=== PATIENT | female | born 1955 | race Caucasian/White ===

== ENCOUNTER → 2021-07-05 09:38 | Outpatient (CLI) | payer MEDICARE, SELFPAY ==
--- NOTE | 2021-07-05 | DI.RAD.S_ITS ---
PROCEDURE: XR KNEE LT 1TO2V INDICATIONS: Pain in unspecified knee,Low back pain,unspecifieD TECHNIQUE: 2 views of the knee were acquired. COMPARISON: None. FINDINGS: Bones: No fractures or dislocations. Moderate narrowing of the lateral compartment joint space with prominent osteophytosis and sclerosis of the lateral tibial plateau. The medial and patellofemoral joint spaces are maintained but demonstrate periarticular osteophytosis. Soft tissues: Small joint effusion. No suspicious soft tissue calcifications. IMPRESSION: Knee degeneration as detailed above. Dictated by: Jesús Keenan M.D. on 07/05/2021 at 11:35 Approved by: Jesús Keenan M.D. on 07/05/2021 at 11:36
--- NOTE | 2021-07-05 | DI.RAD.S_ITS ---
PROCEDURE: XR LUMBAR SPINE 2-3V INDICATIONS: Pain in unspecified knee,Low back pain,unspecifieD TECHNIQUE: 2 views of the lumbar spine were acquired. COMPARISON: None. FINDINGS: Bones: 5 idy-[id number]-dudwepn vertebrae are present. There is normal bony alignment. No vertebral body compression fractures. No suspicious bony lesions. Mild degenerative disc disease at L 2-L3, L3-L4 and L5-S1. Mild facet arthropathy at L4-L5 and L5-S1. Soft tissues: Overlying bowel gas pattern is normal. No suspicious soft tissue calcifications. Cholecystectomy clips are noted. There is a large amount of stool in colon. IMPRESSION: Mild degenerative disc and facet disease in lumbar spine. Dictated by: Marin Redding M.D. on 07/05/2021 at 17:20 Approved by: Marin Redding M.D. on 07/05/2021 at 17:21
--- NOTE | 2021-07-05 | DI.RAD.S_ITS ---
PROCEDURE: XR KNEE RT 1TO2V INDICATIONS: Pain in unspecified knee,Low back pain,unspecifieD TECHNIQUE: 2 views of the knee were acquired. COMPARISON: None. FINDINGS: Bones: No fractures or dislocations. Mild narrowing of the medial and patellofemoral compartment joint spaces with osteophytosis. A superior patellar enthesophyte is seen. Moderate to advanced joint space narrowing of the lateral compartment with sclerosis of the opposing articular surfaces and osteophytosis. Soft tissues: Trace joint effusion. No suspicious soft tissue calcifications. IMPRESSION: Knee degeneration as detailed above. Dictated by: Jesús Keenan M.D. on 07/05/2021 at 11:37 Approved by: Jesús Keenan M.D. on 07/05/2021 at 11:38
[2021-07-05 10:36] LABS: Add Manual Diff / Slide Review NO; Basophils Absolute Auto 100 /uL (0-100); Eosinophils Absolute Auto 300 /uL (0-450); Eosinophils Percent Auto 3.9 % (2-4); Hematocrit 40.2 % (36-46); Hemoglobin 13.9 g/dL (12.0-16.0); Lymphocytes Absolute Auto 900 /uL (1100-4500); Lymphocytes Percent Auto 12.6 % (25-40); Mean Corpuscular HGB Conc 34.5 % (30-36); Mean Corpuscular Hemoglobin 31.2 PG (26-34); Mean Corpuscular Volume 90.3 fL (80-100); Monocytes Absolute Auto 800 /uL (0-900); Monocytes Percent Auto 11.7 % (3-14); Neutrophils Absolute Auto 4800 /uL (1500-7000); Neutrophils Percent Auto 70.8 % (50-75); Platelet Count 263 X10^3/uL (150-400); Red Blood Cell Count 4.45 X10^6/uL (4.0-5.2); Red Cell Distribution Width 12.1 % (11.6-14.8); White Blood Cell Count 6.8 X10^3/uL (4.5-11.0)
[2021-07-05 10:49] LABS: Alanine Aminotransferase 17 IU/L (<35); Albumin 4.7 g/dL (3.5-5.0); Albumin Globulin Ratio 1.4 (1.0-2.8); Alkaline Phosphatase 81 U/L (38-126); Aspartate Aminotransferase 28 IU/L (14-36); BUN Creatinine Ratio 18.6 (6-22); Bilirubin Total 0.7 mg/dL (0.2-1.3); Blood Urea Nitrogen 16 mg/dL (7-17); Calcium 9.6 mg/dL (8.4-10.2); Carbon Dioxide 29 mmol/L (22-32); Chloride 103 mmol/L (98-107); Cholesterol 176 mg/dL (140-199); Estimated Glomerular Filt Rate > 60.0 mL/min (>60); Globulin 3.4 g/dL (1.7-4.1); Glucose 111 mg/dL (80-110); HDL Cholesterol 76 mg/dL (40-60); HEMOLYSIS < 15 (0-50); LDL Cholesterol Calculated 72 mg/dL (<100); Potassium 4.4 mmol/L (3.4-5.1); Sodium 141 mmol/L (137-145); Total Protein 8.1 g/dL (6.3-8.2); Triglycerides 140 mg/dL (35-150)
== END ==
PROVIDERS: PCP Physician Assistant; Referring Provider Physician Assistant; Visit Provider Physician Assistant
DX: E78.5 Hyperlipidemia, unspecified (principal); M25.569 Pain in unspecified knee; M54.59 Other low back pain
CPT/HCPCS: 36415; 72100; 73560; 80053; 80061; 85025

== ENCOUNTER → 2021-08-14 09:40 | Outpatient (CLI) | payer MEDICARE, SELFPAY ==
[2021-08-14 11:21] LABS: COVID19 -Nasal RAPID Negative (Negative)
== END ==
PROVIDERS: Family Provider Physician Assistant; PCP Physician Assistant; Visit Provider Surgery
DX: Z20.822 Contact with and (suspected) exposure to COVID-19 (principal); Z01.812 Encounter for preprocedural laboratory examination
CPT/HCPCS: 87635; C9803

== ENCOUNTER 2021-08-15 11:34 | Day surgery (SDC) | payer MEDICARE, SELFPAY ==
--- NOTE | 2021-08-15 | PATH_ITS ---
[facility] Accession Number: [id number] No. of containers..02 Tissue . 01 Material submitted: . PART A: colon - TRANSVERSE COLON POLYP PART B: colon - ASCENDING COLON POLYP . 01 Diagnosis: A. Transverse Colon, Polyp, Biopsy: Tubular adenoma. . B. Ascending Colon, Polyp, Biopsy: Tubular adenoma. MRV 08/17/2021 1047 Local . 01 Electronically signed: . Fara Currie MD, Pathologist NPI- [id number] . 01 Gross description: . Part A: TRANSVERSE COLON POLYP: Received in formalin is 1 fragment(s) of carrion, soft tissue measuring 0.3 x 0.2 x 0.1 cm submitted entirely in 1 cassette(s) Part B: ASCENDING COLON POLYP: Received in formalin is 1 fragment(s) of carrion, soft tissue measuring 0.3 x 0.2 x 0.1 cm submitted entirely in 1 cassette(s) /CPE 08/16/2021 0850 Local . 01 Pathologist provided ICD-10: D12.3, D12.2 . 01 CPT . 869087, [id number] Specimen Comment: A courtesy copy of this report has been sent to [phone] Performed at: 01 [facility] [address] [place] [address] [address] [facility] [place][note 2], [place], [place] [id number] MD Surinder Suarez MD Phone: [phone]
[2021-08-15 11:50] VITALS: BMI 30.2
[2021-08-15 11:54] VITALS: BP 141/78; PULSE 73; RESP 15; TEMP 36.6; O2SAT 96
[2021-08-15] MEDS: SODIUM CHLORIDE 0.9% 1,000 ML 70 ML IV (12:01)
--- NOTE | 2021-08-15 13:46 | PM.HP.1 ---
History of Present Illness History of Present Illness Date Patient Seen: 08/15/21 Time Patient Seen: 13:45 Chief complaint: SDC Narrative: Patient is a pleasant 66-year-old female who presented for colonoscopy. She has a personal history colon polyps. Last colonoscopy was in 2017 performed by [place] in [place]. She denies diarrhea or constipation. Patient History Medical History Chicken pox (~1966) Depression (~1998) Hyperlipidemia Measles (~1966) Mumps (~1966) Sleep apnea (~2019) Surgical History (Updated 02/25/21 @ 19:37 by Denisha Ricci) Anesthesia History of breast implant removal (~05/2020) History of cataract removal with insertion of prosthetic lens (~2019) Tubal (~1987) Family & Social History Family History (Updated 02/25/21 @ 19:41 by Denisha Ricci) Father Alzheimer's disease Mother History of heart disease Brother Stroke Grandfather Pneumonia Family/Other Congenital heart defect Social History: household members spouse Tobacco & Substance use: Smoking Status Never smoker alcohol intake current alcohol intake frequency a few times a month Substance Use Type does not use Meds Home Medications and Allergies Home Medications Medication Instructions Recorded Confirmed Type bupropion HCl 300 mg 24 hr tablet, 300 mg PO QAM #90 tab 02/15/21 08/15/21 Rx extended release (Wellbutrin XL) rosuvastatin 5 mg tablet 5 mg PO DAILY #90 tab 02/15/21 08/15/21 Rx estradiol (Estrace) 1 g VAGINAL 3XW #42.5 g 07/05/21 07/05/21 Rx meloxicam See Rx Instructions .ROUTE .COMPLEX 08/15/21 08/15/21 History Allergies Allergy/AdvReac Type Severity Reaction Status Date / Time No Known Drug Allergies Allergy Unverified 07/05/21 08:45 Review of Systems Review of Systems ROS: Yes All systems reviewed with the patient and are negative except as otherwise documented Exam Vital Signs (past 8 hours): - 08/15/21 11:54 Temperature 98 F Pulse Rate 73 Respiratory Rate 15 Blood Pressure 141/78 H Pulse Oximetry 96 Oxygen Delivery Method Room Air Const General: cooperative, healthy appearing, comfortable, well developed and well groomed HENMN Head: normocephalic and atraumatic Resp Effort & Inspection: normal respiratory effort, able to speak in complete sentences and no audible wheezes Auscultation: clear to auscultation bilaterally Cardio Rate: regular rate Rhythm: regular rhythm GI Palpation: soft and No rigid Extrem General: no clubbing, cyanosis or edema Assessment & Plan Assessment & Plan narrative: 1. Personal history colon polyps -colonoscopy today, further recommendations to follow Time Spent With Patient Critical Care time: I spent a total of [] minutes of critical care time on this patient's care today; this time is exclusive of procedural time.
[2021-08-15 14:26] VITALS: BP 120/75; PULSE 62; RESP 20; TEMP 37; O2SAT 99
--- NOTE | 2021-08-15 14:28 | PM.OP.COLON ---
Operative Date/Time/Diagnoses Date of procedure: 08/15/21 Time of procedure: 14:02 Procedure Notes Procedure in detail: Surgeon: Rekha Khan DO Procedure: Colonoscopy with polypectomy Preoperative diagnosis: 1. Personal history colon polyps, last colonoscopy 2016 Postoperative diagnosis: 1. 6 mm polyp in the transverse colon removed with cold snare 2. 3 mm polyp in the ascending colon removed with Jumbo forceps 4. Sigmoid and descending colon diverticulosis 5. Grade 1 internal hemorrhoids 6. Otherwise unremarkable colonoscopy Medications: Monitored anesthesia care Preanesthesia Assessment An H and P was performed/updated and the Px?s ASA class is 2. The procedure was discussed in detail with the patient. The potential risks and complications including infection, bleeding, missed lesions, perforation, need for surgery in case of perforation, prolonged hospital stay, and were explained. A brief question and answer period was allotted and once all questions were answered, informed consent was obtained. The patient was brought back to the procedure room and placed on standard monitoring. The patient?s vital signs were monitored continuously throughout the entire procedure. Prior to starting, a timeout was performed to confirm the patient?s identity, allergies, medications, and procedure. Procedure in detail The patient was placed in left lateral decubitus position and once adequate sedation was obtained a SHOAIB was performed. The digital rectal examination did not reveal any palpable lesions. The tip of the colonoscope was placed in the anal canal and advanced without difficulty all the way to the cecum which was identified by the appendiceal orifice and the ileocecal valve. Careful examination of all pan of the colon was performed with irrigation of any residual stool. Patient was noted to have a 3 mm polyp in the ascending colon removed with Jumbo forceps. She was noted to have a 6 mm polyp in the transverse colon removed with cold snare. Descending and sigmoid colon revealed diverticulosis. Grade 1 internal hemorrhoids were noted on retroflexion. Exam was otherwise unremarkable. The patient tolerated the procedure well and will be brought back to the recovery area to be discharged once criteria are met. The prep was judged to be good/excellent and adequate to identify polyps less than 5 mm. The withdrawal time was 11min. Complications There were no complications and estimated blood loss was minimal. Recommendations: Resume previous diet Continue outPx medications Follow up pathology results Repeat colonoscopy will be determined after pathology results are reviewed An emergency contact number was given to the patient for any complications related to the procedure
[2021-08-15 14:30] VITALS: BP 126/79; PULSE 60; RESP 17; O2SAT 99
[2021-08-15 14:36] VITALS: BP 123/66; PULSE 57; RESP 18; O2SAT 99
[2021-08-15 14:50] VITALS: BP 127/67; PULSE 67; RESP 16; TEMP 36.6; O2SAT 98
== END 2021-08-15 15:00 | disposition home or self-care (01) ==
PROVIDERS: Family Provider Physician Assistant; PCP Physician Assistant; Referring Provider Student in an Organized Health Care Education/Training Program; Visit Provider Student in an Organized Health Care Education/Training Program
PROC: 0DJD8ZZ Inspection of Lower Intestinal Tract, Via Natural or Artificial Opening Endoscopic (ICD-10-PCS; CPT 45378; principal; 2021-08-15 13:00)
DX: Z12.11 Encounter for screening for malignant neoplasm of colon (principal); Z86.010 Personal history of colon polyps; G47.33 Obstructive sleep apnea (adult) (pediatric); K57.30 Diverticulosis of large intestine without perforation or abscess without bleeding; K64.0 First degree hemorrhoids; D12.3 Benign neoplasm of transverse colon; D12.2 Benign neoplasm of ascending colon
CPT/HCPCS: 45385; 45380; J2704

== ENCOUNTER 2021-09-28 09:00 | Outpatient (RCR) | payer MEDICARE, SELFPAY ==
--- NOTE | 2021-08-16 17:05 | PT.OIE ---
Current Diagnoses Sciatica, right side (08/16/21) Muscle weakness (generalized) (08/16/21) Cystocele, unspecified (08/16/21) Incomplete uterovaginal prolapse (08/16/21) Past Medical History (Last Reviewed 08/15/21 @ 13:47 by Rekha Khan DO) Chicken pox (~1966) Depression (~1998) History of cataract removal with insertion of prosthetic lens (~2019) Hyperlipidemia Measles (~1966) Mumps (~1966) Sleep apnea (~2019) Past Surgical History (Last Updated 02/25/21 @ 19:37 by Denisha Ricci) Anesthesia History of breast implant removal (~05/2020) History of cataract removal with insertion of prosthetic lens (~2019) Tubal (~1987) Visit Care Team Role Provider Type Meghan Monique PA-C Family Provider Non-Staff Primary Care Provider Specialty: Medical Address: [address] [place] [address], [id number] Email: Behzad Rios MD Attending Provider Physician Referring Provider Specialty: VETERINARIAN Address: [address] [place] [address], [address], [place], [address] Email: [email or web address] Physical Therapy Initial Evaluation PT-OP-A Visit Information Start: 08/10/21 18:21 Freq: Status: Active Protocol: Document 08/16/21 15:24 LRN (Rec: 08/16/21 17:04 LRN [id number]) Out-Patient Physical Therapy Visit Information Visit Information Visit Type Initial Evaluation Visit Start Time 15:24 Visit Stop Time 16:13 Total Visit Minutes 49 Visit Number 1 Evaluation Information Evaluation Date 08/16/21 Precautions Precautions bilateral knee arthritis and pain, R sciatic pain - nightly . PT-OP-B Current Condition Start: 08/10/21 18:21 Freq: Status: Active Protocol: Document 08/16/21 15:24 LRN (Rec: 08/16/21 17:04 LRN [id number]) Current Condition History of Current Condition Onset Date 05/2021 Current Complaints Feels the prolapse with palpation. Hx of UTI's. History of Current Condition In the shower felt something at the base of the vaginal canal. Was told her prolapse was a stage 4. Currently does not feel she has a UTI, but doesn't have normal symptoms of UTI. R Sciatic pain that botheres her daily but now bothers her at night. R Sciatic pain and ms cramps down the RLE from moving (Dec 2021) and too much walking. Prior Treatments and Tests None Future Testing and Treatments Planned August 2021. Developmental History Developmental History Childbirth at age 42 and 30. Both vaginal births. 2nd baby was 9.5 pounds. Treatment Goals Patient/Caregiver Goals Pt goal with therapy is being on estrodial and physical therapy to strengthen PF to be able to use a pessary. 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 Baseline Function- Other Did not feel drop in inner tissues prior to May 2021. Current Functional Impairments (Reported) Functional Limitations- ADL's None. No urinary leakage. Has had recurrent UTI's in the past 5 yrs (3-4/yr). She has no symptoms of UTI, feels tired, SOB, mild increase in voiding. Personal Factors Other Personal Factors That May Effect Bilateral knee knee. Doing Therapy/Recovery remodeling of house. PT-OP-C Subjective Start: 08/10/21 18:21 Freq: Status: Active Protocol: Document 08/16/21 15:24 LRN (Rec: 08/16/21 17:04 LRN [id number]) Patient Questionnaires Pelvic Pain and Urgency/Frequency Patient Symptom Scale Pelvic Pain Score 1 OP-PT Pain Assessment Pain Assessment Grid Paper Pain Assessment Grid Completed Yes Location R Lowback/posterior thigh Pain Location Details R low back/posterior thigh Intensity 4 Scale Used Numeric (0 - 10) Frequency Intermittent PT-OP-I Pelvic Floor Start: 08/10/21 18:21 Freq: Status: Active Protocol: Document 08/16/21 15:24 LRN (Rec: 08/16/21 17:04 LRN [id number]) Pelvic Floor Assessment Urine Pelvic Floor Surgery No Other Leakage Causes Once in a while with sneeze or cough Leaks Per Day 0 Bowel Bowel Movement Frequency Prior to prolapse diagnosis was 1-2x/day, now after taking fiber 3-4x/day [place] Stool Chart Comments Sometimes naga, mostly soft . Pelvic Clock Pelvic Clock 6-9 Hypertonic Pelvic Clock Other Quick Flicks: Weakness of R side. Able to do 7 reps in 10 secs. Long Holds: Able to hold for 10 secs, decrease felt after 5 secs. Substitutes PF contraction with use gluteal and abdominal muscles. R side of lateral wall soft tissue dysfunction of hardened tissues and ridges, possible scarring. Prolapse Cystocele Grade 3 Prolapse Comments Uterus felt at finger tip of a 3 finger reach Perineal Descent Resting Absent Bearing Absent Contraction Ability Voluntary Contraction Moderate Voluntary Relaxation Moderate Manual Muscle Testing Left 3 Manual Muscle Testing Right 2 Manual Muscle Testing Anterior 3 Manual Muscle Testing Posterior 2 Muscle Endurance (Seconds) 5 Number of Quick Contractions In 10 7 Seconds Comments Pelvic Floor Comments Long Hold: 10 secs, but weakens after 5 seconds. PT-OP-J Posture/Palpation/Skin Start: 08/10/21 18:21 Freq: Status: Active Protocol: Document 08/16/21 15:24 LRN (Rec: 08/16/21 17:04 LRN [id number]) Posture Evaluation Position Standing Head/C-Spine Posture Forward Head L-Spine Posture Flattened Knee Posture (L) Genu Valgus,(R) Genu Valgus PT-OP-K Range of Motion Start: 08/10/21 18:21 Freq: Status: Active Protocol: Document 08/16/21 15:24 LRN (Rec: 08/16/21 17:04 LRN [id number]) Lumbar Spine Range of Motion Lumbar Spine Active Degrees Testing Position Standing Flexion 110 Extension 5 Rotation Left 10 Rotation Right 20 Lateral Flexion Left 10 Lateral Flexion Right 8 Comments Flex with 70 deg's hip flexion Ext with 15 deg's hip ext Hip Goniometric Range of Motion Hip Right Passive Testing Position Supine Internal Rotation 40 External Rotation 40 Left Passive Testing Position Supine Internal Rotation 35 External Rotation 45 PT-OP-M Strength Start: 08/10/21 18:21 Freq: Status: Active Protocol: Document 08/16/21 15:24 LRN (Rec: 08/16/21 17:04 LRN [id number]) Trunk Strength Trunk Manual Muscle Testing Testing Position Supine Core Stabilization Pt demonstrates rotation weakness with manual muscle testing. Hip Strength Hip Manual Muscle Testing Right Flexion (L2) 3+ Fair+ Extension (S1) 3- Fair- Abduction 2 Poor Adduction 4- Good- External Rotation 4 Good Internal Rotation 5 Normal Left Flexion (L2) 3 Fair Extension (S1) 3- Fair- Abduction 3- Fair- Adduction 3 Fair External Rotation 5 Normal Internal Rotation 5 Normal PT-OP-Q Treatments Start: 08/10/21 18:21 Freq: Status: Active Protocol: Document 08/16/21 15:24 LRN (Rec: 08/16/21 17:04 LRN [id number]) Self-Care/Home Management Treatment Education Other Education Discussed results of evaluation, goals, and plan of care (POC). Pt agreeable to goals and POC. Activities Self-Care/Home Management Activities Issued & reviewed HEP: Monica ex's and discussed exercise of Quick Flicks, Long Holds. PT-OP-T Assessment and Plan Start: 08/10/21 18:21 Freq: Status: Active Protocol: Document 08/16/21 15:24 LRN (Rec: 08/16/21 17:04 LRN [id number]) Physical Therapy Assessment Rehab Potential Rehabilitation Potential Good Evaluation Complexity Number of Personal Factors/Comorbidities 1-2 Number of Body Systems Impaired 4 or More Clinical Presentation at Evaluation Evolving Impairments Impairments Pain,Posture,ROM,Strength Other Impairments Cystocele Uterine Prolapse. Goals Three Impairment Decreased PF strength Impairment PF strength 3/5 Short Term Goal (STG) Pt will be educated in how to have bowel movements with the least amount of intra- abdominal pressure possible. STG Duration 09/14/21 Food Truck Caterer Goal (LTG) Increase PF muscle strength grade 4-5/5 with endurance of 10 secs in order for pt to be fit for pessary. LTG Duration 10/29/21 Two Impairment Poor coordination of PF contractions Impairment Uses substitute muscles to get a PF contraction. Short Term Goal (STG) Pt will be able to manage changes in intraabdominal pressure with appropriate PF muscle activation (breathing, transfers, lifting, reaching). STG Duration 09/14/21 Food Truck Caterer Goal (LTG) Pt will be able to perform a PF contraction without use of substitute muscles. LTG Duration 10/29/21 One Impairment Lacks appropriate self care HEP Short Term Goal (STG) Pt will be educated in proper body mechanics for daily activities and transfers. STG Duration 09/07/21 Food Truck Caterer Goal (LTG) Pt will be independent in a self care HEP of PF strengthening and hip/LB stretches. LTG Duration 10/29/21 Assessment Summary Assessment Pt presents in standing/supine with grade 3 cystocele. Her bladder does not drop beyond the hymen at rest or with a cough. With vaginal palpation she denies tenderness. She has a palpable soft tissue presence at the end of a 3 finger insertion reach. The pt has a palpable superficial and deep pelvic floor (PF) contraction with weakness more in the lateral pan. Her contractions are palpable with the L side being stronger than the right. She uses substitute muscles to obtain a PF contraction and demonstrates decreased core stability. The pt is having R low back/sciatic pain that will hinder her rehabilitation ; therefore her R sciatic pain will need to be addressed during her PF rehabilitation in order to promote PF strengthening. The pt will benefit from skilled physical therapy to achieve the above stated goals. Physical Therapy Plan Frequency and Duration Frequency of Treatment 1x/Week Plan of Care Start Date 08/16/21 Plan of Care End Date 10/29/21 Therapeutic Interventions Therapeutic Interventions Home Exercise Program,Manual Therapy,Neuromuscular Re- education,Patient/Caregiver Education,Self-Care/Home Management,Soft Tissue Mobilization,Therapeutic Activities,Therapeutic Exercises Modalities Biofeedback,Cold Pack/Ice Massage,Electric Stimulation, Ultrasound Next Visit Focus/Plan Next Note Type Treatment Note Next Visit Plan Pt education/ADL training: PF anatomy & function, bladder health & defecation/ micturition training for proper contraction (without sub muscles). Therapeutic ex instruction for the PF/LE and trunk muscles with and without EMG biofeedback. Assess: PSLR HEP: Hip ROM ex (IR L>R, ER < L), Hip strengthening (flex, ext, AB, AD), core stab. Manual: Sacral balancing for R sciatic pain. Kinetic activities and neuromuscular reeducation to improve functional use of the PF in tasks that cause symptoms. Consider home EMG biofeedback or endurance training.
--- NOTE | 2021-08-16 17:05 | PT.OPPOC ---
Physical, Occupational & Speech Therapy At [facility] Current Diagnoses Sciatica, right side (08/16/21) Muscle weakness (generalized) (08/16/21) Cystocele, unspecified (08/16/21) Incomplete uterovaginal prolapse (08/16/21) Visit Care Team Role Provider Type Meghan Monique PA-C Family Provider Non-Staff Primary Care Provider Specialty: Medical Address: [address] [place] [address], [id number] Email: Behzad Rios MD Attending Provider Physician Referring Provider Specialty: COMB CAPPER Address: [facility] [place] [address], [address], [place], [address] Email: [email or web address] Plan Of Care PT-OP-T Assessment and Plan Start: 08/10/21 18:21 Freq: Status: Active Protocol: Document 08/16/21 15:24 LRN (Rec: 08/16/21 17:04 LRN [id number]) Physical Therapy Assessment Rehab Potential Rehabilitation Potential Good Evaluation Complexity Number of Personal Factors/Comorbidities 1-2 Number of Body Systems Impaired 4 or More Clinical Presentation at Evaluation Evolving Impairments Impairments Pain,Posture,ROM,Strength Other Impairments Cystocele Uterine Prolapse. Goals Three Impairment Decreased PF strength Impairment PF strength 3/5 Short Term Goal (STG) Pt will be educated in how to have bowel movements with the least amount of intra- abdominal pressure possible. STG Duration 09/14/21 Longterm Goal (LTG) Increase PF muscle strength grade 4-5/5 with endurance of 10 secs in order for pt to be fit for pessary. LTG Duration 10/29/21 Two Impairment Poor coordination of PF contractions Impairment Uses substitute muscles to get a PF contraction. Short Term Goal (STG) Pt will be able to manage changes in intraabdominal pressure with appropriate PF muscle activation (breathing, transfers, lifting, reaching). STG Duration 09/14/21 Longterm Goal (LTG) Pt will be able to perform a PF contraction without use of substitute muscles. LTG Duration 10/29/21 One Impairment Lacks appropriate self care HEP Short Term Goal (STG) Pt will be educated in proper body mechanics for daily activities and transfers. STG Duration 09/07/21 Longterm Goal (LTG) Pt will be independent in a self care HEP of PF strengthening and hip/LB stretches. LTG Duration 10/29/21 Assessment Summary Assessment Pt presents in standing/supine with grade 3 cystocele. Her bladder does not drop beyond the hymen at rest or with a cough. With vaginal palpation she denies tenderness. She has a palpable soft tissue presence at the end of a 3 finger insertion reach. The pt has a palpable superficial and deep pelvic floor (PF) contraction with weakness more in the lateral pan. Her contractions are palpable with the L side being stronger than the right. She uses substitute muscles to obtain a PF contraction and demonstrates decreased core stability. The pt is having R low back/sciatic pain that will hinder her rehabilitation ; therefore her R sciatic pain will need to be addressed during her PF rehabilitation in order to promote PF strengthening. The pt will benefit from skilled physical therapy to achieve the above stated goals. Physical Therapy Plan Frequency and Duration Frequency of Treatment 1x/Week Plan of Care Start Date 08/16/21 Plan of Care End Date 10/29/21 Therapeutic Interventions Therapeutic Interventions Home Exercise Program,Manual Therapy,Neuromuscular Re- education,Patient/Caregiver Education,Self-Care/Home Management,Soft Tissue Mobilization,Therapeutic Activities,Therapeutic Exercises Modalities Biofeedback,Cold Pack/Ice Massage,Electric Stimulation, Ultrasound Next Visit Focus/Plan Next Note Type Treatment Note Next Visit Plan Pt education/ADL training: PF anatomy & function, bladder health & defecation/ micturition training for proper contraction (without sub muscles). Therapeutic ex instruction for the PF/LE and trunk muscles with and without EMG biofeedback. Assess: PSLR HEP: Hip ROM ex (IR L>R, ER < L), Hip strengthening (flex, ext, AB, AD), core stab. Manual: Sacral balancing for R sciatic pain. Kinetic activities and neuromuscular reeducation to improve functional use of the PF in tasks that cause symptoms. Consider home EMG biofeedback or endurance training. Plan of Care Dates Plan of Care Start Date 08/16/21 Plan of Care End Date 10/29/21 Electronically Signed by: Kandy Daniel, PT 08/16/21 0551 If you are in agreement with this Plan of Care, please return a signed and dated copy. I have reviewed this Plan of Care and certify that the skilled therapy services above are required to meet the patient?s needs. Physician Signature Date Printed Name and Credentials Clinical Instructor Signature Printed Name and Credentials
--- NOTE | 2021-08-21 16:33 | PT.OTN ---
Current Diagnoses Sciatica, right side (08/21/21) Muscle weakness (generalized) (08/21/21) Cystocele, unspecified (08/21/21) Incomplete uterovaginal prolapse (08/21/21) Physical Therapy Treatment Note PT-OP-A Visit Information Start: 08/10/21 18:21 Freq: Status: Active Protocol: Document 08/21/21 15:18 LRN (Rec: 08/21/21 16:32 LRN [id number]) Out-Patient Physical Therapy Visit Information Visit Information Visit Type Treatment Note Visit Start Time 15:18 Visit Stop Time 15:58 Total Visit Minutes 40 Visit Number 2 Evaluation Information Evaluation Date 08/16/21 Precautions Precautions bilateral knee arthritis and pain, R sciatic pain - nightly . PT-OP-B Current Condition Start: 08/10/21 18:21 Freq: Status: Active Protocol: Document 08/16/21 15:24 LRN (Rec: 08/16/21 17:04 LRN [id number]) Current Condition History of Current Condition Onset Date 05/2021 Current Complaints Feels the prolapse with palpation. Hx of UTI's. History of Current Condition In the shower felt something at the base of the vaginal canal. Was told her prolapse was a stage 4. Currently does not feel she has a UTI, but doesn't have normal symptoms of UTI. R Sciatic pain that botheres her daily but now bothers her at night. R Sciatic pain and ms cramps down the RLE from moving (Dec 2021) and too much walking. Prior Treatments and Tests None Future Testing and Treatments Planned August 2021. Developmental History Developmental History Childbirth at age 42 and 30. Both vaginal births. 2nd baby was 9.5 pounds. Treatment Goals Patient/Caregiver Goals Pt goal with therapy is being on estrodial and physical therapy to strengthen PF to be able to use a pessary. 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 Baseline Function- Other Did not feel drop in inner tissues prior to May 2021. Current Functional Impairments (Reported) Functional Limitations- ADL's None. No urinary leakage. Has had recurrent UTI's in the past 5 yrs (3-4/yr). She has no symptoms of UTI, feels tired, SOB, mild increase in voiding. Personal Factors Other Personal Factors That May Effect Bilateral knee knee. Doing Therapy/Recovery remodeling of house. PT-OP-C Subjective Start: 08/10/21 18:21 Freq: Status: Active Protocol: Document 08/21/21 15:18 LRN (Rec: 08/21/21 16:32 LRN [id number]) OP-PT Subjective Patient Comments Patient Comments Doing Keg[place] fast and slow contractions. PT-OP-I Pelvic Floor Start: 08/10/21 18:21 Freq: Status: Active Protocol: Document 08/16/21 15:24 LRN (Rec: 08/16/21 17:04 LRN [id number]) Pelvic Floor Assessment Urine Pelvic Floor Surgery No Other Leakage Causes Once in a while with sneeze or cough Leaks Per Day 0 Bowel Bowel Movement Frequency Prior to prolapse diagnosis was 1-2x/day, now after taking fiber 3-4x/day [place] Stool Chart Comments Sometimes naga, mostly soft . Pelvic Clock Pelvic Clock 6-9 Hypertonic Pelvic Clock Other Quick Flicks: Weakness of R side. Able to do 7 reps in 10 secs. Long Holds: Able to hold for 10 secs, decrease felt after 5 secs. Substitutes PF contraction with use gluteal and abdominal muscles. R side of lateral wall soft tissue dysfunction of hardened tissues and ridges, possible scarring. Prolapse Cystocele Grade 3 Prolapse Comments Uterus felt at finger tip of a 3 finger reach Perineal Descent Resting Absent Bearing Absent Contraction Ability Voluntary Contraction Moderate Voluntary Relaxation Moderate Manual Muscle Testing Left 3 Manual Muscle Testing Right 2 Manual Muscle Testing Anterior 3 Manual Muscle Testing Posterior 2 Muscle Endurance (Seconds) 5 Number of Quick Contractions In 10 7 Seconds Comments Pelvic Floor Comments Long Hold: 10 secs, but weakens after 5 seconds. PT-OP-J Posture/Palpation/Skin Start: 08/10/21 18:21 Freq: Status: Active Protocol: Document 08/16/21 15:24 LRN (Rec: 08/16/21 17:04 LRN [id number]) Posture Evaluation Position Standing Head/C-Spine Posture Forward Head L-Spine Posture Flattened Knee Posture (L) Genu Valgus,(R) Genu Valgus PT-OP-K Range of Motion Start: 08/10/21 18:21 Freq: Status: Active Protocol: Document 08/16/21 15:24 LRN (Rec: 08/16/21 17:04 LRN [id number]) Lumbar Spine Range of Motion Lumbar Spine Active Degrees Testing Position Standing Flexion 110 Extension 5 Rotation Left 10 Rotation Right 20 Lateral Flexion Left 10 Lateral Flexion Right 8 Comments Flex with 70 deg's hip flexion Ext with 15 deg's hip ext Hip Goniometric Range of Motion Hip Right Passive Testing Position Supine Internal Rotation 40 External Rotation 40 Left Passive Testing Position Supine Internal Rotation 35 External Rotation 45 PT-OP-M Strength Start: 08/10/21 18:21 Freq: Status: Active Protocol: Document 08/16/21 15:24 LRN (Rec: 08/16/21 17:04 LRN [id number]) Trunk Strength Trunk Manual Muscle Testing Testing Position Supine Core Stabilization Pt demonstrates rotation weakness with manual muscle testing. Hip Strength Hip Manual Muscle Testing Right Flexion (L2) 3+ Fair+ Extension (S1) 3- Fair- Abduction 2 Poor Adduction 4- Good- External Rotation 4 Good Internal Rotation 5 Normal Left Flexion (L2) 3 Fair Extension (S1) 3- Fair- Abduction 3- Fair- Adduction 3 Fair External Rotation 5 Normal Internal Rotation 5 Normal PT-OP-Q Treatments Start: 08/10/21 18:21 Freq: Status: Active Protocol: Document 08/21/21 15:18 LRN (Rec: 08/21/21 16:32 LRN [id number]) Therapeutic Exercises Supine Exercises LE Roll in/out w/PF/Deep breathing Supine Exercise Name LE roll in/out w/PF/Deep Breathing Reps/Minutes 8' Comments Much cuing needed for coordination of ex. Deep Breathing Supine Exercise Name Deep Breathing Reps/Minutes 3' Comments Much cuing needed to slow breath Piriformis stretch Supine Exercise Name Piriformis stretch (L>R), knee to opp shoulder Side bilateral Reps/Minutes 1' each x 2 Comments Extra time for training on breath & PF contract for positioning Lateral Hip stretch Supine Exercise Name Lateral Hip stretch (L>R) Side bilateral Reps/Minutes 1' each Hip ER stretch Supine Exercise Name Fig 4 stretch (R>L) Side bilateral Reps/Minutes 1' each x 2 Comments Extra time for training on breath & PF contract for positioning Self-Care/Home Management Treatment Education Patient Education Home Exercise Program Other Education Pt education in anatomy and function of PF and tension connection to bilateral hips. Pt education in core anatomy for abdominal pressure system for moving into exercises, coordinating breathing with movement & defecation training for to manage changes in intraabdominal pressure with appropriate PF muscle activation (breathing, squatty potty). Discussed use of fiber for regular bowel movements, bowel movement norms, and use . Educated pt in PF anatomy. Pt education in how to slow breath during deep breathing exercise (use of small straw). Activities Self-Care/Home Management Activities Issued and reviewed handouts for pelvic anatomy. Issued & reviewed HEP for diaphragmatic breathing and hip ER/IR stretches. PT-OP-T Assessment and Plan Start: 08/10/21 18:21 Freq: Status: Active Protocol: Document 08/21/21 15:18 LRN (Rec: 08/21/21 16:32 LRN [id number]) Physical Therapy Assessment Goals Three Impairment Decreased PF strength Impairment PF strength 3/5 Short Term Goal (STG) Pt will be educated in how to have bowel movements with the least amount of intra- abdominal pressure possible. (08/21/21: Pt I/S in use of breath and squatty potty for reducing need of intra- abdominal pressure for having a BM). STG Duration 09/14/21 (08/21/21: MET GOAL) Milk Drier Goal (LTG) Increase PF muscle strength grade 4-5/5 with endurance of 10 secs in order for pt to be fit for pessary. LTG Duration 10/29/21 Two Impairment Poor coordination of PF contractions Impairment Uses substitute muscles to get a PF contraction. Short Term Goal (STG) Pt will be able to manage changes in intraabdominal pressure with appropriate PF muscle activation (breathing, transfers, lifting, reaching). STG Duration 09/14/21 [place]rier Goal (LTG) Pt will be able to perform a PF contraction without use of substitute muscles. LTG Duration 10/29/21 One Impairment Lacks appropriate self care HEP Short Term Goal (STG) Pt will be educated in proper body mechanics for daily activities and transfers. STG Duration 09/07/21 Retirement Goal (LTG) Pt will be independent in a self care HEP of PF strengthening and hip/LB stretches. (08/21/21: HEP issued: hip ER /IR stretches) LTG Duration 10/29/21 (08/21/21: Progressed) Progress Towards Goals Progress Comments Progressed HEP. STG #3 MET. Assessment Summary Assessment Pt is very receptive to educational training and shows good understanding of pressure system of the core and need to coordinate breathing and PF contraction for transfers and movement getting into ex positions. The pt is obviously limited in hip ER mobility. Physical Therapy Plan Frequency and Duration Frequency of Treatment 1x/Week Plan of Care Start Date 08/16/21 Plan of Care End Date 10/29/21 Next Visit Focus/Plan Next Note Type Treatment Note Next Visit Plan Review issued HEP of hip stretches, add iliopsoas or hamstring stretch if needed ( assess for tightness). Pt education/ADL training: Bladder health & training for proper PF contraction (without sub muscles) and with transfers, lifting, reaching. Therapeutic ex instruction for the PF/LE and trunk muscles with and without EMG biofeedback. Review HEP issued: Hip ROM ex (IR L>R, ER R>L) Assess: PSLR HEP:, Hip strengthening (flex, ext, AB, AD), core stab. Manual: Sacral balancing for R sciatic pain. Kinetic activities and neuromuscular reeducation to improve functional use of the PF in tasks that cause symptoms. Consider home EMG biofeedback or endurance training.
--- NOTE | 2021-08-30 12:38 | PT.OTN ---
Current Diagnoses Sciatica, right side (08/30/21) Muscle weakness (generalized) (08/30/21) Cystocele, unspecified (08/30/21) Incomplete uterovaginal prolapse (08/30/21) Physical Therapy Treatment Note PT-OP-A Visit Information Start: 08/10/21 18:21 Freq: Status: Active Protocol: Document 08/30/21 09:05 LRN (Rec: 08/30/21 09:49 LRN [id number]) Out-Patient Physical Therapy Visit Information Visit Information Visit Type Treatment Note Visit Start Time 09:07 Visit Stop Time 09:47 Total Visit Minutes 40 Visit Number 3 Evaluation Information Evaluation Date 08/16/21 Precautions Precautions bilateral knee arthritis and pain, R sciatic pain - nightly . PT-OP-B Current Condition Start: 08/10/21 18:21 Freq: Status: Active Protocol: Document 08/16/21 15:24 LRN (Rec: 08/16/21 17:04 LRN [id number]) Current Condition History of Current Condition Onset Date 05/2021 Current Complaints Feels the prolapse with palpation. Hx of UTI's. History of Current Condition In the shower felt something at the base of the vaginal canal. Was told her prolapse was a stage 4. Currently does not feel she has a UTI, but doesn't have normal symptoms of UTI. R Sciatic pain that botheres her daily but now bothers her at night. R Sciatic pain and ms cramps down the RLE from moving (Dec 2021) and too much walking. Prior Treatments and Tests None Future Testing and Treatments Planned August 2021. Developmental History Developmental History Childbirth at age 42 and 30. Both vaginal births. 2nd baby was 9.5 pounds. Treatment Goals Patient/Caregiver Goals Pt goal with therapy is being on estrodial and physical therapy to strengthen PF to be able to use a pessary. 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 Baseline Function- Other Did not feel drop in inner tissues prior to May 2021. Current Functional Impairments (Reported) Functional Limitations- ADL's None. No urinary leakage. Has had recurrent UTI's in the past 5 yrs (3-4/yr). She has no symptoms of UTI, feels tired, SOB, mild increase in voiding. Personal Factors Other Personal Factors That May Effect Bilateral knee knee. Doing Therapy/Recovery remodeling of house. PT-OP-C Subjective Start: 08/10/21 18:21 Freq: Status: Active Protocol: Document 08/30/21 09:05 LRN (Rec: 08/30/21 09:49 LRN [id number]) OP-PT Subjective Patient Comments Patient Comments No change. PT-OP-I Pelvic Floor Start: 08/10/21 18:21 Freq: Status: Active Protocol: Document 08/16/21 15:24 LRN (Rec: 08/16/21 17:04 LRN [id number]) Pelvic Floor Assessment Urine Pelvic Floor Surgery No Other Leakage Causes Once in a while with sneeze or cough Leaks Per Day 0 Bowel Bowel Movement Frequency Prior to prolapse diagnosis was 1-2x/day, now after taking fiber 3-4x/day [place] Stool Chart Comments Sometimes naga, mostly soft . Pelvic Clock Pelvic Clock 6-9 Hypertonic Pelvic Clock Other Quick Flicks: Weakness of R side. Able to do 7 reps in 10 secs. Long Holds: Able to hold for 10 secs, decrease felt after 5 secs. Substitutes PF contraction with use gluteal and abdominal muscles. R side of lateral wall soft tissue dysfunction of hardened tissues and ridges, possible scarring. Prolapse Cystocele Grade 3 Prolapse Comments Uterus felt at finger tip of a 3 finger reach Perineal Descent Resting Absent Bearing Absent Contraction Ability Voluntary Contraction Moderate Voluntary Relaxation Moderate Manual Muscle Testing Left 3 Manual Muscle Testing Right 2 Manual Muscle Testing Anterior 3 Manual Muscle Testing Posterior 2 Muscle Endurance (Seconds) 5 Number of Quick Contractions In 10 7 Seconds Comments Pelvic Floor Comments Long Hold: 10 secs, but weakens after 5 seconds. PT-OP-J Posture/Palpation/Skin Start: 08/10/21 18:21 Freq: Status: Active Protocol: Document 08/16/21 15:24 LRN (Rec: 08/16/21 17:04 LRN [id number]) Posture Evaluation Position Standing Head/C-Spine Posture Forward Head L-Spine Posture Flattened Knee Posture (L) Genu Valgus,(R) Genu Valgus PT-OP-K Range of Motion Start: 08/10/21 18:21 Freq: Status: Active Protocol: Document 08/16/21 15:24 LRN (Rec: 08/16/21 17:04 LRN [id number]) Lumbar Spine Range of Motion Lumbar Spine Active Degrees Testing Position Standing Flexion 110 Extension 5 Rotation Left 10 Rotation Right 20 Lateral Flexion Left 10 Lateral Flexion Right 8 Comments Flex with 70 deg's hip flexion Ext with 15 deg's hip ext Hip Goniometric Range of Motion Hip Right Passive Testing Position Supine Internal Rotation 40 External Rotation 40 Left Passive Testing Position Supine Internal Rotation 35 External Rotation 45 PT-OP-M Strength Start: 08/10/21 18:21 Freq: Status: Active Protocol: Document 08/16/21 15:24 LRN (Rec: 08/16/21 17:04 LRN [id number]) Trunk Strength Trunk Manual Muscle Testing Testing Position Supine Core Stabilization Pt demonstrates rotation weakness with manual muscle testing. Hip Strength Hip Manual Muscle Testing Right Flexion (L2) 3+ Fair+ Extension (S1) 3- Fair- Abduction 2 Poor Adduction 4- Good- External Rotation 4 Good Internal Rotation 5 Normal Left Flexion (L2) 3 Fair Extension (S1) 3- Fair- Abduction 3- Fair- Adduction 3 Fair External Rotation 5 Normal Internal Rotation 5 Normal PT-OP-Q Treatments Start: 08/10/21 18:21 Freq: Status: Active Protocol: Document 08/30/21 09:05 LRN (Rec: 08/30/21 09:49 LRN [id number]) Therapeutic Exercises Supine Exercises PF contraction Supine Exercise Name PF contraction without substitute ms. Reps/Minutes 8' Comments Pt needed phys & v cuing for isolation of PF. LE Roll in/out w/PF/Deep breathing Supine Exercise Name LE roll in/out w/PF/Deep Breathing Reps/Minutes 7' Comments Cuing needed for coordination of ex. Piriformis stretch Supine Exercise Name Piriformis stretch (L>R), knee to opp shoulder Side bilateral Reps/Minutes 1' each x 2 Comments Extra time for training on breath & PF contract for positioning Lateral Hip stretch Supine Exercise Name Lateral Hip stretch (L>R) Side bilateral Reps/Minutes 1' each Hip ER stretch Supine Exercise Name Fig 4 stretch (R>L) Side bilateral Reps/Minutes 1' each x 2 Comments Extra time for training on breath & PF contract for positioning Self-Care/Home Management Treatment Education Patient Education Home Exercise Program Other Education Pt educated in proper body mechanics for daily activities and transfers. Reviewed pt educated in intraabdominal pressure with appropriate PF muscle activation (breathing, transfers, lifting, reaching). Activities Self-Care/Home Management Activities Issued & reviewed HEP: ROll for Control Protocol. Issued & reviewed hanout for daily activities proper body mechanics. Issued & reviewed handout for General Vulvar Care nad Genital Hygiene for Women. PT-OP-T Assessment and Plan Start: 08/10/21 18:21 Freq: Status: Active Protocol: Document 08/30/21 09:05 LRN (Rec: 08/30/21 09:49 LRN [id number]) Physical Therapy Assessment Goals Three Impairment Decreased PF strength Impairment PF strength 3/5 Short Term Goal (STG) Pt will be educated in how to have bowel movements with the least amount of intra- abdominal pressure possible. (08/21/21: Pt I/S in use of breath and squatty potty for reducing need of intra- abdominal pressure for having a BM). STG Duration 09/14/21 (08/21/21: MET GOAL) Alf Goal (LTG) Increase PF muscle strength grade 4-5/5 with endurance of 10 secs in order for pt to be fit for pessary. LTG Duration 10/29/21 Two Impairment Poor coordination of PF contractions Impairment Uses substitute muscles to get a PF contraction. Short Term Goal (STG) Pt will be able to manage changes in intraabdominal pressure with appropriate PF muscle activation (breathing, transfers, lifting, reaching). STG Duration 09/14/21 (08/30/21: MET GOAL) Alf Goal (LTG) Pt will be able to perform a PF contraction without use of substitute muscles. LTG Duration 10/29/21 One Impairment Lacks appropriate self care HEP Short Term Goal (STG) Pt will be educated in proper body mechanics for daily activities and transfers. STG Duration 09/07/21 (08/30/21: MET GOAL) Alf Goal (LTG) Pt will be independent in a self care HEP of PF strengthening and hip/LB stretches. (08/21/21: HEP issued: hip ER /IR stretches) LTG Duration 10/29/21 (08/21/21: Progressed) Progress Towards Goals Progress Comments Progressed HEP Assessment Summary Assessment Pt hip ER is tight bilaterally , almost appears L>R today. Pt was able to isolate PF contractions after training and education. Pt was very receptive to intra-abdominal pressure system education and body mechanics training and was able to demonstrate good knowledge with transfers at end of therapy. Verbal cuing may be needed in the future. Physical Therapy Plan Frequency and Duration Frequency of Treatment 1x/Week Plan of Care Start Date 08/16/21 Plan of Care End Date 10/29/21 Next Visit Focus/Plan Next Note Type Treatment Note Next Visit Plan Review: Training for proper PF contraction (without sub muscles) and verbal reminder ( if needed) with transfers, lifting, reaching. Therapeutic ex instruction for the PF/LE and trunk muscles with and without EMG biofeedback. Assess: PSLR HEP:, Hip strengthening (flex, ext, AB, AD), core stab. Monitor: Hip ROM ex (IR L>R, ER R>L) Manual: Sacral balancing for R sciatic pain. Kinetic activities and neuromuscular reeducation to improve functional use of the PF in tasks that cause symptoms. Consider home EMG biofeedback or endurance training.
--- NOTE | 2021-09-20 17:49 | PT.OTN ---
Current Diagnoses Sciatica, right side (09/20/21) Muscle weakness (generalized) (09/20/21) Incomplete uterovaginal prolapse (09/20/21) Physical Therapy Treatment Note PT-OP-A Visit Information Start: 08/10/21 18:21 Freq: Status: Active Protocol: Document 09/20/21 10:48 LRN (Rec: 09/20/21 12:43 LRN [id number]) Out-Patient Physical Therapy Visit Information Visit Information Visit Type Treatment Note Visit Start Time 10:48 Visit Stop Time 11:28 Total Visit Minutes 40 Visit Number 4 Evaluation Information Evaluation Date 08/16/21 Precautions Precautions bilateral knee arthritis and pain, R sciatic pain - nightly . PT-OP-B Current Condition Start: 08/10/21 18:21 Freq: Status: Active Protocol: Document 08/16/21 15:24 LRN (Rec: 08/16/21 17:04 LRN [id number]) Current Condition History of Current Condition Onset Date 05/2021 Current Complaints Feels the prolapse with palpation. Hx of UTI's. History of Current Condition In the shower felt something at the base of the vaginal canal. Was told her prolapse was a stage 4. Currently does not feel she has a UTI, but doesn't have normal symptoms of UTI. R Sciatic pain that botheres her daily but now bothers her at night. R Sciatic pain and ms cramps down the RLE from moving (Dec 2021) and too much walking. Prior Treatments and Tests None Future Testing and Treatments Planned August 2021. Developmental History Developmental History Childbirth at age 42 and 30. Both vaginal births. 2nd baby was 9.5 pounds. Treatment Goals Patient/Caregiver Goals Pt goal with therapy is being on estrodial and physical therapy to strengthen PF to be able to use a pessary. 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 Baseline Function- Other Did not feel drop in inner tissues prior to May 2021. Current Functional Impairments (Reported) Functional Limitations- ADL's None. No urinary leakage. Has had recurrent UTI's in the past 5 yrs (3-4/yr). She has no symptoms of UTI, feels tired, SOB, mild increase in voiding. Personal Factors Other Personal Factors That May Effect Bilateral knee knee. Doing Therapy/Recovery remodeling of house. PT-OP-C Subjective Start: 08/10/21 18:21 Freq: Status: Active Protocol: Document 09/20/21 10:48 LRN (Rec: 09/20/21 12:43 LRN [id number]) OP-PT Subjective Patient Comments Patient Comments States she is more aware of proper mvmt and breathing and with going to bathroom. Not pushing with BM voiding. PT-OP-I Pelvic Floor Start: 08/10/21 18:21 Freq: Status: Active Protocol: Document 08/16/21 15:24 LRN (Rec: 08/16/21 17:04 LRN [id number]) Pelvic Floor Assessment Urine Pelvic Floor Surgery No Other Leakage Causes Once in a while with sneeze or cough Leaks Per Day 0 Bowel Bowel Movement Frequency Prior to prolapse diagnosis was 1-2x/day, now after taking fiber 3-4x/day [place] Stool Chart Comments Sometimes naga, mostly soft . Pelvic Clock Pelvic Clock 6-9 Hypertonic Pelvic Clock Other Quick Flicks: Weakness of R side. Able to do 7 reps in 10 secs. Long Holds: Able to hold for 10 secs, decrease felt after 5 secs. Substitutes PF contraction with use gluteal and abdominal muscles. R side of lateral wall soft tissue dysfunction of hardened tissues and ridges, possible scarring. Prolapse Cystocele Grade 3 Prolapse Comments Uterus felt at finger tip of a 3 finger reach Perineal Descent Resting Absent Bearing Absent Contraction Ability Voluntary Contraction Moderate Voluntary Relaxation Moderate Manual Muscle Testing Left 3 Manual Muscle Testing Right 2 Manual Muscle Testing Anterior 3 Manual Muscle Testing Posterior 2 Muscle Endurance (Seconds) 5 Number of Quick Contractions In 10 7 Seconds Comments Pelvic Floor Comments Long Hold: 10 secs, but weakens after 5 seconds. PT-OP-J Posture/Palpation/Skin Start: 08/10/21 18:21 Freq: Status: Active Protocol: Document 08/16/21 15:24 LRN (Rec: 08/16/21 17:04 LRN [id number]) Posture Evaluation Position Standing Head/C-Spine Posture Forward Head L-Spine Posture Flattened Knee Posture (L) Genu Valgus,(R) Genu Valgus PT-OP-K Range of Motion Start: 08/10/21 18:21 Freq: Status: Active Protocol: Document 08/16/21 15:24 LRN (Rec: 08/16/21 17:04 LRN [id number]) Lumbar Spine Range of Motion Lumbar Spine Active Degrees Testing Position Standing Flexion 110 Extension 5 Rotation Left 10 Rotation Right 20 Lateral Flexion Left 10 Lateral Flexion Right 8 Comments Flex with 70 deg's hip flexion Ext with 15 deg's hip ext Hip Goniometric Range of Motion Hip Right Passive Testing Position Supine Internal Rotation 40 External Rotation 40 Left Passive Testing Position Supine Internal Rotation 35 External Rotation 45 PT-OP-M Strength Start: 08/10/21 18:21 Freq: Status: Active Protocol: Document 08/16/21 15:24 LRN (Rec: 08/16/21 17:04 LRN [id number]) Trunk Strength Trunk Manual Muscle Testing Testing Position Supine Core Stabilization Pt demonstrates rotation weakness with manual muscle testing. Hip Strength Hip Manual Muscle Testing Right Flexion (L2) 3+ Fair+ Extension (S1) 3- Fair- Abduction 2 Poor Adduction 4- Good- External Rotation 4 Good Internal Rotation 5 Normal Left Flexion (L2) 3 Fair Extension (S1) 3- Fair- Abduction 3- Fair- Adduction 3 Fair External Rotation 5 Normal Internal Rotation 5 Normal PT-OP-Q Treatments Start: 08/10/21 18:21 Freq: Status: Active Protocol: Document 09/20/21 10:48 LRN (Rec: 09/20/21 12:43 LRN [id number]) Therapeutic Exercises Supine Exercises PF contraction Supine Exercise Name PF contraction without substitute ms. Reps/Minutes 8' Comments Pt needed phys & v cuing for isolation of PF. LE Roll in/out w/PF/Deep breathing Supine Exercise Name LE roll in/out w/PF/Deep Breathing Reps/Minutes 7' Comments Cuing needed for coordination of ex. Standing Exercises PF/Hamstring stretch Standing Exercise Name PF strengthening/HS stretching Reps/Minutes 5' Comments Extra time for awareness of bladder Self-Care/Home Management Treatment Education Patient Education Body Mechanics,Posture Other Education Educated, and had extensive discussion of use of breathing , posturing for bowel/urinary voiding. Educated, issued & reviewed list of foods and beverages suggestions for bladder diet. Issued, reviewed briefly Bowel Program for a helathy bowel function. Discussed connection between core stabilization and PF strengthening for stability of the abdominal canister and for abdominal pressure management. Activities Self-Care/Home Management Activities Issued & reviewed HEP: Clamshell w/PF quick flicks/ long holds. PT-OP-T Assessment and Plan Start: 08/10/21 18:21 Freq: Status: Active Protocol: Document 09/20/21 10:48 LRN (Rec: 09/20/21 12:43 LRN [id number]) Physical Therapy Assessment Goals Three Impairment Decreased PF strength Impairment PF strength 3/5 Short Term Goal (STG) Pt will be educated in how to have bowel movements with the least amount of intra- abdominal pressure possible. (08/21/21: Pt I/S in use of breath and squatty potty for reducing need of intra- abdominal pressure for having a BM). STG Duration 09/14/21 (08/21/21: MET GOAL) Bandoleer Straightener Stamper Goal (LTG) Increase PF muscle strength grade 4-5/5 with endurance of 10 secs in order for pt to be fit for pessary. LTG Duration 10/29/21 Two Impairment Poor coordination of PF contractions Impairment Uses substitute muscles to get a PF contraction. Short Term Goal (STG) Pt will be able to manage changes in intraabdominal pressure with appropriate PF muscle activation (breathing, transfers, lifting, reaching). STG Duration 09/14/21 (08/30/21: MET GOAL) Fdc Goal (LTG) Pt will be able to perform a PF contraction without use of substitute muscles. (09/20/21: Pt required 1x v. cuing to perform PF contraction without substitute muscles) LTG Duration 10/29/21 (09/20/21: Progressing) One Impairment Lacks appropriate self care HEP Short Term Goal (STG) Pt will be educated in proper body mechanics for daily activities and transfers. STG Duration 09/07/21 (08/30/21: MET GOAL) Fdc Goal (LTG) Pt will be independent in a self care HEP of PF strengthening and hip/LB stretches. (08/21/21: HEP issued: hip ER /IR stretches) (09/20/21: HEP: Clamshell) LTG Duration 10/29/21 (09/20/21: Progressed) Assessment Summary Assessment Pt is able to perform a PF contraction without use of substitute muscles, but required verbal cuing initially to perform. Pt demonstrates good breathing technique with transfers and general mobility. Pt is improving in her ability to manage the pressures in her abdominal canister. Further PF strengthening is needed. Physical Therapy Plan Frequency and Duration Frequency of Treatment 1x/Week Plan of Care Start Date 08/16/21 Plan of Care End Date 10/29/21 Next Visit Focus/Plan Next Note Type Treatment Note Next Visit Plan Monitor for proper PF contraction (without sub muscles). Therapeutic ex instruction for the PF/LE and trunk muscles with and without EMG biofeedback. Assess: PSLR HEP:, Hip strengthening (flex, ext, AB, AD), core stab. Monitor: Hip ROM ex (IR L>R, ER R>L) Manual: Sacral balancing for R sciatic pain. Kinetic activities and neuromuscular reeducation to improve functional use of the PF in tasks that cause symptoms. Consider home EMG biofeedback or endurance training.
--- NOTE | 2021-09-28 17:14 | PT.OTN ---
Current Diagnoses Sciatica, right side (09/28/21) Muscle weakness (generalized) (09/28/21) Incomplete uterovaginal prolapse (09/28/21) Physical Therapy Treatment Note PT-OP-A Visit Information Start: 08/10/21 18:21 Freq: Status: Active Protocol: Document 09/28/21 09:06 LRN (Rec: 09/28/21 09:47 LRN [id number]) Out-Patient Physical Therapy Visit Information Visit Information Visit Type Treatment Note Visit Start Time 09:06 Visit Stop Time 09:47 Total Visit Minutes 41 Visit Number 5 Evaluation Information Evaluation Date 08/16/21 Precautions Precautions bilateral knee arthritis and pain, R sciatic pain - nightly . PT-OP-B Current Condition Start: 08/10/21 18:21 Freq: Status: Active Protocol: Document 08/16/21 15:24 LRN (Rec: 08/16/21 17:04 LRN [id number]) Current Condition History of Current Condition Onset Date 05/2021 Current Complaints Feels the prolapse with palpation. Hx of UTI's. History of Current Condition In the shower felt something at the base of the vaginal canal. Was told her prolapse was a stage 4. Currently does not feel she has a UTI, but doesn't have normal symptoms of UTI. R Sciatic pain that botheres her daily but now bothers her at night. R Sciatic pain and ms cramps down the RLE from moving (Dec 2021) and too much walking. Prior Treatments and Tests None Future Testing and Treatments Planned August 2021. Developmental History Developmental History Childbirth at age 42 and 30. Both vaginal births. 2nd baby was 9.5 pounds. Treatment Goals Patient/Caregiver Goals Pt goal with therapy is being on estrodial and physical therapy to strengthen PF to be able to use a pessary. 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 Baseline Function- Other Did not feel drop in inner tissues prior to May 2021. Current Functional Impairments (Reported) Functional Limitations- ADL's None. No urinary leakage. Has had recurrent UTI's in the past 5 yrs (3-4/yr). She has no symptoms of UTI, feels tired, SOB, mild increase in voiding. Personal Factors Other Personal Factors That May Effect Bilateral knee knee. Doing Therapy/Recovery remodeling of house. PT-OP-C Subjective Start: 08/10/21 18:21 Freq: Status: Active Protocol: Document 09/28/21 09:06 LRN (Rec: 09/28/21 09:47 LRN [id number]) OP-PT Subjective Patient Comments Patient Comments Forgot appt with Dr. Rios, rescheduled 10/09/21. Sciatic n is better, but laying down at night has R LE anteriorly in all postions and is not able to get a good night sleep . HX of RLE night pain and leg cramping that was worse than now because she can at least shift positions get some relief all night long. PT-OP-I Pelvic Floor Start: 08/10/21 18:21 Freq: Status: Active Protocol: Document 08/16/21 15:24 LRN (Rec: 08/16/21 17:04 LRN [id number]) Pelvic Floor Assessment Urine Pelvic Floor Surgery No Other Leakage Causes Once in a while with sneeze or cough Leaks Per Day 0 Bowel Bowel Movement Frequency Prior to prolapse diagnosis was 1-2x/day, now after taking fiber 3-4x/day [place] Stool Chart Comments Sometimes naga, mostly soft . Pelvic Clock Pelvic Clock 6-9 Hypertonic Pelvic Clock Other Quick Flicks: Weakness of R side. Able to do 7 reps in 10 secs. Long Holds: Able to hold for 10 secs, decrease felt after 5 secs. Substitutes PF contraction with use gluteal and abdominal muscles. R side of lateral wall soft tissue dysfunction of hardened tissues and ridges, possible scarring. Prolapse Cystocele Grade 3 Prolapse Comments Uterus felt at finger tip of a 3 finger reach Perineal Descent Resting Absent Bearing Absent Contraction Ability Voluntary Contraction Moderate Voluntary Relaxation Moderate Manual Muscle Testing Left 3 Manual Muscle Testing Right 2 Manual Muscle Testing Anterior 3 Manual Muscle Testing Posterior 2 Muscle Endurance (Seconds) 5 Number of Quick Contractions In 10 7 Seconds Comments Pelvic Floor Comments Long Hold: 10 secs, but weakens after 5 seconds. PT-OP-J Posture/Palpation/Skin Start: 08/10/21 18:21 Freq: Status: Active Protocol: Document 08/16/21 15:24 LRN (Rec: 08/16/21 17:04 LRN [id number]) Posture Evaluation Position Standing Head/C-Spine Posture Forward Head L-Spine Posture Flattened Knee Posture (L) Genu Valgus,(R) Genu Valgus PT-OP-K Range of Motion Start: 08/10/21 18:21 Freq: Status: Active Protocol: Document 09/28/21 09:06 LRN (Rec: 09/28/21 17:13 LRN [id number]) Hip Goniometric Range of Motion Hip Right Passive Testing Position Supine Straight Leg Raise 90 Left Passive Testing Position Supine Straight Leg Raise 90 Knee Goniometric Range of Motion Knee Right Patient Position Prone Flexion Passive (degrees) 102 Comments Soft tissue tightness limits range. Left Patient Position Prone Flexion Passive (degrees) 90 Comments Soft tissue tightness limits range. PT-OP-M Strength Start: 08/10/21 18:21 Freq: Status: Active Protocol: Document 08/16/21 15:24 LRN (Rec: 08/16/21 17:04 LRN [id number]) Trunk Strength Trunk Manual Muscle Testing Testing Position Supine Core Stabilization Pt demonstrates rotation weakness with manual muscle testing. Hip Strength Hip Manual Muscle Testing Right Flexion (L2) 3+ Fair+ Extension (S1) 3- Fair- Abduction 2 Poor Adduction 4- Good- External Rotation 4 Good Internal Rotation 5 Normal Left Flexion (L2) 3 Fair Extension (S1) 3- Fair- Abduction 3- Fair- Adduction 3 Fair External Rotation 5 Normal Internal Rotation 5 Normal PT-OP-Q Treatments Start: 08/10/21 18:21 Freq: Status: Active Protocol: Document 09/28/21 09:06 LRN (Rec: 09/28/21 09:47 LRN [id number]) Therapeutic Exercises Supine Exercises Hip PROM Supine Exercise Name PSLR, Hip ER & IR Side bilateral Comments ROM taken Hamstring/LE neural Supine Exercise Name Hamstring/LE neural Side left Reps/Minutes 5' PF contraction Supine Exercise Name PF contraction without substitute ms. Reps/Minutes 8' Comments Pt needed phys & v cuing for isolation of PF. Piriformis stretch Supine Exercise Name Piriformis stretch (L>R), knee to opp shoulder Side left Reps/Minutes 2' Comments Cuing/training for positioning needed Lateral Hip stretch Supine Exercise Name Lateral Hip stretch (L>R) Side left Reps/Minutes 2' Comments Cuing/training for positioning needed Hip ER stretch Supine Exercise Name Fig 4 stretch (R>L) Side bilateral Reps/Minutes 2' Comments Extra time for training positioning Standing Exercises Hip Ext/PF/TA/Breath Standing Exercise Name Hip Ext/PF/TA/Breath Reps/Minutes 10 quick, Long holds of 2 marches each LE Comments extra time to coordinate all components of ex. Hip AB/PF/TA/Breath Standing Exercise Name Hip AB/PF/TA/Breath Reps/Minutes 10 quick, Long holds of 2 marches each LE Comments extra time to coordinate all components of ex. Marching/PF/TA/breath Standing Exercise Name Marching/PF/TA/breath Side bilateral Reps/Minutes 10 quick, Long holds of 2 marches each LE Comments extra time to coordinate all components of ex. Manual Therapy Treatment Soft Tissue Mobilization R Quad Body Location R Quad Mobilization Type Strumming Intensity/Depth Moderate Body Position Supine w/leg on bolster PT-OP-T Assessment and Plan Start: 08/10/21 18:21 Freq: Status: Active Protocol: Document 09/28/21 09:06 LRN (Rec: 09/28/21 09:47 LRN [id number]) Physical Therapy Assessment Goals Three Impairment Decreased PF strength Impairment PF strength 3/5 Short Term Goal (STG) Pt will be educated in how to have bowel movements with the least amount of intra- abdominal pressure possible. (08/21/21: Pt I/S in use of breath and squatty potty for reducing need of intra- abdominal pressure for having a BM). STG Duration 09/14/21 (08/21/21: MET GOAL) Gas Regulator Repairer Goal (LTG) Increase PF muscle strength grade 4-5/5 with endurance of 10 secs in order for pt to be fit for pessary. LTG Duration 10/29/21 Two Impairment Poor coordination of PF contractions Impairment Uses substitute muscles to get a PF contraction. Short Term Goal (STG) Pt will be able to manage changes in intraabdominal pressure with appropriate PF muscle activation (breathing, transfers, lifting, reaching). STG Duration 09/14/21 (08/30/21: MET GOAL) Long-Term Goal (LTG) Pt will be able to perform a PF contraction without use of substitute muscles. (09/20/21: Pt required 1x v. cuing to perform PF contraction without substitute muscles) LTG Duration 10/29/21 (09/28/21: MET GOAL) One Impairment Lacks appropriate self care HEP Short Term Goal (STG) Pt will be educated in proper body mechanics for daily activities and transfers. STG Duration 09/07/21 (08/30/21: MET GOAL) Long-Term Goal (LTG) Pt will be independent in a self care HEP of PF strengthening and hip/LB stretches. (08/21/21: HEP issued: hip ER /IR stretches) (09/20/21: HEP: Clamshell) (09/28/21: HEP: I/S pt in standing hip flex-may, hip AB & ext w/PF quick flicks 10, Long holds 10 secs) LTG Duration 10/29/21 (09/28/21: Progressed ) Progress Towards Goals Progress Comments LTG #2 MET with pt able to do an isoloated PF contraction from substitute ms. Assessment Summary Assessment With standing hip ex's, pt had low tolerance to AB due to onset R sciatic pain during PF long holds. Pt appears to have normal & symmetrical PSLR mobility, Quad tightness was note more in L than R side, although pain is in R quad/ anterior lower leg at nighttime; therefore symptoms may be lumbar (L2-4) neural or SIJ related. Physical Therapy Plan Frequency and Duration Frequency of Treatment 1x/Week Plan of Care Start Date 08/16/21 Plan of Care End Date 10/29/21 Next Visit Focus/Plan Next Note Type Treatment Note Next Visit Plan Therapeutic ex instruction for the PF/LE and trunk muscles with and without EMG biofeedback. Assess response to added hip strengthening & assess R quad/ lower leg nighttime pain - SIJ vs L/S. HEP:, Hip strengthening (flex, ext, AB, AD), core stab. Manual: Sacral balancing for R sciatic pain. Monitor: Hip ROM ex (IR L>R, ER R>L) Kinetic activities and neuromuscular reeducation to improve functional use of the PF in tasks that cause symptoms. Consider home EMG biofeedback or endurance training.
--- NOTE | 2022-01-03 18:18 | PT.OPDS ---
Current Diagnoses Sciatica, right side (09/28/21) Muscle weakness (generalized) (09/28/21) Incomplete uterovaginal prolapse (09/28/21) Visit Care Team Role Provider Type Meghan Monique PA-C Family Provider Non-Staff Primary Care Provider Specialty: Medical Address: [address] [place] [address], [id number] Email: Behzad Rios MD Attending Provider Physician Referring Provider Specialty: DREDGING INSPECTOR Address: [address] [place] [address], [address], [place], [address] Email: [email or web address] Visit Number Visit Number 5 Discharge Summary PT-OP-B Current Condition Start: 08/10/21 18:21 Freq: Status: Active Protocol: Document 08/16/21 15:24 LRN (Rec: 08/16/21 17:04 LRN [id number]) Current Condition History of Current Condition Onset Date 05/2021 Current Complaints Feels the prolapse with palpation. Hx of UTI's. History of Current Condition In the shower felt something at the base of the vaginal canal. Was told her prolapse was a stage 4. Currently does not feel she has a UTI, but doesn't have normal symptoms of UTI. R Sciatic pain that botheres her daily but now bothers her at night. R Sciatic pain and ms cramps down the RLE from moving (Dec 2021) and too much walking. Prior Treatments and Tests None Future Testing and Treatments Planned August 2021. Developmental History Developmental History Childbirth at age 42 and 30. Both vaginal births. 2nd baby was 9.5 pounds. Treatment Goals Patient/Caregiver Goals Pt goal with therapy is being on estrodial and physical therapy to strengthen PF to be able to use a pessary. 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 Baseline Function- Other Did not feel drop in inner tissues prior to May 2021. Current Functional Impairments (Reported) Functional Limitations- ADL's None. No urinary leakage. Has had recurrent UTI's in the past 5 yrs (3-4/yr). She has no symptoms of UTI, feels tired, SOB, mild increase in voiding. Personal Factors Other Personal Factors That May Effect Bilateral knee knee. Doing Therapy/Recovery remodeling of house. PT-OP-C Subjective Start: 08/10/21 18:21 Freq: Status: Active Protocol: Document 09/28/21 09:06 LRN (Rec: 09/28/21 09:47 LRN [id number]) OP-PT Subjective Patient Comments Patient Comments Forgot appt with Dr. Rios, rescheduled 10/09/21. Sciatic n is better, but laying down at night has R LE anteriorly in all postions and is not able to get a good night sleep . HX of RLE night pain and leg cramping that was worse than now because she can at least shift positions get some relief all night long. PT-OP-I Pelvic Floor Start: 08/10/21 18:21 Freq: Status: Active Protocol: Document 08/16/21 15:24 LRN (Rec: 08/16/21 17:04 LRN [id number]) Pelvic Floor Assessment Urine Pelvic Floor Surgery No Other Leakage Causes Once in a while with sneeze or cough Leaks Per Day 0 Bowel Bowel Movement Frequency Prior to prolapse diagnosis was 1-2x/day, now after taking fiber 3-4x/day Cooter Stool Chart Comments Sometimes naga, mostly soft . Pelvic Clock Pelvic Clock 6-9 Hypertonic Pelvic Clock Other Quick Flicks: Weakness of R side. Able to do 7 reps in 10 secs. Long Holds: Able to hold for 10 secs, decrease felt after 5 secs. Substitutes PF contraction with use gluteal and abdominal muscles. R side of lateral wall soft tissue dysfunction of hardened tissues and ridges, possible scarring. Prolapse Cystocele Grade 3 Prolapse Comments Uterus felt at finger tip of a 3 finger reach Perineal Descent Resting Absent Bearing Absent Contraction Ability Voluntary Contraction Moderate Voluntary Relaxation Moderate Manual Muscle Testing Left 3 Manual Muscle Testing Right 2 Manual Muscle Testing Anterior 3 Manual Muscle Testing Posterior 2 Muscle Endurance (Seconds) 5 Number of Quick Contractions In 10 7 Seconds Comments Pelvic Floor Comments Long Hold: 10 secs, but weakens after 5 seconds. PT-OP-J Posture/Palpation/Skin Start: 08/10/21 18:21 Freq: Status: Active Protocol: Document 08/16/21 15:24 LRN (Rec: 08/16/21 17:04 LRN [id number]) Posture Evaluation Position Standing Head/C-Spine Posture Forward Head L-Spine Posture Flattened Knee Posture (L) Genu Valgus,(R) Genu Valgus PT-OP-K Range of Motion Start: 08/10/21 18:21 Freq: Status: Active Protocol: Document 09/28/21 09:06 LRN (Rec: 09/28/21 17:13 LRN [id number]) Hip Goniometric Range of Motion Hip Right Passive Testing Position Supine Straight Leg Raise 90 Left Passive Testing Position Supine Straight Leg Raise 90 Knee Goniometric Range of Motion Knee Right Patient Position Prone Flexion Passive (degrees) 102 Comments Soft tissue tightness limits range. Left Patient Position Prone Flexion Passive (degrees) 90 Comments Soft tissue tightness limits range. PT-OP-M Strength Start: 08/10/21 18:21 Freq: Status: Active Protocol: Document 08/16/21 15:24 LRN (Rec: 08/16/21 17:04 LRN [id number]) Trunk Strength Trunk Manual Muscle Testing Testing Position Supine Core Stabilization Pt demonstrates rotation weakness with manual muscle testing. Hip Strength Hip Manual Muscle Testing Right Flexion (L2) 3+ Fair+ Extension (S1) 3- Fair- Abduction 2 Poor Adduction 4- Good- External Rotation 4 Good Internal Rotation 5 Normal Left Flexion (L2) 3 Fair Extension (S1) 3- Fair- Abduction 3- Fair- Adduction 3 Fair External Rotation 5 Normal Internal Rotation 5 Normal PT-OP-T Assessment and Plan Start: 08/10/21 18:21 Freq: Status: Active Protocol: Document 01/03/22 18:11 LRN (Rec: 01/03/22 18:18 LRN [id number]) Physical Therapy Assessment Goals Three Impairment Decreased PF strength Impairment PF strength 3/5 Short Term Goal (STG) Pt will be educated in how to have bowel movements with the least amount of intra- abdominal pressure possible. (08/21/21: Pt I/S in use of breath and squatty potty for reducing need of intra- abdominal pressure for having a BM). STG Duration 09/14/21 (08/21/21: MET GOAL) Development Executive Goal (LTG) Increase PF muscle strength grade 4-5/5 with endurance of 10 secs in order for pt to be fit for pessary. LTG Duration 10/29/21 (01/03/22: Pt unavailable for final assessment) Two Impairment Poor coordination of PF contractions Impairment Uses substitute muscles to get a PF contraction. Short Term Goal (STG) Pt will be able to manage changes in intraabdominal pressure with appropriate PF muscle activation (breathing, transfers, lifting, reaching). STG Duration 09/14/21 (08/30/21: MET GOAL) Residential Goal (LTG) Pt will be able to perform a PF contraction without use of substitute muscles. (09/20/21: Pt required 1x v. cuing to perform PF contraction without substitute muscles) LTG Duration 10/29/21 (09/28/21: MET GOAL) One Impairment Lacks appropriate self care HEP Short Term Goal (STG) Pt will be educated in proper body mechanics for daily activities and transfers. STG Duration 09/07/21 (08/30/21: MET GOAL) Development Executive Goal (LTG) Pt will be independent in a self care HEP of PF strengthening and hip/LB stretches. (08/21/21: HEP issued: hip ER /IR stretches) (09/20/21: HEP: Clamshell) (09/28/21: HEP: I/S pt in standing hip flex-may, hip AB & ext w/PF quick flicks 10, Long holds 10 secs) LTG Duration 10/29/21 (09/28/21: Progressed ) Assessment Summary Assessment Pt was seen for an initial evaluation and 4 treatment visits with her last attended visit on 09/28/21. The pt was seeking to start PT for rehab in Nov for another condition. Pt met most of her goals and is being discharged from therapy for PT for another condition. Physical Therapy Plan Discharge Physical Therapy Discharge Reasons No Longer Attending PT Discharge Comments Thank you for your referral.
== END 2022-01-04 16:29 | disposition home or self-care (01) ==
LOC: PHYS 09:00
PROVIDERS: Family Provider Physician Assistant; PCP Physician Assistant; Referring Provider Obstetrics & Gynecology; Visit Provider Obstetrics & Gynecology
DX: N81.2 Incomplete uterovaginal prolapse (principal); M62.81 Muscle weakness (generalized); M54.31 Sciatica, right side
CPT/HCPCS: 97110; 97140; 97162; 97535

== ENCOUNTER → 2021-10-29 09:22 | Outpatient (CLI) | payer MEDICARE, SELFPAY ==
--- NOTE | 2021-10-29 | DI.ECHO.S_ITS ---
[facility]---------+ [facility] +---------+ : : [address] : [place] : : : : [phone] : : : : Phone: [phone]---------+ Echocardiogram Report + + :Name: TRISTIAN JACKMAN Study Date: 10/29/2021 Height: 69 in : :[facility] ReadingLocation: Weight: 210 lb : : Gender: Female BSA: 2.1 m2 : :: 1955 Age: 66 yrs BP: 130/92 mmHg: :Reason For Study: CARDIAC MURMUR : :Ordering Physician: GEOVANI CRAWLEY : :JEANNA Performed By: Shira Olivares : :Referring: GEOVANI CRAWLEY : + + Interpretation Summary Left ventricular ejection fraction is estimated to be 55%. Mild inferior/inferolateral hypokinesis The right ventricle is borderline dilated. There is mild mitral regurgitation. There is mild tricuspid regurgitation. Procedure: A two-dimensional transthoracic echocardiogram with color flow and Doppler was performed. The study quality was technically adequate. There is no prior echocardiogram noted for this patient. The patient was in sinus rhythm with heart rates between 55-60 bpm during the exam. Left Ventricle: The left ventricle is normal in size. There is mild concentric left ventricular hypertrophy. Left ventricular ejection fraction is estimated to be 55%. Mild inferior/inferolateral hypokinesis. Right Ventricle: The right ventricle is borderline dilated. The right ventricular systolic function is normal. Atria: The left atrial size is normal. Right atrial size is normal. There is no Doppler evidence for an interatrial shunt. Mitral Valve: The mitral valve is normal in structure and function. There is mild mitral regurgitation. Aortic Valve: The aortic valve is trileaflet. The aortic valve opens well. There is no aortic valve stenosis. No aortic regurgitation is present. Tricuspid Valve: The tricuspid valve is normal in structure and function. There is mild tricuspid regurgitation. Pulmonic Valve: The pulmonic valve leaflets are thin and pliable; valve motion is normal. There is mild pulmonic regurgitation. Great Vessels: The aortic root is normal size. The dimensions of the ascending aorta are normal. The IVC is of normal diameter and collapses greater than 50% with a sniff. This suggests a low right atrial pressure of 3 mm Hg. Pericardium/ Pleura There is no pericardial effusion. There is no pleural effusion. MMode/2D Measurements & Calculations LVIDd: 4.5 cm LVOT diam: 2.1 cm LVIDs: 3.1 cm Ao root diam: 3.1 cm FS: 30.8 % asc Aorta Diam: 3.8 cm EPSS: 0.54 cm Ao Arch Diam (Prox Trans): 3.5 cm IVSd: 1.1 cm LVPWd: 1.0 cm LV rodarte. diameter/BSA (cm/m^2): 2.1 LV sys. diameter/BSA (cm/m^2): 1.5 LA A2 area: 24.4 cm2 RA long axis: 5.0 cm LA A4 area: 16.3 cm2 RA area: 14.9 cm2 LA length (vol): 5.2 cm RA vol: 38.0 ml LA vol: 65.4 ml RA : 18.0 ml/m2 LA vol index: 31.0 ml/m2 IVC diam: 0.83 cm RVD1 (basal): 4.1 cm RVD2 (mid): 3.5 cm TAPSE: 2.0 cm Doppler Measurements & Calculations Ao V2 max: 169.8 cm/sec LVOT Max Doug: 93.7 cm/sec Ao V2 mean: 113.3 cm/sec LV V1 max P.5 mmHg Ao max P.5 mmHg LV V1 VTI: 23.1 cm Ao mean P.7 mmHg ISAIAH(I,D): 2.2 cm2 Ao V2 VTI: 34.9 cm ISAIAH(V,D): 1.9 cm2 sev ratio: 0.66 ISAIAH indexed to BSA (cm^2/m^2): 1.1 MV E max doug: 72.1 cm/sec PA V2 max: 89.0 cm/sec MV A max doug: 104.7 cm/sec PA V2 mean: 60.1 cm/sec MV E/A: 0.69 PA mean P.7 mmHg Med Peak E' Doug: 5.6 cm/sec PA pr(Accel): 25.9 mmHg E/E' med: 12.9 Lat Peak E' Doug: 7.8 cm/sec E/E' lat: 9.2 E/e' average: 11.0 MV dec time: 0.27 sec SV(LVOT): 77.9 ml Reading Physician:02:02 PM
== END ==
PROVIDERS: Family Provider Physician Assistant; PCP Family Medicine; Referring Provider Family Medicine; Visit Provider Family Medicine
DX: I08.1 Rheumatic disorders of both mitral and tricuspid valves (principal); R01.1 Cardiac murmur, unspecified
CPT/HCPCS: 93306

== ENCOUNTER → 2022-01-03 08:57 | Outpatient (CLI) | payer MEDICARE, SELFPAY ==
[2022-01-03 10:33] LABS: Add Manual Diff / Slide Review NO; Basophils Absolute Auto 100 /uL (0-100); Basophils Percent Auto 1.3 % (0-2); Eosinophils Absolute Auto 200 /uL (0-450); Eosinophils Percent Auto 4.5 % (2-4); Hematocrit 38.7 % (36-46); Hemoglobin 13.1 g/dL (12.0-16.0); Lymphocytes Absolute Auto 900 /uL (1100-4500); Lymphocytes Percent Auto 17.1 % (25-40); Mean Corpuscular HGB Conc 33.8 % (30-36); Mean Corpuscular Hemoglobin 30.7 PG (26-34); Mean Corpuscular Volume 90.8 fL (80-100); Monocytes Absolute Auto 600 /uL (0-900); Monocytes Percent Auto 10.9 % (3-14); Neutrophils Absolute Auto 3300 /uL (1500-7000); Neutrophils Percent Auto 66.2 % (50-75); Platelet Count 287 X10^3/uL (150-400); Red Blood Cell Count 4.26 X10^6/uL (4.0-5.2); Red Cell Distribution Width 12.5 % (11.6-14.8); White Blood Cell Count 5.1 X10^3/uL (4.5-11.0)
[2022-01-03 10:49] LABS: Hemoglobin A1C% w Est Avg Glu 5.5 % (4.0-6.0)
[2022-01-03 10:58] LABS: Alanine Aminotransferase 15 IU/L (<35); Albumin 4.3 g/dL (3.5-5.0); Albumin Globulin Ratio 1.2 (1.0-2.8); Alkaline Phosphatase 85 U/L (38-126); Aspartate Aminotransferase 28 IU/L (14-36); Bilirubin Total 0.6 mg/dL (0.2-1.3); Blood Urea Nitrogen 12 mg/dL (7-17); Calcium 9.1 mg/dL (8.4-10.2); Carbon Dioxide 25 mmol/L (22-32); Chloride 103 mmol/L (98-107); Cholesterol 164 mg/dL (140-199); Estimated Glomerular Filt Rate > 60 mL/min (>60); Globulin 3.5 g/dL (1.7-4.1); Glucose 103 mg/dL (80-110); HDL Cholesterol 55 mg/dL (40-60); HEMOLYSIS < 15 (0-50); LDL Cholesterol Calculated 73 mg/dL (<100); Potassium 4.1 mmol/L (3.4-5.1); Sodium 139 mmol/L (137-145); Total Protein 7.8 g/dL (6.3-8.2); Triglycerides 178 mg/dL (35-150)
[2022-01-03 11:12] LABS: Vitamin D 25 Hydroxy (D3) 34.6 ng/mL (30.0-100.0)
[2022-01-03 11:30] LABS: TSH w/ Reflex to FT4 2.05 uIU/mL (0.47-4.68)
[2022-01-03 11:43] LABS: Vitamin B12 612 pg/mL (239-931)
== END ==
PROVIDERS: Family Provider Family Medicine; PCP Family Medicine; Referring Provider Family Medicine; Visit Provider Family Medicine
DX: E78.5 Hyperlipidemia, unspecified (principal); Z13.228 Encounter for screening for other metabolic disorders; R73.01 Impaired fasting glucose; R53.83 Other fatigue; Z13.29 Encounter for screening for other suspected endocrine disorder; Z13.0 Encounter for screening for diseases of the blood and blood-forming organs and certain disorders involving the immune mechanism; Z13.21 Encounter for screening for nutritional disorder
CPT/HCPCS: 36415; 80053; 80061; 82306; 82607; 83036; 84443; 85025

== ENCOUNTER 2022-04-17 13:45 | Outpatient (RCR) | payer MEDICARE, SELFPAY ==
--- NOTE | 2021-12-10 17:52 | PT.OIE ---
Current Diagnoses Pain in right knee (12/10/21) Pain in left knee (12/10/21) Lumbago with sciatica, right side (12/10/21) Abnormal posture (12/10/21) Weakness (12/10/21) Past Medical History (Last Reviewed 10/31/21 @ 13:33 by Cesar Day MD) Chicken pox (~1966) Depression (~1998) Hyperlipidemia Measles (~1966) Mumps (~1966) Sleep apnea (~2019) Past Surgical History (Last Reviewed 10/31/21 @ 13:33 by Cesar Day MD) Anesthesia History of breast implant removal (~05/2020) History of cataract removal with insertion of prosthetic lens (~2019) Tubal (~1987) Visit Care Team Role Provider Type JEANNA Villatoro Attending Provider Physician Family Provider Primary Care Provider Referring Provider Specialty: Nursing Address: [address] [place] [address], [facility] Email: Physical Therapy Initial Evaluation PT-OP-A Visit Information Start: 12/06/21 17:49 Freq: Status: Active Protocol: Document 12/10/21 12:12 [facility] (Rec: 12/10/21 13:49 [facility] [id number]) Out-Patient Physical Therapy Visit Information Visit Information Visit Type Initial Evaluation Visit Start Time 13:03 Visit Stop Time 13:49 Total Visit Minutes 46 Visit Number 1 Number of CYBER SECURITY CONSULTANT Visits 0 PT-OP-B Current Condition Start: 12/06/21 17:49 Freq: Status: Active Protocol: Document 12/10/21 12:12 [facility] (Rec: 12/10/21 13:49 [facility] [id number]) Current Condition History of Current Condition Current Complaints B knee pain & sciatic pain R buttocks and down leg History of Current Condition Pt reports B knee pain for years without injuries but arthritis and pt notices she is knock-kneed. Notices her feet are off from that. Pt reports sciatic pain has been going on about 10 months. It was around when [facility] moved here . Ant lat thigh pain started w /move and she had a cramp in lat quad region after. Pt reprots buttocks and leg pain that is worst at night. She has to roll back and forth at night. She is getting a sleep study in Dec. Pt erports she has to take ibuprfoen often d/ t pain more so the last 6 months or so. Can only be active for so long and then has to put her feet up. 1 year ago, she had a home gym and was working with a personal fitness trainer 2x/ week. This last year, she feels like she is falling apart. She has a lot going on, so she hasn't done as much exercise and self care. Reports she has recently irritated her L shoulder and things she lifted something sideways that was too heavy and now can;t abd or IR and it pops occ. Prior Treatments and Tests L knee xray: Bones: No fractures or dislocations. Moderate narrowing of the lateral compartment joint space with prominent osteophytosis and sclerosis of the lateral tibial plateau. The medial and patellofemoral joint spaces are maintained but demonstrate periarticular osteophytosis. Soft tissues: Small joint effusion. No suspicious soft tissue calcifications. 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 no other treatment tried besides one injection in her knee over 5 years ago that didn't help much. Treatment Goals Patient/Caregiver Goals Get to where she doesn't have LB/hip pain, get her legs stronger so she can be more stable w/knees, be able to increase stamina PT-OP-C Subjective Start: 12/06/21 17:49 Freq: Status: Active Protocol: Document 12/10/21 12:12 [facility] (Rec: 12/10/21 13:49 [facility] [id number]) Patient Questionnaires Oswestry Low Back Index Oswestry Score 19/50 OP-PT Pain Assessment Location B knees Pain Location Details ant knee Scale Used 8/10 Description Aching Description- Other pop occ (get stuk and pop- sharp) Frequency Intermittent Pain Aggravating Factors Activity,Walking,Stair Climbing Other Pain Aggravating Factors get up from sit after longer sit, up/down hill Pain Alleviating Factors Medication,Inactivity, Elevation R buttocks Pain Location Details R lower lumbar and SI & buttocks& post lat leg into calf Scale Used 8/10 Description Throbbing,With Movement Description- Other low grade constant and gets worse Frequency Constant Radiating Location pain radiates down R side no numbness and tinggling; numbness on L toes Pain Aggravating Factors Activity,Sitting Pain Alleviating Factors Cold,Medication,Inactivity PT-OP-G Mobility & Gait Start: 12/06/21 17:49 Freq: Status: Active Protocol: Document 12/10/21 12:12 [facility] (Rec: 12/10/21 13:49 [facility] [id number]) OP Gait Assessment Comments Gait Comments no UE motion, dec trunk motion , dec push off B, lat lean b PT-OP-J Posture/Palpation/Skin Start: 12/06/21 17:49 Freq: Status: Active Protocol: Document 12/10/21 12:12 [facility] (Rec: 12/10/21 13:49 [facility] [id number]) Posture Evaluation [facility] Postural Classification System [facility] Postural Classifications Posterior/Anterior Vertebral Compression Test 1 Lumbar Protective Mechanism Left AP 0 Lumbar Protective Mechanism Right AP 0 Lumbar Protective Mechanism Left PA 1 Lumbar Protective Mechanism Right PA 3 Comments Posture Comments SLS 10 sec L, 9 sec R w/ excessive UE motion;B kne evalgus, forefoot varus, rearfoot valgus; min R greater troch higher, R iliac crest higher PT-OP-K Range of Motion Start: 12/06/21 17:49 Freq: Status: Active Protocol: Document 12/10/21 12:12 [facility] (Rec: 12/10/21 13:49 [facility] [id number]) Lumbar Spine Range of Motion Lumbar Spine Active Degrees Rotation Left 48 Rotation Right 45 Comments 1 in above patella w/lumbar only, 2 in above ankle flex, ext about 80%; SB equal B good ROM Knee Goniometric Range of Motion Knee Right Flexion Active (degrees) 90 Extension Active (degrees) 10 Left Flexion Active (degrees) 113 Extension Active (degrees) 10 PT-OP-L Special Tests Start: 12/06/21 17:49 Freq: Status: Active Protocol: Document 12/10/21 12:12 [facility] (Rec: 12/10/21 13:49 [facility] [id number]) Special Tests Lumbar Spine Special Tests Chay's Test Results neg B Milind Test Results quads tight B Straight Leg Raise Test Results 91 L; 68 R Slump Test Results tightness R PT-OP-M Strength Start: 12/06/21 17:49 Freq: Status: Active Protocol: Document 12/10/21 12:12 [facility] (Rec: 12/10/21 13:49 [facility] [id number]) Hip Strength Hip Manual Muscle Testing Right Flexion (L2) 4- Good- Extension (S1) 3- Fair- Abduction 3 Fair Adduction 4+ Good+ External Rotation 3+ Fair+ Internal Rotation 4- Good- Comments crepitis B w/ER Left Flexion (L2) 4- Good- Extension (S1) 3+ Fair+ Abduction 3 Fair Adduction 4 Good External Rotation 3+ Fair+ Internal Rotation 4- Good- Knee Strength Knee Manual Muscle Testing Right Flexion (S2) 4+ Good+ Extension (L3) 4 Good Left Flexion (S2) 4+ Good+ Extension (L3) 4 Good Comments significant crepetitis w/ext B Ankle/Foot Strength Ankle and Foot Manual Muscle Testing Right Dorsiflexion (L4) 4 Good Plantarflexion (S1) 4- Good- Comments 13 heel raises Left Dorsiflexion (L4) 4 Good Plantarflexion (S1) 4- Good- Comments crepitis B knees w/DF: 13 heel raises PT-OP-T Assessment and Plan Start: 12/06/21 17:49 Freq: Status: Active Protocol: Document 12/10/21 12:12 [facility] (Rec: 12/10/21 13:49 [facility] [id number]) Physical Therapy Assessment Rehab Potential Rehabilitation Potential Good Evaluation Complexity Number of Personal Factors/Comorbidities 3 or More Number of Body Systems Impaired 4 or More Clinical Presentation at Evaluation Evolving Impairments Impairments Activity Tolerance,Balance, Functional Activities, Functional Mobility,Gait,Pain, Posture,ROM,Soft Tissue Mobility,Strength,Transfers Goals activity tolerance Short Term Goal (STG) Pt will be able to comfortably do sit to stand after sitting extended w/o inc pain STG Duration 02/09 Group Home Goal (LTG) Pt will be able to stand as needed and move around house without requiring mult rest breaks in day. LTG Duration 03/11 strength Short Term Goal (STG) Pt will be indep w/HEP for strength, ROM, balance and pain relief STG Duration 02/08 Automobile Club Travel Counselor Goal (LTG) Pt will score at least 4+/5 on MMT LEs and at least 3/5 on LPM in all planes to show improved stability. LTG Duration 03/11 Three Impairment HECTOR 19/50 Short Term Goal (STG) Pt will improve score of HECTOR to no greater than 13/50 to show improved functional ability. STG Duration 01/29 [employer]obile Club Travel Counselor Goal (LTG) Pt will improve score of HECTOR to no greater than 4/50 to show improved functional ability. LTG Duration 03/11 Two Impairment stairs step to Short Term Goal (STG) Pt will be able to go up stairs reciprocally w/o rail w /o inc pain. STG Duration 01/29 Group Home Goal (LTG) Pt will be able to go down stairs reciprocally w/o rail w /o inc pain. LTG Duration 03/11 Assessment Summary Assessment Pt presents w/R hip and SI pain w/radiating symptoms into RLE for the past 10 months startinga fter her move along w/B knee pain that is chronic in nature w/Xrays showing OA. She has been recently limited in her abilityt o be on her feet and active d/t her B knee pain and R hip pain. She shows overall dec core stabiltiy and hip stabilty wchih likely contributes to her back/hip pain along w/knee pain. Her gradual worsening of B knee pain and increasing valgus to B knees likely have created strain to hips and pelvis and may have contributed to the start of her R hip and radiating pain. Pt would benefit from skilled PT to work on dec pain and returning pt back to more activity. Physical Therapy Plan Frequency and Duration Frequency of Treatment 2x/Week Duration of Treatment 3 months Plan of Care Start Date 12/10/21 Plan of Care End Date 03/11/22 Therapeutic Interventions Therapeutic Interventions Aquatic Therapy,Balance Training,Gait Training,Home Exercise Program,Joint Mobilizations,Manual Therapy, Neuromuscular Re-education, Orthotic/Prosthetic Management ,Patient/Caregiver Education, Self-Care/Home Management,Soft Tissue Mobilization,Taping, Therapeutic Activities, Therapeutic Exercises Modalities Cold Pack/Ice Massage,Electric Stimulation,Hot Packs, Traction- Mechanical, Ultrasound Next Visit Focus/Plan Next Note Type Treatment Note Next Visit Plan HEP:piriformis stretch, post pelvic tilts, HS stretch active, bridge, standing sidestep; manual to glutes and hip joint mobility R
--- NOTE | 2021-12-10 17:52 | PT.OPPOC ---
Physical, Occupational & Speech Therapy At [facility] Current Diagnoses Pain in right knee (12/10/21) Pain in left knee (12/10/21) Lumbago with sciatica, right side (12/10/21) Abnormal posture (12/10/21) Weakness (12/10/21) Visit Care Team Role Provider Type JEANNA Villatoro Attending Provider Physician Family Provider Primary Care Provider Referring Provider Specialty: Nursing Address: [address] [place] [address], [id number] Email: Plan Of Care PT-OP-T Assessment and Plan Start: 12/06/21 17:49 Freq: Status: Active Protocol: Document 12/10/21 12:12 [facility] (Rec: 12/10/21 13:49 [facility] [id number]) Physical Therapy Assessment Rehab Potential Rehabilitation Potential Good Evaluation Complexity Number of Personal Factors/Comorbidities 3 or More Number of Body Systems Impaired 4 or More Clinical Presentation at Evaluation Evolving Impairments Impairments Activity Tolerance,Balance, Functional Activities, Functional Mobility,Gait,Pain, Posture,ROM,Soft Tissue Mobility,Strength,Transfers Goals activity tolerance Short Term Goal (STG) Pt will be able to comfortably do sit to stand after sitting extended w/o inc pain STG Duration 02/09 Cinder Crane Operator Goal (LTG) Pt will be able to stand as needed and move around house without requiring mult rest breaks in day. LTG Duration 03/11 strength Short Term Goal (STG) Pt will be indep w/HEP for strength, ROM, balance and pain relief STG Duration 02/08 Cinder Crane Operator Goal (LTG) Pt will score at least 4+/5 on MMT LEs and at least 3/5 on LPM in all planes to show improved stability. LTG Duration 03/11 Three Impairment HECTOR 19/50 Short Term Goal (STG) Pt will improve score of HECTOR to no greater than 13/50 to show improved functional ability. STG Duration 01/29 Cinder Crane Operator Goal (LTG) Pt will improve score of HECTOR to no greater than 4/50 to show improved functional ability. LTG Duration 03/11 Two Impairment stairs step to Short Term Goal (STG) Pt will be able to go up stairs reciprocally w/o rail w /o inc pain. STG Duration 01/29 Retirement Goal (LTG) Pt will be able to go down stairs reciprocally w/o rail w /o inc pain. LTG Duration 03/11 Assessment Summary Assessment Pt presents w/R hip and SI pain w/radiating symptoms into RLE for the past 10 months startinga fter her move along w/B knee pain that is chronic in nature w/Xrays showing OA. She has been recently limited in her abilityt o be on her feet and active d/t her B knee pain and R hip pain. She shows overall dec core stabiltiy and hip stabilty wchih likely contributes to her back/hip pain along w/knee pain. Her gradual worsening of B knee pain and increasing valgus to B knees likely have created strain to hips and pelvis and may have contributed to the start of her R hip and radiating pain. Pt would benefit from skilled PT to work on dec pain and returning pt back to more activity. Physical Therapy Plan Frequency and Duration Frequency of Treatment 2x/Week Duration of Treatment 3 months Plan of Care Start Date 12/10/21 Plan of Care End Date 03/11/22 Therapeutic Interventions Therapeutic Interventions Aquatic Therapy,Balance Training,Gait Training,Home Exercise Program,Joint Mobilizations,Manual Therapy, Neuromuscular Re-education, Orthotic/Prosthetic Management ,Patient/Caregiver Education, Self-Care/Home Management,Soft Tissue Mobilization,Taping, Therapeutic Activities, Therapeutic Exercises Modalities Cold Pack/Ice Massage,Electric Stimulation,Hot Packs, Traction- Mechanical, Ultrasound Next Visit Focus/Plan Next Note Type Treatment Note Next Visit Plan HEP:piriformis stretch, post pelvic tilts, HS stretch active, bridge, standing sidestep; manual to glutes and hip joint mobility R Plan of Care Dates Plan of Care Start Date 12/10/21 Plan of Care End Date 03/11/22 Electronically Signed by: Zamzam Schrader, PT 12/10/21 [id number] If you are in agreement with this Plan of Care, please return a signed and dated copy. I have reviewed this Plan of Care and certify that the skilled therapy services above are required to meet the patient?s needs. Physician Signature Date Printed Name and Credentials Clinical Instructor Signature Printed Name and Credentials
--- NOTE | 2021-12-25 12:00 | PT.OTN ---
Current Diagnoses Pain in right knee (12/28/21) Pain in left knee (12/28/21) Lumbago with sciatica, right side (12/28/21) Abnormal posture (12/28/21) Weakness (12/28/21) Physical Therapy Treatment Note PT-OP-A Visit Information Start: 12/06/21 17:49 Freq: Status: Active Protocol: Document 12/25/21 10:43 NB (Rec: 12/25/21 11:22 NB [id number]) Out-Patient Physical Therapy Visit Information Visit Information Visit Type Treatment Note Visit Start Time 10:37 Visit Stop Time 11:20 Total Visit Minutes 43 Visit Number 2 Number of DAY TRADER Visits 1 PT-OP-B Current Condition Start: 12/06/21 17:49 Freq: Status: Active Protocol: Document 12/10/21 12:12 [facility] (Rec: 12/10/21 13:49 [facility] [id number]) Current Condition History of Current Condition Current Complaints B knee pain & sciatic pain R buttocks and down leg History of Current Condition Pt reports B knee pain for years without injuries but arthritis and pt notices she is knock-kneed. Notices her feet are off from that. Pt reports sciatic pain has been going on about 10 months. It was around when [facility] moved here . Ant lat thigh pain started w /move and she had a cramp in lat quad region after. Pt reprots buttocks and leg pain that is worst at night. She has to roll back and forth at night. She is getting a sleep study in Dec. Pt erports she has to take ibuprfoen often d/ t pain more so the last 6 months or so. Can only be active for so long and then has to put her feet up. 1 year ago, she had a home gym and was working with a physical fitness trainer 2x/ week. This last year, she feels like she is falling apart. She has a lot going on, so she hasn't done as much exercise and self care. Reports she has recently irritated her L shoulder and things she lifted something sideways that was too heavy and now can;t abd or IR and it pops occ. Prior Treatments and Tests L knee xray: Bones: No fractures or dislocations. Moderate narrowing of the lateral compartment joint space with prominent osteophytosis and sclerosis of the lateral tibial plateau. The medial and patellofemoral joint spaces are maintained but demonstrate periarticular osteophytosis. Soft tissues: Small joint effusion. No suspicious soft tissue calcifications. 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 no other treatment tried besides one injection in her knee over 5 years ago that didn't help much. Treatment Goals Patient/Caregiver Goals Get to where she doesn't have LB/hip pain, get her legs stronger so she can be more stable w/knees, be able to increase stamina PT-OP-C Subjective Start: 12/06/21 17:49 Freq: Status: Active Protocol: Document 12/25/21 10:43 [facility] (Rec: 12/25/21 11:22 [facility] [id number]) OP-PT Subjective Patient Comments Patient Comments Pt reports her pain level is different every day. Today is a good day and she hasn't used ibuprofen and had to park far away and had no problem, but Friday she walked around town and her knees were bothering her. She takes ibuprofen most days. PT-OP-G Mobility & Gait Start: 12/06/21 17:49 Freq: Status: Active Protocol: Document 12/10/21 12:12 [facility] (Rec: 12/10/21 13:49 [facility] [id number]) OP Gait Assessment Comments Gait Comments no UE motion, dec trunk motion , dec push off B, lat lean b PT-OP-J Posture/Palpation/Skin Start: 12/06/21 17:49 Freq: Status: Active Protocol: Document 12/10/21 12:12 [facility] (Rec: 12/10/21 13:49 [facility] [id number]) Posture Evaluation [facility] Postural Classification System [facility] Postural Classifications Posterior/Anterior Vertebral Compression Test 1 Lumbar Protective Mechanism Left AP 0 Lumbar Protective Mechanism Right AP 0 Lumbar Protective Mechanism Left PA 1 Lumbar Protective Mechanism Right PA 3 Comments Posture Comments SLS 10 sec L, 9 sec R w/ excessive UE motion;B kne evalgus, forefoot varus, rearfoot valgus; min R greater troch higher, R iliac crest higher PT-OP-K Range of Motion Start: 12/06/21 17:49 Freq: Status: Active Protocol: Document 12/10/21 12:12 [facility] (Rec: 12/10/21 13:49 [facility] [id number]) Lumbar Spine Range of Motion Lumbar Spine Active Degrees Rotation Left 48 Rotation Right 45 Comments 1 in above patella w/lumbar only, 2 in above ankle flex, ext about 80%; SB equal B good ROM Knee Goniometric Range of Motion Knee Right Flexion Active (degrees) 90 Extension Active (degrees) 10 Left Flexion Active (degrees) 113 Extension Active (degrees) 10 PT-OP-L Special Tests Start: 12/06/21 17:49 Freq: Status: Active Protocol: Document 12/10/21 12:12 [facility] (Rec: 12/10/21 13:49 [facility] [id number]) Special Tests Lumbar Spine Special Tests Chay's Test Results neg B Milind Test Results quads tight B Straight Leg Raise Test Results 91 L; 68 R Slump Test Results tightness R PT-OP-M Strength Start: 12/06/21 17:49 Freq: Status: Active Protocol: Document 12/10/21 12:12 [facility] (Rec: 12/10/21 13:49 [facility] [id number]) Hip Strength Hip Manual Muscle Testing Right Flexion (L2) 4- Good- Extension (S1) 3- Fair- Abduction 3 Fair Adduction 4+ Good+ External Rotation 3+ Fair+ Internal Rotation 4- Good- Comments crepitis B w/ER Left Flexion (L2) 4- Good- Extension (S1) 3+ Fair+ Abduction 3 Fair Adduction 4 Good External Rotation 3+ Fair+ Internal Rotation 4- Good- Knee Strength Knee Manual Muscle Testing Right Flexion (S2) 4+ Good+ Extension (L3) 4 Good Left Flexion (S2) 4+ Good+ Extension (L3) 4 Good Comments significant crepetitis w/ext B Ankle/Foot Strength Ankle and Foot Manual Muscle Testing Right Dorsiflexion (L4) 4 Good Plantarflexion (S1) 4- Good- Comments 13 heel raises Left Dorsiflexion (L4) 4 Good Plantarflexion (S1) 4- Good- Comments crepitis B knees w/DF: 13 heel raises PT-OP-Q Treatments Start: 12/06/21 17:49 Freq: Status: Active Protocol: Document 12/25/21 10:43 NB (Rec: 12/25/21 11:22 [facility] [id number]) Therapeutic Exercises Supine Exercises Bridging Supine Exercise Name w/ ball squeeze - HEP Equipment Used blue ball Reps/Minutes 10 x 3-5 SH Comments cues for breathholding IT Band stretch Supine Exercise Name HEP Side bilateral Equipment Used w/ strap Reps/Minutes 2 x 45s HS Stretch Supine Exercise Name HEP Side bilateral Equipment Used w/ strap Reps/Minutes 2 x 45s Pififormis stretch Supine Exercise Name HEP Side bilateral Equipment Used w/strap Reps/Minutes 2 x 45s PPT Supine Exercise Name HEP Reps/Minutes 10 x 5SH hold Comments w/TrA focus, no breathholding Self-Care/Home Management Treatment Education Patient Education Home Exercise Program,Posture Other Education Discussed TrA/Diaphragm/PF relationship for core stability and importance of not holding breath. Added to HEP: PPT, Bridge w/ adductor squeeze, Piriformis/ HS/ITB stretches w/ strap - HO given. PT-OP-T Assessment and Plan Start: 12/06/21 17:49 Freq: Status: Active Protocol: Document 12/25/21 10:43 NB (Rec: 12/25/21 11:22 [facility] [id number]) Physical Therapy Assessment Goals activity tolerance Short Term Goal (STG) Pt will be able to comfortably do sit to stand after sitting extended w/o inc pain STG Duration 02/09 Usp Goal (LTG) Pt will be able to stand as needed and move around house without requiring mult rest breaks in day. LTG Duration 03/11 strength Short Term Goal (STG) Pt will be indep w/HEP for strength, ROM, balance and pain relief STG Duration 02/08 Information Security Consultant Goal (LTG) Pt will score at least 4+/5 on MMT LEs and at least 3/5 on LPM in all planes to show improved stability. LTG Duration 03/11 Three Impairment HECTOR 19/50 Impairment PF strength 3/5 Short Term Goal (STG) Pt will improve score of HECTOR to no greater than 13/50 to show improved functional ability. STG Duration 01/29 Usp Goal (LTG) Pt will improve score of HECTOR to no greater than 4/50 to show improved functional ability. LTG Duration 03/11 Two Impairment stairs step to Impairment Uses substitute muscles to get a PF contraction. Short Term Goal (STG) Pt will be able to go up stairs reciprocally w/o rail w /o inc pain. STG Duration 01/29 Information Security Consultant Goal (LTG) Pt will be able to go down stairs reciprocally w/o rail w /o inc pain. LTG Duration 03/11 Assessment Summary Assessment Treatment focus today on developing HEP for improving core and hip stability. Pt demonstrates excessive lumbar hyperextension and requires cues for breathholding - self- awareness improves with cues and repetition by end of treatment session. Added to HEP: PPT, Bridge w/ adductor squeeze, Piriformis/HS/ITB stretches w/ strap - HO given. Pt otherwise demonstrates good executions of exercises. Pt will benefit from continued skilled therapeutic intervention. Physical Therapy Plan Frequency and Duration Frequency of Treatment 2x/Week Plan of Care Start Date 12/10/21 Plan of Care End Date 03/11/22 Therapeutic Interventions Therapeutic Interventions Aquatic Therapy,Balance Training,Gait Training,Home Exercise Program,Joint Mobilizations,Manual Therapy, Neuromuscular Re-education, Orthotic/Prosthetic Management ,Patient/Caregiver Education, Self-Care/Home Management,Soft Tissue Mobilization,Taping, Therapeutic Activities, Therapeutic Exercises Modalities Cold Pack/Ice Massage,Electric Stimulation,Hot Packs, Traction- Mechanical, Ultrasound Next Visit Focus/Plan Next Note Type Treatment Note Next Visit Plan HEP:piriformis stretch, post pelvic tilts, HS stretch active, bridge, standing sidestep; manual to glutes and hip joint mobility R
--- NOTE | 2021-12-28 10:47 | PT.OTN ---
Current Diagnoses Pain in right knee (12/28/21) Pain in left knee (12/28/21) Lumbago with sciatica, right side (12/28/21) Abnormal posture (12/28/21) Weakness (12/28/21) Physical Therapy Treatment Note PT-OP-A Visit Information Start: 12/06/21 17:49 Freq: Status: Active Protocol: Document 12/28/21 10:09 NB (Rec: 12/28/21 10:47 NB [id number]) Out-Patient Physical Therapy Visit Information Visit Information Visit Type Treatment Note Visit Start Time 10:04 Visit Stop Time 10:42 Total Visit Minutes 38 Visit Number 3 Number of DIRECTOR OF STAFF DEVELOPMENT Visits 2 PT-OP-B Current Condition Start: 12/06/21 17:49 Freq: Status: Active Protocol: Document 12/10/21 12:12 [facility] (Rec: 12/10/21 13:49 [facility] [id number]) Current Condition History of Current Condition Current Complaints B knee pain & sciatic pain R buttocks and down leg History of Current Condition Pt reports B knee pain for years without injuries but arthritis and pt notices she is knock-kneed. Notices her feet are off from that. Pt reports sciatic pain has been going on about 10 months. It was around when [facility] moved here . Ant lat thigh pain started w /move and she had a cramp in lat quad region after. Pt reprots buttocks and leg pain that is worst at night. She has to roll back and forth at night. She is getting a sleep study in Dec. Pt erports she has to take ibuprfoen often d/ t pain more so the last 6 months or so. Can only be active for so long and then has to put her feet up. 1 year ago, she had a home gym and was working with a medical management trainer 2x/ week. This last year, she feels like she is falling apart. She has a lot going on, so she hasn't done as much exercise and self care. Reports she has recently irritated her L shoulder and things she lifted something sideways that was too heavy and now can;t abd or IR and it pops occ. Prior Treatments and Tests L knee xray: Bones: No fractures or dislocations. Moderate narrowing of the lateral compartment joint space with prominent osteophytosis and sclerosis of the lateral tibial plateau. The medial and patellofemoral joint spaces are maintained but demonstrate periarticular osteophytosis. Soft tissues: Small joint effusion. No suspicious soft tissue calcifications. 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 no other treatment tried besides one injection in her knee over 5 years ago that didn't help much. Treatment Goals Patient/Caregiver Goals Get to where she doesn't have LB/hip pain, get her legs stronger so she can be more stable w/knees, be able to increase stamina PT-OP-C Subjective Start: 12/06/21 17:49 Freq: Status: Active Protocol: Document 12/28/21 10:09 [facility] (Rec: 12/28/21 10:47 [facility] [id number]) OP-PT Subjective Patient Comments Patient Comments Pt reports her pain is unchanged. She has been doing her home exercises with no problem. PT-OP-G Mobility & Gait Start: 12/06/21 17:49 Freq: Status: Active Protocol: Document 12/10/21 12:12 [facility] (Rec: 12/10/21 13:49 [facility] [id number]) OP Gait Assessment Comments Gait Comments no UE motion, dec trunk motion , dec push off B, lat lean b PT-OP-J Posture/Palpation/Skin Start: 12/06/21 17:49 Freq: Status: Active Protocol: Document 12/10/21 12:12 [facility] (Rec: 12/10/21 13:49 [facility] [id number]) Posture Evaluation [facility] Postural Classification System [facility] Postural Classifications Posterior/Anterior Vertebral Compression Test 1 Lumbar Protective Mechanism Left AP 0 Lumbar Protective Mechanism Right AP 0 Lumbar Protective Mechanism Left PA 1 Lumbar Protective Mechanism Right PA 3 Comments Posture Comments SLS 10 sec L, 9 sec R w/ excessive UE motion;B kne evalgus, forefoot varus, rearfoot valgus; min R greater troch higher, R iliac crest higher PT-OP-K Range of Motion Start: 12/06/21 17:49 Freq: Status: Active Protocol: Document 12/10/21 12:12 [facility] (Rec: 12/10/21 13:49 [facility] [id number]) Lumbar Spine Range of Motion Lumbar Spine Active Degrees Rotation Left 48 Rotation Right 45 Comments 1 in above patella w/lumbar only, 2 in above ankle flex, ext about 80%; SB equal B good ROM Knee Goniometric Range of Motion Knee Right Flexion Active (degrees) 90 Extension Active (degrees) 10 Left Flexion Active (degrees) 113 Extension Active (degrees) 10 PT-OP-L Special Tests Start: 12/06/21 17:49 Freq: Status: Active Protocol: Document 12/10/21 12:12 [facility] (Rec: 12/10/21 13:49 [facility] [id number]) Special Tests Lumbar Spine Special Tests Chay's Test Results neg B Milind Test Results quads tight B Straight Leg Raise Test Results 91 L; 68 R Slump Test Results tightness R PT-OP-M Strength Start: 12/06/21 17:49 Freq: Status: Active Protocol: Document 12/10/21 12:12 [facility] (Rec: 12/10/21 13:49 [facility] [id number]) Hip Strength Hip Manual Muscle Testing Right Flexion (L2) 4- Good- Extension (S1) 3- Fair- Abduction 3 Fair Adduction 4+ Good+ External Rotation 3+ Fair+ Internal Rotation 4- Good- Comments crepitis B w/ER Left Flexion (L2) 4- Good- Extension (S1) 3+ Fair+ Abduction 3 Fair Adduction 4 Good External Rotation 3+ Fair+ Internal Rotation 4- Good- Knee Strength Knee Manual Muscle Testing Right Flexion (S2) 4+ Good+ Extension (L3) 4 Good Left Flexion (S2) 4+ Good+ Extension (L3) 4 Good Comments significant crepetitis w/ext B Ankle/Foot Strength Ankle and Foot Manual Muscle Testing Right Dorsiflexion (L4) 4 Good Plantarflexion (S1) 4- Good- Comments 13 heel raises Left Dorsiflexion (L4) 4 Good Plantarflexion (S1) 4- Good- Comments crepitis B knees w/DF: 13 heel raises PT-OP-Q Treatments Start: 12/06/21 17:49 Freq: Status: Active Protocol: Document 12/28/21 10:09 [id number] (Rec: 12/28/21 10:47 NB [id number]) Cardio Equipment Recumbent Elliptical (Biodex) Duration (Minutes) 5 Resistance 4 Therapeutic Exercises Supine Exercises Bridging Supine Exercise Name w/ ball squeeze Equipment Used blue ball Reps/Minutes 10 x 3-5 SH Comments cues for breathholding IT Band stretch Side bilateral Equipment Used w/ strap Reps/Minutes 2 x 45s HS Stretch Side bilateral Equipment Used w/ strap Reps/Minutes 2 x 45s Pififormis stretch Side bilateral Equipment Used w/strap Reps/Minutes 2 x 45s PPT Reps/Minutes 10 x 5SH hold Comments w/TrA focus, no breathholding Standing Exercises Hip extension Side bilateral Resistance yellow band Equipment Used handrail Reps/Minutes 2 x 10 Comments added to HEP Resisted Sidestep Standing Exercise Name Bandwalking, lat Side bilateral Resistance yellow band Equipment Used handrail Reps/Minutes 3 x 10ft ea ankles, 1 x 10 ft knees Comments added to HEP (ankles) Self-Care/Home Management Treatment Education Patient Education Home Exercise Program Other Education Added resisted side step and standing hip extension to HEP - HO and Lvl 2 Tb given. PT-OP-T Assessment and Plan Start: 12/06/21 17:49 Freq: Status: Active Protocol: Document 12/28/21 10:09 NB (Rec: 12/28/21 10:47 [facility] [id number]) Physical Therapy Assessment Goals activity tolerance Short Term Goal (STG) Pt will be able to comfortably do sit to stand after sitting extended w/o inc pain STG Duration 02/09 Bale Breaker Operator Goal (LTG) Pt will be able to stand as needed and move around house without requiring mult rest breaks in day. LTG Duration 03/11 strength Short Term Goal (STG) Pt will be indep w/HEP for strength, ROM, balance and pain relief STG Duration 02/08 Jail Goal (LTG) Pt will score at least 4+/5 on MMT LEs and at least 3/5 on LPM in all planes to show improved stability. LTG Duration 03/11 Three Impairment HECTOR 19/50 Impairment PF strength 3/5 Short Term Goal (STG) Pt will improve score of HECTOR to no greater than 13/50 to show improved functional ability. STG Duration 01/29 Bale Breaker Operator Goal (LTG) Pt will improve score of HECTOR to no greater than 4/50 to show improved functional ability. LTG Duration 03/11 Two Impairment stairs step to Impairment Uses substitute muscles to get a PF contraction. Short Term Goal (STG) Pt will be able to go up stairs reciprocally w/o rail w /o inc pain. STG Duration 01/29 Jail Goal (LTG) Pt will be able to go down stairs reciprocally w/o rail w /o inc pain. LTG Duration 03/11 Assessment Summary Assessment Treatment focus on HEP review and hip strengthening today. Pt demonstrates good form with HEP with minimal cues for breathholding. Pt reminded to added folded pillow or ball squeeze to bridges. Pt requires cues for excessive hip rotation and controlled eccentric movement with resisted hip abduction and extension. Added resisted side step and standing hip extension to HEP - HO and Lvl 2 Tb given. Physical Therapy Plan Next Visit Focus/Plan Next Note Type Treatment Note Next Visit Plan HEP:piriformis stretch, post pelvic tilts, HS stretch active, bridge, standing sidestep; manual to glutes and hip joint mobility R
--- NOTE | 2021-12-31 11:16 | PT.OTN ---
Current Diagnoses Pain in right knee (12/31/21) Pain in left knee (12/31/21) Lumbago with sciatica, right side (12/31/21) Abnormal posture (12/31/21) Weakness (12/31/21) Physical Therapy Treatment Note PT-OP-A Visit Information Start: 12/06/21 17:49 Freq: Status: Active Protocol: Document 12/31/21 10:38 NBM (Rec: 12/31/21 11:16 NBM [id number]) Out-Patient Physical Therapy Visit Information Visit Information Visit Start Time 10:32 Visit Stop Time 11:05 Total Visit Minutes 33 Visit Number 4 Number of PRODUCT/DEVICE TECHNOLOGIST Visits 3 PT-OP-B Current Condition Start: 12/06/21 17:49 Freq: Status: Active Protocol: Document 12/10/21 12:12 [facility] (Rec: 12/10/21 13:49 [facility] [id number]) Current Condition History of Current Condition Current Complaints B knee pain & sciatic pain R buttocks and down leg History of Current Condition Pt reports B knee pain for years without injuries but arthritis and pt notices she is knock-kneed. Notices her feet are off from that. Pt reports sciatic pain has been going on about 10 months. It was around when [facility] moved here . Ant lat thigh pain started w /move and she had a cramp in lat quad region after. Pt reprots buttocks and leg pain that is worst at night. She has to roll back and forth at night. She is getting a sleep study in Dec. Pt erports she has to take ibuprfoen often d/ t pain more so the last 6 months or so. Can only be active for so long and then has to put her feet up. 1 year ago, she had a home gym and was working with a weight trainer 2x/ week. This last year, she feels like she is falling apart. She has a lot going on, so she hasn't done as much exercise and self care. Reports she has recently irritated her L shoulder and things she lifted something sideways that was too heavy and now can;t abd or IR and it pops occ. Prior Treatments and Tests L knee xray: Bones: No fractures or dislocations. Moderate narrowing of the lateral compartment joint space with prominent osteophytosis and sclerosis of the lateral tibial plateau. The medial and patellofemoral joint spaces are maintained but demonstrate periarticular osteophytosis. Soft tissues: Small joint effusion. No suspicious soft tissue calcifications. 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 no other treatment tried besides one injection in her knee over 5 years ago that didn't help much. Treatment Goals Patient/Caregiver Goals Get to where she doesn't have LB/hip pain, get her legs stronger so she can be more stable w/knees, be able to increase stamina PT-OP-C Subjective Start: 12/06/21 17:49 Freq: Status: Active Protocol: Document 12/31/21 10:38 NBM (Rec: 12/31/21 11:16 NB [id number]) OP-PT Subjective Patient Comments Patient Comments Pt feels good today. PT-OP-G Mobility & Gait Start: 12/06/21 17:49 Freq: Status: Active Protocol: Document 12/10/21 12:12 [facility] (Rec: 12/10/21 13:49 [facility] [id number]) OP Gait Assessment Comments Gait Comments no UE motion, dec trunk motion , dec push off B, lat lean b PT-OP-J Posture/Palpation/Skin Start: 12/06/21 17:49 Freq: Status: Active Protocol: Document 12/10/21 12:12 [facility] (Rec: 12/10/21 13:49 [facility] [id number]) Posture Evaluation [facility] Postural Classification System [facility] Postural Classifications Posterior/Anterior Vertebral Compression Test 1 Lumbar Protective Mechanism Left AP 0 Lumbar Protective Mechanism Right AP 0 Lumbar Protective Mechanism Left PA 1 Lumbar Protective Mechanism Right PA 3 Comments Posture Comments SLS 10 sec L, 9 sec R w/ excessive UE motion;B kne evalgus, forefoot varus, rearfoot valgus; min R greater troch higher, R iliac crest higher PT-OP-K Range of Motion Start: 12/06/21 17:49 Freq: Status: Active Protocol: Document 12/10/21 12:12 [facility] (Rec: 12/10/21 13:49 [facility] [id number]) Lumbar Spine Range of Motion Lumbar Spine Active Degrees Rotation Left 48 Rotation Right 45 Comments 1 in above patella w/lumbar only, 2 in above ankle flex, ext about 80%; SB equal B good ROM Knee Goniometric Range of Motion Knee Right Flexion Active (degrees) 90 Extension Active (degrees) 10 Left Flexion Active (degrees) 113 Extension Active (degrees) 10 PT-OP-L Special Tests Start: 12/06/21 17:49 Freq: Status: Active Protocol: Document 12/10/21 12:12 [facility] (Rec: 12/10/21 13:49 [facility] [id number]) Special Tests Lumbar Spine Special Tests Chay's Test Results neg B Milind Test Results quads tight B Straight Leg Raise Test Results 91 L; 68 R Slump Test Results tightness R PT-OP-M Strength Start: 12/06/21 17:49 Freq: Status: Active Protocol: Document 12/10/21 12:12 [facility] (Rec: 12/10/21 13:49 [facility] [id number]) Hip Strength Hip Manual Muscle Testing Right Flexion (L2) 4- Good- Extension (S1) 3- Fair- Abduction 3 Fair Adduction 4+ Good+ External Rotation 3+ Fair+ Internal Rotation 4- Good- Comments crepitis B w/ER Left Flexion (L2) 4- Good- Extension (S1) 3+ Fair+ Abduction 3 Fair Adduction 4 Good External Rotation 3+ Fair+ Internal Rotation 4- Good- Knee Strength Knee Manual Muscle Testing Right Flexion (S2) 4+ Good+ Extension (L3) 4 Good Left Flexion (S2) 4+ Good+ Extension (L3) 4 Good Comments significant crepetitis w/ext B Ankle/Foot Strength Ankle and Foot Manual Muscle Testing Right Dorsiflexion (L4) 4 Good Plantarflexion (S1) 4- Good- Comments 13 heel raises Left Dorsiflexion (L4) 4 Good Plantarflexion (S1) 4- Good- Comments crepitis B knees w/DF: 13 heel raises PT-OP-Q Treatments Start: 12/06/21 17:49 Freq: Status: Active Protocol: Document 12/31/21 10:38 NBM (Rec: 12/31/21 11:16 NBM [id number]) Cardio Equipment Recumbent Stepper (Sci-Fit) Duration (Minutes) 6 Resistance 1.0 Seat Position 12 Other vc to push through heel, knee alignment Therapeutic Exercises Supine Exercises Bridging Supine Exercise Name 1. w/ ball squeeze 2. Lvl 2 Tb at knees (HEP) Equipment Used blue ball, Lvl 2 Tb Reps/Minutes 10 x 3-5 SH Comments cues for glute squeeze, slow eccentric Standing Exercises Hip extension Side bilateral Resistance LVl 2 TB ankles Equipment Used handrail Reps/Minutes 2 x 10 Resisted Sidestep Standing Exercise Name Bandwalking, lat Side bilateral Resistance Lvl 2 Tb ankles Equipment Used handrail Reps/Minutes 2 x 10ft ea Self-Care/Home Management Treatment Education Patient Education Home Exercise Program Other Education Added resisted Bridge to HEP - HO given. PT-OP-T Assessment and Plan Start: 12/06/21 17:49 Freq: Status: Active Protocol: Document 12/31/21 10:38 NBM (Rec: 12/31/21 11:16 NBM [id number]) Physical Therapy Assessment Goals activity tolerance Short Term Goal (STG) Pt will be able to comfortably do sit to stand after sitting extended w/o inc pain STG Duration 02/09 [facility] Goal (LTG) Pt will be able to stand as needed and move around house without requiring mult rest breaks in day. LTG Duration 03/11 strength Short Term Goal (STG) Pt will be indep w/HEP for strength, ROM, balance and pain relief STG Duration 02/08 [facility] Goal (LTG) Pt will score at least 4+/5 on MMT LEs and at least 3/5 on LPM in all planes to show improved stability. LTG Duration 03/11 Three Impairment HECTOR 19/50 Impairment PF strength 3/5 Short Term Goal (STG) Pt will improve score of HECTOR to no greater than 13/50 to show improved functional ability. STG Duration 01/29 [facility] Goal (LTG) Pt will improve score of HECTOR to no greater than 4/50 to show improved functional ability. LTG Duration 03/11 Two Impairment stairs step to Impairment Uses substitute muscles to get a PF contraction. Short Term Goal (STG) Pt will be able to go up stairs reciprocally w/o rail w /o inc pain. STG Duration 01/29 Pediatric Hospitalist Goal (LTG) Pt will be able to go down stairs reciprocally w/o rail w /o inc pain. LTG Duration 03/11 Assessment Summary Assessment Pt requests to leave early due to schedule conflict. Treatment focus on hip strengthening w/ HEP review and bridging progression. Pt performs resisted sidesteps w/ improved self-awareness and self-correction this treatment . When left lateral sidestepping pt performs R hip rotation w/ LLE in slight hip ext - improves w/ cues to hike left hip. With standing hip extension pt requires initial cues for upright posture, straight leg, and neutral foot position. Pt does not require cues for breathholding with bridging this treatment, but needs cues for glute squeeze and slow eccentric motion. Added resisted Bridge to HEP - HO given. No knee pain reported this treatment. Physical Therapy Plan Frequency and Duration Frequency of Treatment 2x/Week Plan of Care Start Date 12/10/21 Plan of Care End Date 03/11/22 Therapeutic Interventions Therapeutic Interventions Aquatic Therapy,Balance Training,Gait Training,Home Exercise Program,Joint Mobilizations,Manual Therapy, Neuromuscular Re-education, Orthotic/Prosthetic Management ,Patient/Caregiver Education, Self-Care/Home Management,Soft Tissue Mobilization,Taping, Therapeutic Activities, Therapeutic Exercises Modalities Cold Pack/Ice Massage,Electric Stimulation,Hot Packs, Traction- Mechanical, Ultrasound Next Visit Focus/Plan Next Note Type Treatment Note Next Visit Plan HEP:piriformis stretch, post pelvic tilts, HS stretch active, bridge w/ ball squeeze and w/ resistance, standing sidestep; manual to glutes and hip joint mobility R
--- NOTE | 2022-01-03 14:36 | PT.OTN ---
Current Diagnoses Pain in right knee (01/03/22) Pain in left knee (01/03/22) Lumbago with sciatica, right side (01/03/22) Abnormal posture (01/03/22) Weakness (01/03/22) Physical Therapy Treatment Note PT-OP-A Visit Information Start: 12/06/21 17:49 Freq: Status: Active Protocol: Document 01/03/22 13:44 [facility] (Rec: 01/03/22 14:36 [facility] [id number]) Out-Patient Physical Therapy Visit Information Visit Information Visit Type Treatment Note Visit Start Time 13:50 Visit Stop Time 14:30 Total Visit Minutes 40 Visit Number 5 Number of CLINICAL SPECIALTY REP Visits 0 PT-OP-B Current Condition Start: 12/06/21 17:49 Freq: Status: Active Protocol: Document 12/10/21 12:12 [facility] (Rec: 12/10/21 13:49 [facility] [id number]) Current Condition History of Current Condition Current Complaints B knee pain & sciatic pain R buttocks and down leg History of Current Condition Pt reports B knee pain for years without injuries but arthritis and pt notices she is knock-kneed. Notices her feet are off from that. Pt reports sciatic pain has been going on about 10 months. It was around when [facility] moved here . Ant lat thigh pain started w /move and she had a cramp in lat quad region after. Pt reprots buttocks and leg pain that is worst at night. She has to roll back and forth at night. She is getting a sleep study in Dec. Pt erports she has to take ibuprfoen often d/ t pain more so the last 6 months or so. Can only be active for so long and then has to put her feet up. 1 year ago, she had a home gym and was working with a animal trainer 2x/ week. This last year, she feels like she is falling apart. She has a lot going on, so she hasn't done as much exercise and self care. Reports she has recently irritated her L shoulder and things she lifted something sideways that was too heavy and now can;t abd or IR and it pops occ. Prior Treatments and Tests L knee xray: Bones: No fractures or dislocations. Moderate narrowing of the lateral compartment joint space with prominent osteophytosis and sclerosis of the lateral tibial plateau. The medial and patellofemoral joint spaces are maintained but demonstrate periarticular osteophytosis. Soft tissues: Small joint effusion. No suspicious soft tissue calcifications. 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 no other treatment tried besides one injection in her knee over 5 years ago that didn't help much. Treatment Goals Patient/Caregiver Goals Get to where she doesn't have LB/hip pain, get her legs stronger so she can be more stable w/knees, be able to increase stamina PT-OP-C Subjective Start: 12/06/21 17:49 Freq: Status: Active Protocol: Document 01/03/22 13:44 [facility] (Rec: 01/03/22 14:36 [facility] [id number]) OP-PT Subjective Patient Comments Patient Comments Pt has been doing the exercises are helpful and feels like she is moving better and moving more. Patient Reported Progress Improving PT-OP-G Mobility & Gait Start: 12/06/21 17:49 Freq: Status: Active Protocol: Document 12/10/21 12:12 [facility] (Rec: 12/10/21 13:49 [facility] [id number]) OP Gait Assessment Comments Gait Comments no UE motion, dec trunk motion , dec push off B, lat lean b PT-OP-J Posture/Palpation/Skin Start: 12/06/21 17:49 Freq: Status: Active Protocol: Document 12/10/21 12:12 [facility] (Rec: 12/10/21 13:49 [facility] [id number]) Posture Evaluation [facility] Postural Classification System [facility] Postural Classifications Posterior/Anterior Vertebral Compression Test 1 Lumbar Protective Mechanism Left AP 0 Lumbar Protective Mechanism Right AP 0 Lumbar Protective Mechanism Left PA 1 Lumbar Protective Mechanism Right PA 3 Comments Posture Comments SLS 10 sec L, 9 sec R w/ excessive UE motion;B kne evalgus, forefoot varus, rearfoot valgus; min R greater troch higher, R iliac crest higher PT-OP-K Range of Motion Start: 12/06/21 17:49 Freq: Status: Active Protocol: Document 12/10/21 12:12 [facility] (Rec: 12/10/21 13:49 [facility] [id number]) Lumbar Spine Range of Motion Lumbar Spine Active Degrees Rotation Left 48 Rotation Right 45 Comments 1 in above patella w/lumbar only, 2 in above ankle flex, ext about 80%; SB equal B good ROM Knee Goniometric Range of Motion Knee Right Flexion Active (degrees) 90 Extension Active (degrees) 10 Left Flexion Active (degrees) 113 Extension Active (degrees) 10 PT-OP-L Special Tests Start: 12/06/21 17:49 Freq: Status: Active Protocol: Document 12/10/21 12:12 [facility] (Rec: 12/10/21 13:49 [facility] [id number]) Special Tests Lumbar Spine Special Tests Chay's Test Results neg B Milind Test Results quads tight B Straight Leg Raise Test Results 91 L; 68 R Slump Test Results tightness R PT-OP-M Strength Start: 12/06/21 17:49 Freq: Status: Active Protocol: Document 12/10/21 12:12 [facility] (Rec: 12/10/21 13:49 [facility] [id number]) Hip Strength Hip Manual Muscle Testing Right Flexion (L2) 4- Good- Extension (S1) 3- Fair- Abduction 3 Fair Adduction 4+ Good+ External Rotation 3+ Fair+ Internal Rotation 4- Good- Comments crepitis B w/ER Left Flexion (L2) 4- Good- Extension (S1) 3+ Fair+ Abduction 3 Fair Adduction 4 Good External Rotation 3+ Fair+ Internal Rotation 4- Good- Knee Strength Knee Manual Muscle Testing Right Flexion (S2) 4+ Good+ Extension (L3) 4 Good Left Flexion (S2) 4+ Good+ Extension (L3) 4 Good Comments significant crepetitis w/ext B Ankle/Foot Strength Ankle and Foot Manual Muscle Testing Right Dorsiflexion (L4) 4 Good Plantarflexion (S1) 4- Good- Comments 13 heel raises Left Dorsiflexion (L4) 4 Good Plantarflexion (S1) 4- Good- Comments crepitis B knees w/DF: 13 heel raises PT-OP-Q Treatments Start: 12/06/21 17:49 Freq: Status: Active Protocol: Document 01/03/22 13:44 [facility] (Rec: 01/03/22 14:36 [facility] [id number]) Cardio Equipment Bicycle (Upright) Duration (Minutes) 6 Resistance 6 Seat Position 8 Therapeutic Exercises Standing Exercises step up Side bilateral Equipment Used 6 in step Reps/Minutes 15 Comments cues tactile and VC for knee tracking & big toe down sit to stand Side bilateral Reps/Minutes 10 wall squat Standing Exercise Name mini-stopped d/t pain Side bilateral Equipment Used ball Reps/Minutes 5 Manual Therapy Treatment Soft Tissue Mobilization quad Body Location R Mobilization Type Rolling Intensity/Depth Moderate Body Position Prone Comments w/knee flex glutes Body Location R Mobilization Type Sustained Pressure Intensity/Depth Moderate Body Position Prone Comments hip IR/ER Joint Mobilizations Hip Joint R Direction on axis ER FM Neuro Re-Education Treatment Balance Activities SLS Details w/counter touch for balance PT-OP-T Assessment and Plan Start: 12/06/21 17:49 Freq: Status: Active Protocol: Document 01/03/22 13:44 [facility] (Rec: 01/03/22 14:36 [facility] [id number]) Physical Therapy Assessment Goals activity tolerance Short Term Goal (STG) Pt will be able to comfortably do sit to stand after sitting extended w/o inc pain STG Duration 02/09 Nursing Home Goal (LTG) Pt will be able to stand as needed and move around house without requiring mult rest breaks in day. LTG Duration 03/11 strength Short Term Goal (STG) Pt will be indep w/HEP for strength, ROM, balance and pain relief STG Duration 02/08 Nursing Home Goal (LTG) Pt will score at least 4+/5 on MMT LEs and at least 3/5 on LPM in all planes to show improved stability. LTG Duration 03/11 Three Impairment HECTOR 19/50 Impairment PF strength 3/5 Short Term Goal (STG) Pt will improve score of HECTOR to no greater than 13/50 to show improved functional ability. STG Duration 01/29 Nursing Home Goal (LTG) Pt will improve score of HECTOR to no greater than 4/50 to show improved functional ability. LTG Duration 03/11 Two Impairment stairs step to Impairment Uses substitute muscles to get a PF contraction. Short Term Goal (STG) Pt will be able to go up stairs reciprocally w/o rail w /o inc pain. STG Duration 01/29 Nursing Home Goal (LTG) Pt will be able to go down stairs reciprocally w/o rail w /o inc pain. LTG Duration 03/11 Assessment Summary Assessment Pt did well with exercises today but was unable to d wall squat w/o pain so transitioned to sit to stand whcihw as a challenge but not painful. Improved R hip rotation w/manual Physical Therapy Plan Frequency and Duration Frequency of Treatment 2x/Week Plan of Care Start Date 12/10/21 Plan of Care End Date 03/11/22 Next Visit Focus/Plan Next Note Type Treatment Note
--- NOTE | 2022-01-07 11:19 | PT.OTN ---
Current Diagnoses Pain in right knee (01/07/22) Pain in left knee (01/07/22) Lumbago with sciatica, right side (01/07/22) Abnormal posture (01/07/22) Weakness (01/07/22) Physical Therapy Treatment Note PT-OP-A Visit Information Start: 12/06/21 17:49 Freq: Status: Active Protocol: Document 01/07/22 10:33 [facility] (Rec: 01/07/22 11:19 [facility] [id number]) Out-Patient Physical Therapy Visit Information Visit Information Visit Type Treatment Note Visit Note 09/07 Visit Start Time 10:34 Visit Stop Time 11:16 Total Visit Minutes 42 Visit Number 6 Number of HYPERBARIC TECHNOLOGIST Visits 0 PT-OP-B Current Condition Start: 12/06/21 17:49 Freq: Status: Active Protocol: Document 12/10/21 12:12 [facility] (Rec: 12/10/21 13:49 [facility] [id number]) Current Condition History of Current Condition Current Complaints B knee pain & sciatic pain R buttocks and down leg History of Current Condition Pt reports B knee pain for years without injuries but arthritis and pt notices she is knock-kneed. Notices her feet are off from that. Pt reports sciatic pain has been going on about 10 months. It was around when [facility] moved here . Ant lat thigh pain started w /move and she had a cramp in lat quad region after. Pt reprots buttocks and leg pain that is worst at night. She has to roll back and forth at night. She is getting a sleep study in Dec. Pt erports she has to take ibuprfoen often d/ t pain more so the last 6 months or so. Can only be active for so long and then has to put her feet up. 1 year ago, she had a home gym and was working with a ehr trainer 2x/ week. This last year, she feels like she is falling apart. She has a lot going on, so she hasn't done as much exercise and self care. Reports she has recently irritated her L shoulder and things she lifted something sideways that was too heavy and now can;t abd or IR and it pops occ. Prior Treatments and Tests L knee xray: Bones: No fractures or dislocations. Moderate narrowing of the lateral compartment joint space with prominent osteophytosis and sclerosis of the lateral tibial plateau. The medial and patellofemoral joint spaces are maintained but demonstrate periarticular osteophytosis. Soft tissues: Small joint effusion. No suspicious soft tissue calcifications. 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 no other treatment tried besides one injection in her knee over 5 years ago that didn't help much. Treatment Goals Patient/Caregiver Goals Get to where she doesn't have LB/hip pain, get her legs stronger so she can be more stable w/knees, be able to increase stamina PT-OP-C Subjective Start: 12/06/21 17:49 Freq: Status: Active Protocol: Document 01/07/22 10:33 [facility] (Rec: 01/07/22 11:19 [facility] [id number]) OP-PT Subjective Patient Comments Patient Comments Pt reports seh felt good after last session. Patient Reported Progress Improving PT-OP-G Mobility & Gait Start: 12/06/21 17:49 Freq: Status: Active Protocol: Document 12/10/21 12:12 [facility] (Rec: 12/10/21 13:49 [facility] [id number]) OP Gait Assessment Comments Gait Comments no UE motion, dec trunk motion , dec push off B, lat lean b PT-OP-J Posture/Palpation/Skin Start: 12/06/21 17:49 Freq: Status: Active Protocol: Document 12/10/21 12:12 [facility] (Rec: 12/10/21 13:49 [facility] [id number]) Posture Evaluation [facility] Postural Classification System Becki Postural Classifications Posterior/Anterior Vertebral Compression Test 1 Lumbar Protective Mechanism Left AP 0 Lumbar Protective Mechanism Right AP 0 Lumbar Protective Mechanism Left PA 1 Lumbar Protective Mechanism Right PA 3 Comments Posture Comments SLS 10 sec L, 9 sec R w/ excessive UE motion;B kne evalgus, forefoot varus, rearfoot valgus; min R greater troch higher, R iliac crest higher PT-OP-K Range of Motion Start: 12/06/21 17:49 Freq: Status: Active Protocol: Document 12/10/21 12:12 [facility] (Rec: 12/10/21 13:49 [facility] [id number]) Lumbar Spine Range of Motion Lumbar Spine Active Degrees Rotation Left 48 Rotation Right 45 Comments 1 in above patella w/lumbar only, 2 in above ankle flex, ext about 80%; SB equal B good ROM Knee Goniometric Range of Motion Knee Right Flexion Active (degrees) 90 Extension Active (degrees) 10 Left Flexion Active (degrees) 113 Extension Active (degrees) 10 PT-OP-L Special Tests Start: 12/06/21 17:49 Freq: Status: Active Protocol: Document 12/10/21 12:12 [facility] (Rec: 12/10/21 13:49 [facility] [id number]) Special Tests Lumbar Spine Special Tests Chay's Test Results neg B Milind Test Results quads tight B Straight Leg Raise Test Results 91 L; 68 R Slump Test Results tightness R PT-OP-M Strength Start: 12/06/21 17:49 Freq: Status: Active Protocol: Document 12/10/21 12:12 [facility] (Rec: 12/10/21 13:49 [facility] [id number]) Hip Strength Hip Manual Muscle Testing Right Flexion (L2) 4- Good- Extension (S1) 3- Fair- Abduction 3 Fair Adduction 4+ Good+ External Rotation 3+ Fair+ Internal Rotation 4- Good- Comments crepitis B w/ER Left Flexion (L2) 4- Good- Extension (S1) 3+ Fair+ Abduction 3 Fair Adduction 4 Good External Rotation 3+ Fair+ Internal Rotation 4- Good- Knee Strength Knee Manual Muscle Testing Right Flexion (S2) 4+ Good+ Extension (L3) 4 Good Left Flexion (S2) 4+ Good+ Extension (L3) 4 Good Comments significant crepetitis w/ext B Ankle/Foot Strength Ankle and Foot Manual Muscle Testing Right Dorsiflexion (L4) 4 Good Plantarflexion (S1) 4- Good- Comments 13 heel raises Left Dorsiflexion (L4) 4 Good Plantarflexion (S1) 4- Good- Comments crepitis B knees w/DF: 13 heel raises PT-OP-Q Treatments Start: 12/06/21 17:49 Freq: Status: Active Protocol: Document 01/07/22 10:33 [facility] (Rec: 01/07/22 11:19 [facility] [id number]) Cardio Equipment Bicycle (Upright) Duration (Minutes) 5 Resistance 8 Seat Position 8 Therapeutic Exercises Sidelying Exercises hip abd Side bilateral Reps/Minutes 15 Standing Exercises step up Side bilateral Equipment Used 6 in step Reps/Minutes 15 Comments cues tactile and VC for knee tracking & big toe down sit to stand Side bilateral Reps/Minutes 6 Comments improved control Manual Therapy Treatment Soft Tissue Mobilization HS Body Location R med proximal Mobilization Type Rolling,Strumming Intensity/Depth Moderate Comments w/knee flex ext on PT shoulder Joint Mobilizations tibfem Joint AP R FM Patellofemoral Joint sup, inf, med FM Hip Joint B Direction abd FM PT-OP-T Assessment and Plan Start: 12/06/21 17:49 Freq: Status: Active Protocol: Document 01/07/22 10:33 [facility] (Rec: 01/07/22 11:19 [facility] [id number]) Physical Therapy Assessment Goals activity tolerance Short Term Goal (STG) Pt will be able to comfortably do sit to stand after sitting extended w/o inc pain STG Duration 02/09 Coagulant Dipper Goal (LTG) Pt will be able to stand as needed and move around house without requiring mult rest breaks in day. LTG Duration 03/11 strength Short Term Goal (STG) Pt will be indep w/HEP for strength, ROM, balance and pain relief STG Duration 02/08 Coagulant Dipper Goal (LTG) Pt will score at least 4+/5 on MMT LEs and at least 3/5 on LPM in all planes to show improved stability. LTG Duration 03/11 Three Impairment HECTOR 19/50 Impairment PF strength 3/5 Short Term Goal (STG) Pt will improve score of HECTOR to no greater than 13/50 to show improved functional ability. STG Duration 01/29 Senior Care Goal (LTG) Pt will improve score of HECTOR to no greater than 4/50 to show improved functional ability. LTG Duration 03/11 Two Impairment stairs step to Impairment Uses substitute muscles to get a PF contraction. Short Term Goal (STG) Pt will be able to go up stairs reciprocally w/o rail w /o inc pain. STG Duration 01/29 Senior Care Goal (LTG) Pt will be able to go down stairs reciprocally w/o rail w /o inc pain. LTG Duration 03/11 Assessment Summary Assessment Adjusted HEP for hip abd s/l vs sidesteps d/t sidestps uncomfortable for pt. She did better with sit to stands with much more control. cues still needed w/step ups. Physical Therapy Plan Frequency and Duration Frequency of Treatment 2x/Week Plan of Care Start Date 12/10/21 Plan of Care End Date 12/12/22 Next Visit Focus/Plan Next Note Type Treatment Note Next Visit Plan cont to wrok hips and knee joint mobility manually; try leg press
--- NOTE | 2022-01-10 11:35 | PT.OTN ---
Current Diagnoses Pain in right knee (01/10/22) Pain in left knee (01/10/22) Lumbago with sciatica, right side (01/10/22) Abnormal posture (01/10/22) Weakness (01/10/22) Physical Therapy Treatment Note PT-OP-A Visit Information Start: 12/06/21 17:49 Freq: Status: Active Protocol: Document 01/10/22 10:36 [facility] (Rec: 01/10/22 11:35 [facility] [id number]) Out-Patient Physical Therapy Visit Information Visit Information Visit Type Treatment Note Visit Note 10/07 Visit Start Time 10:36 Visit Stop Time 11:18 Total Visit Minutes 42 Visit Number 7 Number of UNDERTAKER ASSISTANT Visits 0 PT-OP-B Current Condition Start: 12/06/21 17:49 Freq: Status: Active Protocol: Document 12/10/21 12:12 [facility] (Rec: 12/10/21 13:49 [facility] [id number]) Current Condition History of Current Condition Current Complaints B knee pain & sciatic pain R buttocks and down leg History of Current Condition Pt reports B knee pain for years without injuries but arthritis and pt notices she is knock-kneed. Notices her feet are off from that. Pt reports sciatic pain has been going on about 10 months. It was around when [facility] moved here . Ant lat thigh pain started w /move and she had a cramp in lat quad region after. Pt reprots buttocks and leg pain that is worst at night. She has to roll back and forth at night. She is getting a sleep study in Dec. Pt erports she has to take ibuprfoen often d/ t pain more so the last 6 months or so. Can only be active for so long and then has to put her feet up. 1 year ago, she had a home gym and was working with a boxing trainer 2x/ week. This last year, she feels like she is falling apart. She has a lot going on, so she hasn't done as much exercise and self care. Reports she has recently irritated her L shoulder and things she lifted something sideways that was too heavy and now can;t abd or IR and it pops occ. Prior Treatments and Tests L knee xray: Bones: No fractures or dislocations. Moderate narrowing of the lateral compartment joint space with prominent osteophytosis and sclerosis of the lateral tibial plateau. The medial and patellofemoral joint spaces are maintained but demonstrate periarticular osteophytosis. Soft tissues: Small joint effusion. No suspicious soft tissue calcifications. 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 no other treatment tried besides one injection in her knee over 5 years ago that didn't help much. Treatment Goals Patient/Caregiver Goals Get to where she doesn't have LB/hip pain, get her legs stronger so she can be more stable w/knees, be able to increase stamina PT-OP-C Subjective Start: 12/06/21 17:49 Freq: Status: Active Protocol: Document 01/10/22 10:36 [facility] (Rec: 01/10/22 11:35 [facility] [id number]) OP-PT Subjective Patient Comments Patient Comments Pt reports she feels like the hip work helped and back and hip felt okay while moving boxes and setting up kitchen along w/site seeing w/brother but knees were sore. PT-OP-G Mobility & Gait Start: 12/06/21 17:49 Freq: Status: Active Protocol: Document 12/10/21 12:12 [facility] (Rec: 12/10/21 13:49 [facility] [id number]) OP Gait Assessment Comments Gait Comments no UE motion, dec trunk motion , dec push off B, lat lean b PT-OP-J Posture/Palpation/Skin Start: 12/06/21 17:49 Freq: Status: Active Protocol: Document 12/10/21 12:12 [facility] (Rec: 12/10/21 13:49 [facility] [id number]) Posture Evaluation [facility] Postural Classification System [facility] Postural Classifications Posterior/Anterior Vertebral Compression Test 1 Lumbar Protective Mechanism Left AP 0 Lumbar Protective Mechanism Right AP 0 Lumbar Protective Mechanism Left PA 1 Lumbar Protective Mechanism Right PA 3 Comments Posture Comments SLS 10 sec L, 9 sec R w/ excessive UE motion;B kne evalgus, forefoot varus, rearfoot valgus; min R greater troch higher, R iliac crest higher PT-OP-K Range of Motion Start: 12/06/21 17:49 Freq: Status: Active Protocol: Document 12/10/21 12:12 [facility] (Rec: 12/10/21 13:49 [facility] [id number]) Lumbar Spine Range of Motion Lumbar Spine Active Degrees Rotation Left 48 Rotation Right 45 Comments 1 in above patella w/lumbar only, 2 in above ankle flex, ext about 80%; SB equal B good ROM Knee Goniometric Range of Motion Knee Right Flexion Active (degrees) 90 Extension Active (degrees) 10 Left Flexion Active (degrees) 113 Extension Active (degrees) 10 PT-OP-L Special Tests Start: 12/06/21 17:49 Freq: Status: Active Protocol: Document 12/10/21 12:12 [facility] (Rec: 12/10/21 13:49 [facility] [id number]) Special Tests Lumbar Spine Special Tests Chay's Test Results neg B Milind Test Results quads tight B Straight Leg Raise Test Results 91 L; 68 R Slump Test Results tightness R PT-OP-M Strength Start: 12/06/21 17:49 Freq: Status: Active Protocol: Document 12/10/21 12:12 [facility] (Rec: 12/10/21 13:49 [facility] [id number]) Hip Strength Hip Manual Muscle Testing Right Flexion (L2) 4- Good- Extension (S1) 3- Fair- Abduction 3 Fair Adduction 4+ Good+ External Rotation 3+ Fair+ Internal Rotation 4- Good- Comments crepitis B w/ER Left Flexion (L2) 4- Good- Extension (S1) 3+ Fair+ Abduction 3 Fair Adduction 4 Good External Rotation 3+ Fair+ Internal Rotation 4- Good- Knee Strength Knee Manual Muscle Testing Right Flexion (S2) 4+ Good+ Extension (L3) 4 Good Left Flexion (S2) 4+ Good+ Extension (L3) 4 Good Comments significant crepetitis w/ext B Ankle/Foot Strength Ankle and Foot Manual Muscle Testing Right Dorsiflexion (L4) 4 Good Plantarflexion (S1) 4- Good- Comments 13 heel raises Left Dorsiflexion (L4) 4 Good Plantarflexion (S1) 4- Good- Comments crepitis B knees w/DF: 13 heel raises PT-OP-Q Treatments Start: 12/06/21 17:49 Freq: Status: Active Protocol: Document 01/10/22 10:36 [facility] (Rec: 01/10/22 11:35 [facility] [id number]) Cardio Equipment Bicycle (Upright) Duration (Minutes) 5 Resistance 8 Seat Position 8 Gym Equipment Shuttle Recovery Unilateral Squats Resistance 37# Shuttle Recovery Platform Stable Reps/Time 15 ea Bilateral Squats Resistance 75# Shuttle Recovery Platform Stable Reps/Time 15 Therapeutic Exercises Sidelying Exercises hip abd Side bilateral Reps/Minutes 10 Comments cues for setup and position of leg & pelvis Standing Exercises hip hike Side bilateral Equipment Used on step w/harris. Reps/Minutes 8 ea step down Side bilateral Equipment Used 4 in step and rail prn Reps/Minutes 10 step up Side bilateral Equipment Used 6 in step Reps/Minutes 15 Comments cues tactile and VC for knee tracking & big toe down Manual Therapy Treatment Soft Tissue Mobilization ITB Body Location R Mobilization Type Strumming Intensity/Depth Moderate quad Body Location R Mobilization Type Rolling Intensity/Depth Moderate Body Position Hooklying Joint Mobilizations tibfem Comments AP R FM PA R FM Patellofemoral Joint sup, inf, med FM PT-OP-T Assessment and Plan Start: 12/06/21 17:49 Freq: Status: Active Protocol: Document 01/10/22 10:36 [facility] (Rec: 01/10/22 11:35 [facility] [id number]) Physical Therapy Assessment Goals activity tolerance Short Term Goal (STG) Pt will be able to comfortably do sit to stand after sitting extended w/o inc pain STG Duration 02/09 Medical Assistant Float Goal (LTG) Pt will be able to stand as needed and move around house without requiring mult rest breaks in day. LTG Duration 03/11 strength Short Term Goal (STG) Pt will be indep w/HEP for strength, ROM, balance and pain relief STG Duration 02/08 Medical Assistant Float Goal (LTG) Pt will score at least 4+/5 on MMT LEs and at least 3/5 on LPM in all planes to show improved stability. LTG Duration 03/11 Three Impairment HECTOR 19/50 Impairment PF strength 3/5 Short Term Goal (STG) Pt will improve score of HECTOR to no greater than 13/50 to show improved functional ability. STG Duration 01/29 Medical Assistant Float Goal (LTG) Pt will improve score of HECTOR to no greater than 4/50 to show improved functional ability. LTG Duration 03/11 Two Impairment stairs step to Impairment Uses substitute muscles to get a PF contraction. Short Term Goal (STG) Pt will be able to go up stairs reciprocally w/o rail w /o inc pain. STG Duration 01/29 [facility] Goal (LTG) Pt will be able to go down stairs reciprocally w/o rail w /o inc pain. LTG Duration 03/11 Assessment Summary Assessment Pt still requires a lot of cues for s/l abd and for step exercises. HIp hikes were good challenge to glutes. She is liimted in knee flex on R w/ good response to manual. Physical Therapy Plan Frequency and Duration Frequency of Treatment 2x/Week Plan of Care Start Date 12/10/21 Plan of Care End Date 03/11/22 Next Visit Focus/Plan Next Note Type Treatment Note Next Visit Plan cont to work hips and knee joint mobility manually; see how leg press went
--- NOTE | 2022-01-15 11:19 | PT.OTN ---
Current Diagnoses Pain in right knee (01/15/22) Pain in left knee (01/15/22) Lumbago with sciatica, right side (01/15/22) Abnormal posture (01/15/22) Weakness (01/15/22) Physical Therapy Treatment Note PT-OP-A Visit Information Start: 12/06/21 17:49 Freq: Status: Active Protocol: Document 01/15/22 10:34 [facility] (Rec: 01/15/22 11:19 [facility] [id number]) Out-Patient Physical Therapy Visit Information Visit Information Visit Type Treatment Note Visit Note 11/07 Visit Start Time 10:32 Visit Stop Time 11:15 Total Visit Minutes 43 Visit Number 8 Number of PRUNE WASHER Visits 0 PT-OP-B Current Condition Start: 12/06/21 17:49 Freq: Status: Active Protocol: Document 12/10/21 12:12 [facility] (Rec: 12/10/21 13:49 [facility] [id number]) Current Condition History of Current Condition Current Complaints B knee pain & sciatic pain R buttocks and down leg History of Current Condition Pt reports B knee pain for years without injuries but arthritis and pt notices she is knock-kneed. Notices her feet are off from that. Pt reports sciatic pain has been going on about 10 months. It was around when [facility] moved here . Ant lat thigh pain started w /move and she had a cramp in lat quad region after. Pt reprots buttocks and leg pain that is worst at night. She has to roll back and forth at night. She is getting a sleep study in Dec. Pt erports she has to take ibuprfoen often d/ t pain more so the last 6 months or so. Can only be active for so long and then has to put her feet up. 1 year ago, she had a home gym and was working with a personal fitness trainer 2x/ week. This last year, she feels like she is falling apart. She has a lot going on, so she hasn't done as much exercise and self care. Reports she has recently irritated her L shoulder and things she lifted something sideways that was too heavy and now can;t abd or IR and it pops occ. Prior Treatments and Tests L knee xray: Bones: No fractures or dislocations. Moderate narrowing of the lateral compartment joint space with prominent osteophytosis and sclerosis of the lateral tibial plateau. The medial and patellofemoral joint spaces are maintained but demonstrate periarticular osteophytosis. Soft tissues: Small joint effusion. No suspicious soft tissue calcifications. 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 no other treatment tried besides one injection in her knee over 5 years ago that didn't help much. Treatment Goals Patient/Caregiver Goals Get to where she doesn't have LB/hip pain, get her legs stronger so she can be more stable w/knees, be able to increase stamina PT-OP-C Subjective Start: 12/06/21 17:49 Freq: Status: Active Protocol: Document 01/15/22 10:34 [facility] (Rec: 01/15/22 11:19 [facility] [id number]) OP-PT Subjective Patient Comments Patient Comments Pt reports she did some walking w/her brother here. She did stop and take a break on a bench occ. Some days her knees are painful all day and other days it feels good. Sciatic pain is improved. Patient Reported Progress Improving PT-OP-G Mobility & Gait Start: 12/06/21 17:49 Freq: Status: Active Protocol: Document 12/10/21 12:12 [facility] (Rec: 12/10/21 13:49 [facility] [id number]) OP Gait Assessment Comments Gait Comments no UE motion, dec trunk motion , dec push off B, lat lean b PT-OP-J Posture/Palpation/Skin Start: 12/06/21 17:49 Freq: Status: Active Protocol: Document 12/10/21 12:12 [facility] (Rec: 12/10/21 13:49 [facility] [id number]) Posture Evaluation [facility] Postural Classification System [facility] Postural Classifications Posterior/Anterior Vertebral Compression Test 1 Lumbar Protective Mechanism Left AP 0 Lumbar Protective Mechanism Right AP 0 Lumbar Protective Mechanism Left PA 1 Lumbar Protective Mechanism Right PA 3 Comments Posture Comments SLS 10 sec L, 9 sec R w/ excessive UE motion;B kne evalgus, forefoot varus, rearfoot valgus; min R greater troch higher, R iliac crest higher PT-OP-K Range of Motion Start: 12/06/21 17:49 Freq: Status: Active Protocol: Document 12/10/21 12:12 [facility] (Rec: 12/10/21 13:49 [facility] [id number]) Lumbar Spine Range of Motion Lumbar Spine Active Degrees Rotation Left 48 Rotation Right 45 Comments 1 in above patella w/lumbar only, 2 in above ankle flex, ext about 80%; SB equal B good ROM Knee Goniometric Range of Motion Knee Right Flexion Active (degrees) 90 Extension Active (degrees) 10 Left Flexion Active (degrees) 113 Extension Active (degrees) 10 PT-OP-L Special Tests Start: 12/06/21 17:49 Freq: Status: Active Protocol: Document 12/10/21 12:12 [facility] (Rec: 12/10/21 13:49 [facility] [id number]) Special Tests Lumbar Spine Special Tests Chay's Test Results neg B Milind Test Results quads tight B Straight Leg Raise Test Results 91 L; 68 R Slump Test Results tightness R PT-OP-M Strength Start: 12/06/21 17:49 Freq: Status: Active Protocol: Document 12/10/21 12:12 [facility] (Rec: 12/10/21 13:49 [facility] [id number]) Hip Strength Hip Manual Muscle Testing Right Flexion (L2) 4- Good- Extension (S1) 3- Fair- Abduction 3 Fair Adduction 4+ Good+ External Rotation 3+ Fair+ Internal Rotation 4- Good- Comments crepitis B w/ER Left Flexion (L2) 4- Good- Extension (S1) 3+ Fair+ Abduction 3 Fair Adduction 4 Good External Rotation 3+ Fair+ Internal Rotation 4- Good- Knee Strength Knee Manual Muscle Testing Right Flexion (S2) 4+ Good+ Extension (L3) 4 Good Left Flexion (S2) 4+ Good+ Extension (L3) 4 Good Comments significant crepetitis w/ext B Ankle/Foot Strength Ankle and Foot Manual Muscle Testing Right Dorsiflexion (L4) 4 Good Plantarflexion (S1) 4- Good- Comments 13 heel raises Left Dorsiflexion (L4) 4 Good Plantarflexion (S1) 4- Good- Comments crepitis B knees w/DF: 13 heel raises PT-OP-Q Treatments Start: 12/06/21 17:49 Freq: Status: Active Protocol: Document 01/15/22 10:34 [facility] (Rec: 01/15/22 11:19 [facility] [id number]) Cardio Equipment Bicycle (Upright) Duration (Minutes) 5 Resistance 8 Seat Position 8 Gym Equipment Shuttle Recovery Unilateral Squats Resistance 50# Shuttle Recovery Platform Stable Reps/Time 10 ea Therapeutic Exercises Standing Exercises hip hike Side bilateral Equipment Used on step w/rail Reps/Minutes 10 ea step down Side bilateral Equipment Used 4 in step and rail prn Reps/Minutes 10 step up Standing Exercise Name w/alt march Side bilateral Equipment Used 8 in step Reps/Minutes 12 Comments VC for knee Manual Therapy Treatment Soft Tissue Mobilization ITB Body Location R Mobilization Type Strumming Intensity/Depth Moderate Joint Mobilizations tibfib Joint R distraction & PA FM tibfem Comments PA R FM PT-OP-T Assessment and Plan Start: 12/06/21 17:49 Freq: Status: Active Protocol: Document 01/15/22 10:34 [facility] (Rec: 01/15/22 11:19 [facility] [id number]) Physical Therapy Assessment Goals activity tolerance Short Term Goal (STG) Pt will be able to comfortably do sit to stand after sitting extended w/o inc pain STG Duration 02/09 Banquet Chef Goal (LTG) Pt will be able to stand as needed and move around house without requiring mult rest breaks in day. LTG Duration 03/11 strength Short Term Goal (STG) Pt will be indep w/HEP for strength, ROM, balance and pain relief STG Duration 02/08 Banquet Chef Goal (LTG) Pt will score at least 4+/5 on MMT LEs and at least 3/5 on LPM in all planes to show improved stability. LTG Duration 03/11 Three Impairment HECTOR 19/50 Impairment PF strength 3/5 Short Term Goal (STG) Pt will improve score of HECTOR to no greater than 13/50 to show improved functional ability. STG Duration 01/29 [facility] Goal (LTG) Pt will improve score of HECTOR to no greater than 4/50 to show improved functional ability. LTG Duration 03/11 Two Impairment stairs step to Impairment Uses substitute muscles to get a PF contraction. Short Term Goal (STG) Pt will be able to go up stairs reciprocally w/o rail w /o inc pain. STG Duration 01/29 [facility] Goal (LTG) Pt will be able to go down stairs reciprocally w/o rail w /o inc pain. LTG Duration 03/11 Assessment Summary Assessment Improved R knee ROM from 105 prior to manual to 110 after manual. L knee shows imrpoved ROM overall to 125 flex today. She is doing better w/ exercseis but still is very weak in quads and glutes. Physical Therapy Plan Frequency and Duration Frequency of Treatment 2x/Week Plan of Care Start Date 12/10/21 Plan of Care End Date 03/11/22 Next Visit Focus/Plan Next Note Type Treatment Note Next Visit Plan cont to work hips and knee joint mobility manually; cont to work on quad and glute strength
--- NOTE | 2022-01-23 11:45 | PT.OTN ---
Current Diagnoses Pain in right knee (01/23/22) Pain in left knee (01/23/22) Lumbago with sciatica, right side (01/23/22) Abnormal posture (01/23/22) Weakness (01/23/22) Physical Therapy Treatment Note PT-OP-A Visit Information Start: 12/06/21 17:49 Freq: Status: Active Protocol: Document 01/23/22 11:45 SAK (Rec: 01/24/22 12:51 SAK [id number]) Out-Patient Physical Therapy Visit Information Visit Information Visit Type Treatment Note Visit Note 11/07 Visit Start Time 11:15 Visit Stop Time 12:00 Total Visit Minutes 45 Visit Number 9 Number of GEAR CODING MACHINE OPERATOR Visits 0 PT-OP-B Current Condition Start: 12/06/21 17:49 Freq: Status: Active Protocol: Document 12/10/21 12:12 [facility] (Rec: 12/10/21 13:49 [facility] [id number]) Current Condition History of Current Condition Current Complaints B knee pain & sciatic pain R buttocks and down leg History of Current Condition Pt reports B knee pain for years without injuries but arthritis and pt notices she is knock-kneed. Notices her feet are off from that. Pt reports sciatic pain has been going on about 10 months. It was around when [facility] moved here . Ant lat thigh pain started w /move and she had a cramp in lat quad region after. Pt reprots buttocks and leg pain that is worst at night. She has to roll back and forth at night. She is getting a sleep study in Dec. Pt erports she has to take ibuprfoen often d/ t pain more so the last 6 months or so. Can only be active for so long and then has to put her feet up. 1 year ago, she had a home gym and was working with a resident athletic trainer 2x/ week. This last year, she feels like she is falling apart. She has a lot going on, so she hasn't done as much exercise and self care. Reports she has recently irritated her L shoulder and things she lifted something sideways that was too heavy and now can;t abd or IR and it pops occ. Prior Treatments and Tests L knee xray: Bones: No fractures or dislocations. Moderate narrowing of the lateral compartment joint space with prominent osteophytosis and sclerosis of the lateral tibial plateau. The medial and patellofemoral joint spaces are maintained but demonstrate periarticular osteophytosis. Soft tissues: Small joint effusion. No suspicious soft tissue calcifications. 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 no other treatment tried besides one injection in her knee over 5 years ago that didn't help much. Treatment Goals Patient/Caregiver Goals Get to where she doesn't have LB/hip pain, get her legs stronger so she can be more stable w/knees, be able to increase stamina PT-OP-C Subjective Start: 12/06/21 17:49 Freq: Status: Active Protocol: Document 01/23/22 11:45 SAK (Rec: 01/24/22 12:51 SAK [id number]) OP-PT Subjective Patient Comments Patient Comments Good days and bad days, excited to try aquatic PT. Has done aquatic aerobics previously PT-OP-G Mobility & Gait Start: 12/06/21 17:49 Freq: Status: Active Protocol: Document 12/10/21 12:12 [facility] (Rec: 12/10/21 13:49 [facility] [id number]) OP Gait Assessment Comments Gait Comments no UE motion, dec trunk motion , dec push off B, lat lean b PT-OP-J Posture/Palpation/Skin Start: 12/06/21 17:49 Freq: Status: Active Protocol: Document 12/10/21 12:12 [facility] (Rec: 12/10/21 13:49 [facility] [id number]) Posture Evaluation [facility] Postural Classification System Becki Postural Classifications Posterior/Anterior Vertebral Compression Test 1 Lumbar Protective Mechanism Left AP 0 Lumbar Protective Mechanism Right AP 0 Lumbar Protective Mechanism Left PA 1 Lumbar Protective Mechanism Right PA 3 Comments Posture Comments SLS 10 sec L, 9 sec R w/ excessive UE motion;B kne evalgus, forefoot varus, rearfoot valgus; min R greater troch higher, R iliac crest higher PT-OP-K Range of Motion Start: 12/06/21 17:49 Freq: Status: Active Protocol: Document 12/10/21 12:12 [facility] (Rec: 12/10/21 13:49 [facility] [id number]) Lumbar Spine Range of Motion Lumbar Spine Active Degrees Rotation Left 48 Rotation Right 45 Comments 1 in above patella w/lumbar only, 2 in above ankle flex, ext about 80%; SB equal B good ROM Knee Goniometric Range of Motion Knee Right Flexion Active (degrees) 90 Extension Active (degrees) 10 Left Flexion Active (degrees) 113 Extension Active (degrees) 10 PT-OP-L Special Tests Start: 12/06/21 17:49 Freq: Status: Active Protocol: Document 12/10/21 12:12 [facility] (Rec: 12/10/21 13:49 [facility] [id number]) Special Tests Lumbar Spine Special Tests Chay's Test Results neg B Milind Test Results quads tight B Straight Leg Raise Test Results 91 L; 68 R Slump Test Results tightness R PT-OP-M Strength Start: 12/06/21 17:49 Freq: Status: Active Protocol: Document 12/10/21 12:12 [facility] (Rec: 12/10/21 13:49 [facility] [id number]) Hip Strength Hip Manual Muscle Testing Right Flexion (L2) 4- Good- Extension (S1) 3- Fair- Abduction 3 Fair Adduction 4+ Good+ External Rotation 3+ Fair+ Internal Rotation 4- Good- Comments crepitis B w/ER Left Flexion (L2) 4- Good- Extension (S1) 3+ Fair+ Abduction 3 Fair Adduction 4 Good External Rotation 3+ Fair+ Internal Rotation 4- Good- Knee Strength Knee Manual Muscle Testing Right Flexion (S2) 4+ Good+ Extension (L3) 4 Good Left Flexion (S2) 4+ Good+ Extension (L3) 4 Good Comments significant crepetitis w/ext B Ankle/Foot Strength Ankle and Foot Manual Muscle Testing Right Dorsiflexion (L4) 4 Good Plantarflexion (S1) 4- Good- Comments 13 heel raises Left Dorsiflexion (L4) 4 Good Plantarflexion (S1) 4- Good- Comments crepitis B knees w/DF: 13 heel raises PT-OP-Q Treatments Start: 12/06/21 17:49 Freq: Status: Active Protocol: Document 01/15/22 10:34 [facility] (Rec: 01/15/22 11:19 [facility] [id number]) Cardio Equipment Bicycle (Upright) Duration (Minutes) 5 Resistance 8 Seat Position 8 Gym Equipment Shuttle Recovery Unilateral Squats Resistance 50# Shuttle Recovery Platform Stable Reps/Time 10 ea Therapeutic Exercises Standing Exercises hip hike Side bilateral Equipment Used on step w/rail Reps/Minutes 10 ea step down Side bilateral Equipment Used 4 in step and rail prn Reps/Minutes 10 step up Standing Exercise Name w/alt march Side bilateral Equipment Used 8 in step Reps/Minutes 12 Comments VC for knee Manual Therapy Treatment Soft Tissue Mobilization ITB Body Location R Mobilization Type Strumming Intensity/Depth Moderate Joint Mobilizations tibfib Joint R distraction & PA FM tibfem Comments PA R FM PT-OP-S Aquatic Treatment Start: 01/24/22 12:48 Freq: Status: Active Protocol: Document 01/23/22 11:45 [facility] (Rec: 01/24/22 12:56 [facility] [id number]) Aquatics Treatment Pool Entry/Exit Pool Entry/Exit Method Stairs Assistance Standby Assistance,Verbal Cues Water Walking straight leg may Water Level Chest Level Level of Assistance Verbal Cues march Water Level Chest Level Level of Assistance Verbal Cues side Water Level Chest Level Level of Assistance Verbal Cues backward Water Level Chest Level Level of Assistance Verbal Cues forward Water Level Chest Level Level of Assistance Verbal Cues Lower Extremity Exercises hamstring curl Body Position Standing Water Level Chest Level Reps/Duration 10x2 Comments with hip flex 90 circles Body Position Standing Water Level Chest Level Reps/Duration 10x CW, 10x CCW Comments cues for alignment and core engagmeent 4 way hip Body Position Standing Water Level Chest Level Reps/Duration 10x ea Comments cues for alignment, core angagement Lower Extremity Stretches hip flexor Body Position Standing Water Level [place] Comments at wall quads Body Position Standing Water Level Chest Level Comments foot on chair ITB Body Position Standing Water Level Chest Level Equipment Small Noodle Reps/Duration 2x30 HS Body Position Standing Water Level Chest Level Equipment Small Noodle Reps/Duration 2x30 Spinal Exercises wall squat DLS Details with hor ab/ad, flex/ext UE's unil and isael Body Position Sitting Water Level Neck Level Reps/Duration 10x ea Comments cues for core engagement [place] Activities [place] Activities Bicycle,Cross Country,Running Equipment flotation belt Duration 10 min Comments cues for core engagement, alignment PT-OP-T Assessment and Plan Start: 12/06/21 17:49 Freq: Status: Active Protocol: Document 01/23/22 11:45 [facility] (Rec: 01/24/22 12:51 [facility] [id number]) Physical Therapy Assessment Goals activity tolerance Short Term Goal (STG) Pt will be able to comfortably do sit to stand after sitting extended w/o inc pain STG Duration 02/09 Fdc Goal (LTG) Pt will be able to stand as needed and move around house without requiring mult rest breaks in day. LTG Duration 03/11 strength Short Term Goal (STG) Pt will be indep w/HEP for strength, ROM, balance and pain relief STG Duration 02/08 Fdc Goal (LTG) Pt will score at least 4+/5 on MMT LEs and at least 3/5 on LPM in all planes to show improved stability. LTG Duration 03/11 Three Impairment HECTOR 19/50 Impairment PF strength 3/5 Short Term Goal (STG) Pt will improve score of HECTOR to no greater than 13/50 to show improved functional ability. STG Duration 01/29 Hard Tile Setter Apprentice Goal (LTG) Pt will improve score of HECTOR to no greater than 4/50 to show improved functional ability. LTG Duration 03/11 Two Impairment stairs step to Impairment Uses substitute muscles to get a PF contraction. Short Term Goal (STG) Pt will be able to go up stairs reciprocally w/o rail w /o inc pain. STG Duration 01/29 Hard Tile Setter Apprentice Goal (LTG) Pt will be able to go down stairs reciprocally w/o rail w /o inc pain. LTG Duration 03/11 Assessment Summary Assessment Good tolerance for aquatic therapy with moderate cues for postural alignment, core stab , LE alignment. Denied increase in pain. Physical Therapy Plan Frequency and Duration Frequency of Treatment 2x/Week Plan of Care Start Date 12/10/21 Plan of Care End Date 03/11/22 Next Visit Focus/Plan Next Note Type Treatment Note Next Visit Plan cont to work hips and knee joint mobility manually; cont to work on quad and glute strength
--- NOTE | 2022-01-25 11:37 | PT.OTN ---
Current Diagnoses Pain in right knee (01/25/22) Pain in left knee (01/25/22) Lumbago with sciatica, right side (01/25/22) Abnormal posture (01/25/22) Weakness (01/25/22) Physical Therapy Treatment Note PT-OP-A Visit Information Start: 12/06/21 17:49 Freq: Status: Active Protocol: Document 01/25/22 10:53 [facility] (Rec: 01/25/22 11:36 [facility] [id number]) Out-Patient Physical Therapy Visit Information Visit Information Visit Type Treatment Note Visit Note 12/08 Visit Start Time 10:53 Visit Stop Time 11:31 Total Visit Minutes 38 Visit Number 10 Number of ASBESTOS ABATEMENT TECHNICIAN Visits 1 PT-OP-B Current Condition Start: 12/06/21 17:49 Freq: Status: Active Protocol: Document 12/10/21 12:12 [facility] (Rec: 12/10/21 13:49 [facility] [id number]) Current Condition History of Current Condition Current Complaints B knee pain & sciatic pain R buttocks and down leg History of Current Condition Pt reports B knee pain for years without injuries but arthritis and pt notices she is knock-kneed. Notices her feet are off from that. Pt reports sciatic pain has been going on about 10 months. It was around when [facility] moved here . Ant lat thigh pain started w /move and she had a cramp in lat quad region after. Pt reprots buttocks and leg pain that is worst at night. She has to roll back and forth at night. She is getting a sleep study in Dec. Pt erports she has to take ibuprfoen often d/ t pain more so the last 6 months or so. Can only be active for so long and then has to put her feet up. 1 year ago, she had a home gym and was working with a computer technology trainer 2x/ week. This last year, she feels like she is falling apart. She has a lot going on, so she hasn't done as much exercise and self care. Reports she has recently irritated her L shoulder and things she lifted something sideways that was too heavy and now can;t abd or IR and it pops occ. Prior Treatments and Tests L knee xray: Bones: No fractures or dislocations. Moderate narrowing of the lateral compartment joint space with prominent osteophytosis and sclerosis of the lateral tibial plateau. The medial and patellofemoral joint spaces are maintained but demonstrate periarticular osteophytosis. Soft tissues: Small joint effusion. No suspicious soft tissue calcifications. 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 no other treatment tried besides one injection in her knee over 5 years ago that didn't help much. Treatment Goals Patient/Caregiver Goals Get to where she doesn't have LB/hip pain, get her legs stronger so she can be more stable w/knees, be able to increase stamina PT-OP-C Subjective Start: 12/06/21 17:49 Freq: Status: Active Protocol: Document 01/25/22 10:53 [facility] (Rec: 01/25/22 11:36 [facility] [id number]) OP-PT Subjective Patient Comments Patient Comments Pt reports she had her first pool therapy and loved it. Pt decided to use Silver [employer]neakers to join the pool and gym. Pt is using both legs to go up each step now recip and thinks she is getting stronger that way. Pt admits to not doing HEP completely. Sciatica hurt last night in bed but is fine today. PT-OP-G Mobility & Gait Start: 12/06/21 17:49 Freq: Status: Active Protocol: Document 12/10/21 12:12 [facility] (Rec: 12/10/21 13:49 [facility] [id number]) OP Gait Assessment Comments Gait Comments no UE motion, dec trunk motion , dec push off B, lat lean b PT-OP-J Posture/Palpation/Skin Start: 12/06/21 17:49 Freq: Status: Active Protocol: Document 12/10/21 12:12 [facility] (Rec: 12/10/21 13:49 [facility] [id number]) Posture Evaluation Becki Postural Classification System Becki Postural Classifications Posterior/Anterior Vertebral Compression Test 1 Lumbar Protective Mechanism Left AP 0 Lumbar Protective Mechanism Right AP 0 Lumbar Protective Mechanism Left PA 1 Lumbar Protective Mechanism Right PA 3 Comments Posture Comments SLS 10 sec L, 9 sec R w/ excessive UE motion;B kne evalgus, forefoot varus, rearfoot valgus; min R greater troch higher, R iliac crest higher PT-OP-K Range of Motion Start: 12/06/21 17:49 Freq: Status: Active Protocol: Document 12/10/21 12:12 [facility] (Rec: 12/10/21 13:49 [facility] [id number]) Lumbar Spine Range of Motion Lumbar Spine Active Degrees Rotation Left 48 Rotation Right 45 Comments 1 in above patella w/lumbar only, 2 in above ankle flex, ext about 80%; SB equal B good ROM Knee Goniometric Range of Motion Knee Right Flexion Active (degrees) 90 Extension Active (degrees) 10 Left Flexion Active (degrees) 113 Extension Active (degrees) 10 PT-OP-L Special Tests Start: 12/06/21 17:49 Freq: Status: Active Protocol: Document 12/10/21 12:12 [facility] (Rec: 12/10/21 13:49 [facility] [id number]) Special Tests Lumbar Spine Special Tests Chay's Test Results neg B Milind Test Results quads tight B Straight Leg Raise Test Results 91 L; 68 R Slump Test Results tightness R PT-OP-M Strength Start: 12/06/21 17:49 Freq: Status: Active Protocol: Document 12/10/21 12:12 [facility] (Rec: 12/10/21 13:49 [facility] [id number]) Hip Strength Hip Manual Muscle Testing Right Flexion (L2) 4- Good- Extension (S1) 3- Fair- Abduction 3 Fair Adduction 4+ Good+ External Rotation 3+ Fair+ Internal Rotation 4- Good- Comments crepitis B w/ER Left Flexion (L2) 4- Good- Extension (S1) 3+ Fair+ Abduction 3 Fair Adduction 4 Good External Rotation 3+ Fair+ Internal Rotation 4- Good- Knee Strength Knee Manual Muscle Testing Right Flexion (S2) 4+ Good+ Extension (L3) 4 Good Left Flexion (S2) 4+ Good+ Extension (L3) 4 Good Comments significant crepetitis w/ext B Ankle/Foot Strength Ankle and Foot Manual Muscle Testing Right Dorsiflexion (L4) 4 Good Plantarflexion (S1) 4- Good- Comments 13 heel raises Left Dorsiflexion (L4) 4 Good Plantarflexion (S1) 4- Good- Comments crepitis B knees w/DF: 13 heel raises PT-OP-Q Treatments Start: 12/06/21 17:49 Freq: Status: Active Protocol: Document 01/25/22 10:53 NB (Rec: 01/25/22 11:36 [facility] [id number]) Cardio Equipment Bicycle (Upright) Duration (Minutes) 7 Resistance 8 Seat Position 8 Gym Equipment Shuttle Recovery Unilateral Squats Resistance 50# Shuttle Recovery Platform Stable Reps/Time 2x10 ea Bilateral Squats Resistance 75# Shuttle Recovery Platform Stable Reps/Time 2x15, cue for knee alignment Therapeutic Exercises Supine Exercises Bridging Supine Exercise Name 1. w/ ball squeeze 2. Lvl 2 Tb at knees (HEP) Equipment Used blue ball, Lvl 2 Tb Reps/Minutes 10 x 3-5 SH Comments cues for glute squeeze, slow eccentric Pififormis stretch Side bilateral Equipment Used w/strap Reps/Minutes 2 x 45s Standing Exercises hip hike Side bilateral Equipment Used on step w/rail Reps/Minutes 10 ea sit to stand Side bilateral Reps/Minutes 6 Comments improved control, cues for slow eccentric PT-OP-R Modalities Start: 12/06/21 17:49 Freq: Status: Active Protocol: Document 01/25/22 10:53 NBM (Rec: 01/25/22 11:36 NBM [id number]) Hot Pack/Cold Pack Treatment Cold Pack Location lumbar Patient Position Hooklying Treatment Duration (minutes) 10 Patient Tolerance Good PT-OP-S Aquatic Treatment Start: 01/24/22 12:48 Freq: Status: Active Protocol: Document 01/23/22 11:45 SAK (Rec: 01/24/22 12:56 SAK [id number]) Aquatics Treatment Pool Entry/Exit Pool Entry/Exit Method Stairs Assistance Standby Assistance,Verbal Cues Water Walking straight leg march Water Level Chest Level Level of Assistance Verbal Cues march Water Level Chest Level Level of Assistance Verbal Cues side Water Level Chest Level Level of Assistance Verbal Cues backward Water Level Chest Level Level of Assistance Verbal Cues forward Water Level Chest Level Level of Assistance Verbal Cues Lower Extremity Exercises hamstring curl Body Position Standing Water Level Chest Level Reps/Duration 10x2 Comments with hip flex 90 circles Body Position Standing Water Level Chest Level Reps/Duration 10x CW, 10x CCW Comments cues for alignment and core engagmeent 4 way hip Body Position Standing Water Level Chest Level Reps/Duration 10x ea Comments cues for alignment, core angagement Lower Extremity Stretches hip flexor Body Position Standing Water Level [place] Comments at wall quads Body Position Standing Water Level Chest Level Comments foot on chair ITB Body Position Standing Water Level Chest Level Equipment Small Noodle Reps/Duration 2x30 HS Body Position Standing Water Level Chest Level Equipment Small Noodle Reps/Duration 2x30 Spinal Exercises wall squat DLS Details with hor ab/ad, flex/ext UE's unil and isael Body Position Sitting Water Level Neck Level Reps/Duration 10x ea Comments cues for core engagement [place] Activities [place] Activities Bicycle,Cross Country,Running Equipment flotation belt Duration 10 min Comments cues for core engagement, alignment PT-OP-T Assessment and Plan Start: 12/06/21 17:49 Freq: Status: Active Protocol: Document 01/25/22 10:53 NBM (Rec: 01/25/22 11:36 NBM [id number]) Physical Therapy Assessment Goals activity tolerance Short Term Goal (STG) Pt will be able to comfortably do sit to stand after sitting extended w/o inc pain STG Duration 02/09 Halfway Goal (LTG) Pt will be able to stand as needed and move around house without requiring mult rest breaks in day. LTG Duration 03/11 strength Short Term Goal (STG) Pt will be indep w/HEP for strength, ROM, balance and pain relief STG Duration 02/08 E/M Engineer Goal (LTG) Pt will score at least 4+/5 on MMT LEs and at least 3/5 on LPM in all planes to show improved stability. LTG Duration 03/11 Three Impairment HECTOR 19/50 Impairment PF strength 3/5 Short Term Goal (STG) Pt will improve score of HECTOR to no greater than 13/50 to show improved functional ability. STG Duration 01/29 Halfway Goal (LTG) Pt will improve score of HECTOR to no greater than 4/50 to show improved functional ability. LTG Duration 03/11 Two Impairment stairs step to Impairment Uses substitute muscles to get a PF contraction. Short Term Goal (STG) Pt will be able to go up stairs reciprocally w/o rail w /o inc pain. STG Duration 01/29 Halfway Goal (LTG) Pt will be able to go down stairs reciprocally w/o rail w /o inc pain. LTG Duration 03/11 Assessment Summary Assessment Pt tolerates increased sets on shuttle recovery from 1 to 2 sets bilateral and unilateral. Pt demonstrates improved self -awareness of B knee alignment with self-correction throughout threatment. Pt requires cues for controlled eccentric with sit to stand which improves with cue to count to 5 before allowing glutes to contact seat. Physical Therapy Plan Frequency and Duration Frequency of Treatment 2x/Week Plan of Care Start Date 12/10/21 Plan of Care End Date 03/11/22 Therapeutic Interventions Therapeutic Interventions Aquatic Therapy,Balance Training,Gait Training,Home Exercise Program,Joint Mobilizations,Manual Therapy, Neuromuscular Re-education, Orthotic/Prosthetic Management ,Patient/Caregiver Education, Self-Care/Home Management,Soft Tissue Mobilization,Taping, Therapeutic Activities, Therapeutic Exercises Modalities Cold Pack/Ice Massage,Electric Stimulation,Hot Packs, Traction- Mechanical, Ultrasound Next Visit Focus/Plan Next Note Type Treatment Note Next Visit Plan cont to work hips and knee joint mobility manually; cont to work on quad and glute strength
--- NOTE | 2022-01-28 15:05 | PT.OTN ---
Current Diagnoses Pain in right knee (01/28/22) Pain in left knee (01/28/22) Lumbago with sciatica, right side (01/28/22) Abnormal posture (01/28/22) Weakness (01/28/22) Physical Therapy Treatment Note PT-OP-A Visit Information Start: 12/06/21 17:49 Freq: Status: Active Protocol: Document 01/28/22 14:50 LJ (Rec: 01/28/22 15:05 LJ [id number]) Out-Patient Physical Therapy Visit Information Visit Information Visit Type Aquatic Treatment Note Visit Start Time 11:00 Visit Stop Time 11:45 Total Visit Minutes 45 Visit Number 11 Number of INDEPENDENT CROP CONSULTANT Visits 2 PT-OP-B Current Condition Start: 12/06/21 17:49 Freq: Status: Active Protocol: Document 12/10/21 12:12 [facility] (Rec: 12/10/21 13:49 [facility] [id number]) Current Condition History of Current Condition Current Complaints B knee pain & sciatic pain R buttocks and down leg History of Current Condition Pt reports B knee pain for years without injuries but arthritis and pt notices she is knock-kneed. Notices her feet are off from that. Pt reports sciatic pain has been going on about 10 months. It was around when [facility] moved here . Ant lat thigh pain started w /move and she had a cramp in lat quad region after. Pt reprots buttocks and leg pain that is worst at night. She has to roll back and forth at night. She is getting a sleep study in Dec. Pt erports she has to take ibuprfoen often d/ t pain more so the last 6 months or so. Can only be active for so long and then has to put her feet up. 1 year ago, she had a home gym and was working with a whale trainer 2x/ week. This last year, she feels like she is falling apart. She has a lot going on, so she hasn't done as much exercise and self care. Reports she has recently irritated her L shoulder and things she lifted something sideways that was too heavy and now can;t abd or IR and it pops occ. Prior Treatments and Tests L knee xray: Bones: No fractures or dislocations. Moderate narrowing of the lateral compartment joint space with prominent osteophytosis and sclerosis of the lateral tibial plateau. The medial and patellofemoral joint spaces are maintained but demonstrate periarticular osteophytosis. Soft tissues: Small joint effusion. No suspicious soft tissue calcifications. 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 no other treatment tried besides one injection in her knee over 5 years ago that didn't help much. Treatment Goals Patient/Caregiver Goals Get to where she doesn't have LB/hip pain, get her legs stronger so she can be more stable w/knees, be able to increase stamina PT-OP-C Subjective Start: 12/06/21 17:49 Freq: Status: Active Protocol: Document 01/28/22 14:50 LJ (Rec: 01/28/22 15:05 LJ [id number]) OP-PT Subjective Patient Comments Patient Comments Pt reports she is feeling much better and has lost weight, gained strength, and she also sees her balance improving. She hasn't been experiencing pain like before she began therapy. PT-OP-G Mobility & Gait Start: 12/06/21 17:49 Freq: Status: Active Protocol: Document 12/10/21 12:12 [facility] (Rec: 12/10/21 13:49 [facility] [id number]) OP Gait Assessment Comments Gait Comments no UE motion, dec trunk motion , dec push off B, lat lean b PT-OP-J Posture/Palpation/Skin Start: 12/06/21 17:49 Freq: Status: Active Protocol: Document 12/10/21 12:12 [facility] (Rec: 12/10/21 13:49 [facility] [id number]) Posture Evaluation [facility] Postural Classification System [facility] Postural Classifications Posterior/Anterior Vertebral Compression Test 1 Lumbar Protective Mechanism Left AP 0 Lumbar Protective Mechanism Right AP 0 Lumbar Protective Mechanism Left PA 1 Lumbar Protective Mechanism Right PA 3 Comments Posture Comments SLS 10 sec L, 9 sec R w/ excessive UE motion;B kne evalgus, forefoot varus, rearfoot valgus; min R greater troch higher, R iliac crest higher PT-OP-K Range of Motion Start: 12/06/21 17:49 Freq: Status: Active Protocol: Document 12/10/21 12:12 [facility] (Rec: 12/10/21 13:49 [facility] [id number]) Lumbar Spine Range of Motion Lumbar Spine Active Degrees Rotation Left 48 Rotation Right 45 Comments 1 in above patella w/lumbar only, 2 in above ankle flex, ext about 80%; SB equal B good ROM Knee Goniometric Range of Motion Knee Right Flexion Active (degrees) 90 Extension Active (degrees) 10 Left Flexion Active (degrees) 113 Extension Active (degrees) 10 PT-OP-L Special Tests Start: 12/06/21 17:49 Freq: Status: Active Protocol: Document 12/10/21 12:12 [facility] (Rec: 12/10/21 13:49 [facility] [id number]) Special Tests Lumbar Spine Special Tests Chay's Test Results neg B Milind Test Results quads tight B Straight Leg Raise Test Results 91 L; 68 R Slump Test Results tightness R PT-OP-M Strength Start: 12/06/21 17:49 Freq: Status: Active Protocol: Document 12/10/21 12:12 [facility] (Rec: 12/10/21 13:49 [facility] [id number]) Hip Strength Hip Manual Muscle Testing Right Flexion (L2) 4- Good- Extension (S1) 3- Fair- Abduction 3 Fair Adduction 4+ Good+ External Rotation 3+ Fair+ Internal Rotation 4- Good- Comments crepitis B w/ER Left Flexion (L2) 4- Good- Extension (S1) 3+ Fair+ Abduction 3 Fair Adduction 4 Good External Rotation 3+ Fair+ Internal Rotation 4- Good- Knee Strength Knee Manual Muscle Testing Right Flexion (S2) 4+ Good+ Extension (L3) 4 Good Left Flexion (S2) 4+ Good+ Extension (L3) 4 Good Comments significant crepetitis w/ext B Ankle/Foot Strength Ankle and Foot Manual Muscle Testing Right Dorsiflexion (L4) 4 Good Plantarflexion (S1) 4- Good- Comments 13 heel raises Left Dorsiflexion (L4) 4 Good Plantarflexion (S1) 4- Good- Comments crepitis B knees w/DF: 13 heel raises PT-OP-Q Treatments Start: 12/06/21 17:49 Freq: Status: Active Protocol: Document 01/25/22 10:53 NBM (Rec: 01/25/22 11:36 NB [id number]) Cardio Equipment Bicycle (Upright) Duration (Minutes) 7 Resistance 8 Seat Position 8 Gym Equipment Shuttle Recovery Unilateral Squats Resistance 50# Shuttle Recovery Platform Stable Reps/Time 2x10 ea Bilateral Squats Resistance 75# Shuttle Recovery Platform Stable Reps/Time 2x15, cue for knee alignment Therapeutic Exercises Supine Exercises Bridging Supine Exercise Name 1. w/ ball squeeze 2. Lvl 2 Tb at knees (HEP) Equipment Used blue ball, Lvl 2 Tb Reps/Minutes 10 x 3-5 SH Comments cues for glute squeeze, slow eccentric Pififormis stretch Side bilateral Equipment Used w/strap Reps/Minutes 2 x 45s Standing Exercises hip hike Side bilateral Equipment Used on step w/rail Reps/Minutes 10 ea sit to stand Side bilateral Reps/Minutes 6 Comments improved control, cues for slow eccentric PT-OP-R Modalities Start: 12/06/21 17:49 Freq: Status: Active Protocol: Document 01/25/22 10:53 NBM (Rec: 01/25/22 11:36 NBM [id number]) Hot Pack/Cold Pack Treatment Cold Pack Location lumbar Patient Position Hooklying Treatment Duration (minutes) 10 Patient Tolerance Good PT-OP-S Aquatic Treatment Start: 01/24/22 12:48 Freq: Status: Active Protocol: Document 01/28/22 14:50 LJ (Rec: 01/28/22 15:05 LJ [id number]) Aquatics Treatment Pool Entry/Exit Pool Entry/Exit Method Stairs Assistance Independent Water Walking straight leg march Water Level Chest Level Level of Assistance Verbal Cues march Water Level Chest Level Comments reaching to opp side side Water Level Chest Level Comments HABD/HADD backward Water Level Chest Level forward Water Level Chest Level Comments past pace w/cues to lift chest push pelvis forward Lower Extremity Exercises 4 way hip Body Position Standing Water Level Chest Level Reps/Duration 10x ea Comments cues for alignment, core angagement Lower Extremity Stretches adductors Details at wall Body Position Standing Water Level Waist Level Equipment noodle Reps/Duration 2x30 Comments therapist assist hip flexor Body Position Standing Water Level [place] Comments at wall quads Body Position Standing Water Level Chest Level Comments therapist assist ITB Body Position Standing Water Level Chest Level Equipment Small Noodle Reps/Duration 2x30 HS Body Position Standing Water Level Chest Level Equipment Small Noodle Reps/Duration 2x30 Spinal Exercises wonderboard Body Position Sitting Reps/Duration 6 min Comments static and dynamic; progressed to kneeling [place] Activities [place] Activities Bicycle,Bicycle Backwards, Cross Country,Running,Hip Abduction/Adduction Other Activities pendulum shoot thru-full and half fwd burpees x15 VC for execution [employer] body swing Equipment flotation belt Duration 15 min Comments cues for core engagement, alignment PT-OP-T Assessment and Plan Start: 12/06/21 17:49 Freq: Status: Active Protocol: Document 01/28/22 14:50 [facility] (Rec: 01/28/22 15:05 LJ [id number]) Physical Therapy Assessment Goals activity tolerance Short Term Goal (STG) Pt will be able to comfortably do sit to stand after sitting extended w/o inc pain STG Duration 02/09 Electronics Production Supervisor Goal (LTG) Pt will be able to stand as needed and move around house without requiring mult rest breaks in day. LTG Duration 03/11 strength Short Term Goal (STG) Pt will be indep w/HEP for strength, ROM, balance and pain relief STG Duration 02/08 Electronics Production Supervisor Goal (LTG) Pt will score at least 4+/5 on MMT LEs and at least 3/5 on LPM in all planes to show improved stability. LTG Duration 03/11 Three Impairment HECTOR 19/50 Impairment PF strength 3/5 Short Term Goal (STG) Pt will improve score of HECTOR to no greater than 13/50 to show improved functional ability. STG Duration 01/29 Halfway Goal (LTG) Pt will improve score of HECTOR to no greater than 4/50 to show improved functional ability. LTG Duration 03/11 Two Impairment stairs step to Impairment Uses substitute muscles to get a PF contraction. Short Term Goal (STG) Pt will be able to go up stairs reciprocally w/o rail w /o inc pain. STG Duration 01/29 Electronics Production Supervisor Goal (LTG) Pt will be able to go down stairs reciprocally w/o rail w /o inc pain. LTG Duration 03/11 Assessment Summary Assessment Pt tolerated exercises well and maintained good form and body mechanics with all exercises after minimal cueing . Denied pain or fatigue. Encouraged to go to pool for indep aquatic exercise and also look into community water aerobics classes beginning at the lower level Physical Therapy Plan Frequency and Duration Frequency of Treatment 2x/Week Plan of Care Start Date 12/10/21 Plan of Care End Date 03/11/22 Therapeutic Interventions Therapeutic Interventions Aquatic Therapy,Balance Training,Gait Training,Home Exercise Program,Joint Mobilizations,Manual Therapy, Neuromuscular Re-education, Orthotic/Prosthetic Management ,Patient/Caregiver Education, Self-Care/Home Management,Soft Tissue Mobilization,Taping, Therapeutic Activities, Therapeutic Exercises Modalities Cold Pack/Ice Massage,Electric Stimulation,Hot Packs, Traction- Mechanical, Ultrasound Next Visit Focus/Plan Next Note Type Treatment Note Next Visit Plan cont to work hips and knee joint mobility manually; cont to work on quad and glute strength. Progress pt with resistance and increased aerobic exercises as indicated .
--- NOTE | 2022-02-01 12:19 | PT.OTN ---
Current Diagnoses Pain in right knee (02/01/22) Pain in left knee (02/01/22) Lumbago with sciatica, right side (02/01/22) Abnormal posture (02/01/22) Weakness (02/01/22) Physical Therapy Treatment Note PT-OP-A Visit Information Start: 12/06/21 17:49 Freq: Status: Active Protocol: Document 02/01/22 11:40 NB (Rec: 02/01/22 12:17 NB [id number]) Out-Patient Physical Therapy Visit Information Visit Information Visit Type Aquatic Treatment Note Visit Start Time 11:30 Visit Stop Time 12:15 Total Visit Minutes 45 Visit Number 12 Number of FOOD OPERATIONS MANAGER Visits 3 PT-OP-B Current Condition Start: 12/06/21 17:49 Freq: Status: Active Protocol: Document 12/10/21 12:12 [facility] (Rec: 12/10/21 13:49 [facility] [id number]) Current Condition History of Current Condition Current Complaints B knee pain & sciatic pain R buttocks and down leg History of Current Condition Pt reports B knee pain for years without injuries but arthritis and pt notices she is knock-kneed. Notices her feet are off from that. Pt reports sciatic pain has been going on about 10 months. It was around when [facility] moved here . Ant lat thigh pain started w /move and she had a cramp in lat quad region after. Pt reprots buttocks and leg pain that is worst at night. She has to roll back and forth at night. She is getting a sleep study in Dec. Pt erports she has to take ibuprfoen often d/ t pain more so the last 6 months or so. Can only be active for so long and then has to put her feet up. 1 year ago, she had a home gym and was working with a medical management trainer 2x/ week. This last year, she feels like she is falling apart. She has a lot going on, so she hasn't done as much exercise and self care. Reports she has recently irritated her L shoulder and things she lifted something sideways that was too heavy and now can;t abd or IR and it pops occ. Prior Treatments and Tests L knee xray: Bones: No fractures or dislocations. Moderate narrowing of the lateral compartment joint space with prominent osteophytosis and sclerosis of the lateral tibial plateau. The medial and patellofemoral joint spaces are maintained but demonstrate periarticular osteophytosis. Soft tissues: Small joint effusion. No suspicious soft tissue calcifications. 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 no other treatment tried besides one injection in her knee over 5 years ago that didn't help much. Treatment Goals Patient/Caregiver Goals Get to where she doesn't have LB/hip pain, get her legs stronger so she can be more stable w/knees, be able to increase stamina PT-OP-C Subjective Start: 12/06/21 17:49 Freq: Status: Active Protocol: Document 02/01/22 11:40 NBM (Rec: 02/01/22 12:17 [facility] [id number]) OP-PT Subjective Patient Comments Patient Comments Pt reports she is doing well and enjoys pool therapy. She has lost 7 pounds and feels like the aches and pains are getting better. She has not been doing her exercises consistently and stretches every other night but has been active around the house with painting, unpacking, and decorating. PT-OP-G Mobility & Gait Start: 12/06/21 17:49 Freq: Status: Active Protocol: Document 12/10/21 12:12 [facility] (Rec: 12/10/21 13:49 [facility] [id number]) OP Gait Assessment Comments Gait Comments no UE motion, dec trunk motion , dec push off B, lat lean b PT-OP-J Posture/Palpation/Skin Start: 12/06/21 17:49 Freq: Status: Active Protocol: Document 12/10/21 12:12 [facility] (Rec: 12/10/21 13:49 [facility] [id number]) Posture Evaluation [facility] Postural Classification System [facility] Postural Classifications Posterior/Anterior Vertebral Compression Test 1 Lumbar Protective Mechanism Left AP 0 Lumbar Protective Mechanism Right AP 0 Lumbar Protective Mechanism Left PA 1 Lumbar Protective Mechanism Right PA 3 Comments Posture Comments SLS 10 sec L, 9 sec R w/ excessive UE motion;B kne evalgus, forefoot varus, rearfoot valgus; min R greater troch higher, R iliac crest higher PT-OP-K Range of Motion Start: 12/06/21 17:49 Freq: Status: Active Protocol: Document 12/10/21 12:12 [facility] (Rec: 12/10/21 13:49 [facility] [id number]) Lumbar Spine Range of Motion Lumbar Spine Active Degrees Rotation Left 48 Rotation Right 45 Comments 1 in above patella w/lumbar only, 2 in above ankle flex, ext about 80%; SB equal B good ROM Knee Goniometric Range of Motion Knee Right Flexion Active (degrees) 90 Extension Active (degrees) 10 Left Flexion Active (degrees) 113 Extension Active (degrees) 10 PT-OP-L Special Tests Start: 12/06/21 17:49 Freq: Status: Active Protocol: Document 12/10/21 12:12 [facility] (Rec: 12/10/21 13:49 [facility] [id number]) Special Tests Lumbar Spine Special Tests Chay's Test Results neg B Milind Test Results quads tight B Straight Leg Raise Test Results 91 L; 68 R Slump Test Results tightness R PT-OP-M Strength Start: 12/06/21 17:49 Freq: Status: Active Protocol: Document 12/10/21 12:12 [facility] (Rec: 12/10/21 13:49 [facility] [id number]) Hip Strength Hip Manual Muscle Testing Right Flexion (L2) 4- Good- Extension (S1) 3- Fair- Abduction 3 Fair Adduction 4+ Good+ External Rotation 3+ Fair+ Internal Rotation 4- Good- Comments crepitis B w/ER Left Flexion (L2) 4- Good- Extension (S1) 3+ Fair+ Abduction 3 Fair Adduction 4 Good External Rotation 3+ Fair+ Internal Rotation 4- Good- Knee Strength Knee Manual Muscle Testing Right Flexion (S2) 4+ Good+ Extension (L3) 4 Good Left Flexion (S2) 4+ Good+ Extension (L3) 4 Good Comments significant crepetitis w/ext B Ankle/Foot Strength Ankle and Foot Manual Muscle Testing Right Dorsiflexion (L4) 4 Good Plantarflexion (S1) 4- Good- Comments 13 heel raises Left Dorsiflexion (L4) 4 Good Plantarflexion (S1) 4- Good- Comments crepitis B knees w/DF: 13 heel raises PT-OP-Q Treatments Start: 12/06/21 17:49 Freq: Status: Active Protocol: Document 02/01/22 11:40 NBM (Rec: 02/01/22 12:17 NBM [id number]) Cardio Equipment Bicycle (Upright) Duration (Minutes) 8 Resistance 8 Seat Position 8 Gym Equipment Shuttle Recovery Unilateral Squats Resistance 50# Shuttle Recovery Platform Stable Reps/Time 2x10 ea - pt feels hip abd working Bilateral Squats Resistance 75# Shuttle Recovery Platform Stable Reps/Time 1x10, x10 w/ yellow band at knees - improves knee alignment Therapeutic Exercises Supine Exercises Bridging Supine Exercise Name 1. w/ ball squeeze 2. Lvl 2 Tb at knees (HEP) Equipment Used blue ball, Lvl 2 Tb Reps/Minutes 10 x 3-5 SH Comments cues for glute squeeze, slow eccentric Pififormis stretch Side bilateral Equipment Used w/strap Reps/Minutes 2 x 45s Standing Exercises sit to stand Side bilateral Reps/Minutes 10 Comments 5 second countdown for ecc. ( pt sits in 4s) Resisted Sidestep Standing Exercise Name Bandwalking, lat Side bilateral Resistance Lvl 2 Tb ankles Equipment Used handrail Reps/Minutes 2 x 10ft ea PT-OP-R Modalities Start: 12/06/21 17:49 Freq: Status: Active Protocol: Document 02/01/22 11:40 NBM (Rec: 02/01/22 12:17 NBM [id number]) Hot Pack/Cold Pack Treatment Cold Pack Location lumbar Patient Position Hooklying Treatment Duration (minutes) 10 Patient Tolerance Good PT-OP-S Aquatic Treatment Start: 01/24/22 12:48 Freq: Status: Active Protocol: Document 01/28/22 14:50 LJ (Rec: 01/28/22 15:05 LJ [id number]) Aquatics Treatment Pool Entry/Exit Pool Entry/Exit Method Stairs Assistance Independent Water Walking straight leg march Water Level Chest Level Level of Assistance Verbal Cues march Water Level Chest Level Comments reaching to opp side side Water Level Chest Level Comments HABD/HADD backward Water Level Chest Level forward Water Level Chest Level Comments past pace w/cues to lift chest push pelvis forward Lower Extremity Exercises 4 way hip Body Position Standing Water Level Chest Level Reps/Duration 10x ea Comments cues for alignment, core angagement Lower Extremity Stretches adductors Details at wall Body Position Standing Water Level Waist Level Equipment noodle Reps/Duration 2x30 Comments therapist assist hip flexor Body Position Standing Water Level [place] Comments at wall quads Body Position Standing Water Level Chest Level Comments therapist assist ITB Body Position Standing Water Level Chest Level Equipment Small Noodle Reps/Duration 2x30 HS Body Position Standing Water Level Chest Level Equipment Small Noodle Reps/Duration 2x30 Spinal Exercises wonderboard Body Position Sitting Reps/Duration 6 min Comments static and dynamic; progressed to kneeling [place] Activities [place] Activities Bicycle,Bicycle Backwards, Cross Country,Running,Hip Abduction/Adduction Other Activities pendulum shoot thru-full and half fwd burpees x15 VC for execution spiderman body swing Equipment flotation belt Duration 15 min Comments cues for core engagement, alignment PT-OP-T Assessment and Plan Start: 12/06/21 17:49 Freq: Status: Active Protocol: Document 02/01/22 11:40 NBM (Rec: 02/01/22 12:17 NB [id number]) Physical Therapy Assessment Goals activity tolerance Short Term Goal (STG) Pt will be able to comfortably do sit to stand after sitting extended w/o inc pain STG Duration 02/09 Lead Scientist Goal (LTG) Pt will be able to stand as needed and move around house without requiring mult rest breaks in day. LTG Duration 03/11 strength Short Term Goal (STG) Pt will be indep w/HEP for strength, ROM, balance and pain relief STG Duration 02/08 [facility] Goal (LTG) Pt will score at least 4+/5 on MMT LEs and at least 3/5 on LPM in all planes to show improved stability. LTG Duration 03/11 Three Impairment HECTOR 19/50 Impairment PF strength 3/5 Short Term Goal (STG) Pt will improve score of HECTOR to no greater than 13/50 to show improved functional ability. STG Duration 01/29 Lead Scientist Goal (LTG) Pt will improve score of HECTOR to no greater than 4/50 to show improved functional ability. LTG Duration 03/11 Two Impairment stairs step to Impairment Uses substitute muscles to get a PF contraction. Short Term Goal (STG) Pt will be able to go up stairs reciprocally w/o rail w /o inc pain. STG Duration 01/29 [facility] Goal (LTG) Pt will be able to go down stairs reciprocally w/o rail w /o inc pain. LTG Duration 03/11 Assessment Summary Assessment Pt self-corrects posture and knee alignment consistently throughout treatment session and demonstrates improved control with bridging. She requires cues for controlled eccentric phase of sit to stand and was able to slow from 4s to 5s for last two reps for seat contact. Physical Therapy Plan Frequency and Duration Frequency of Treatment 2x/Week Plan of Care Start Date 12/10/21 Plan of Care End Date 03/11/22 Therapeutic Interventions Therapeutic Interventions Aquatic Therapy,Balance Training,Gait Training,Home Exercise Program,Joint Mobilizations,Manual Therapy, Neuromuscular Re-education, Orthotic/Prosthetic Management ,Patient/Caregiver Education, Self-Care/Home Management,Soft Tissue Mobilization,Taping, Therapeutic Activities, Therapeutic Exercises Modalities Cold Pack/Ice Massage,Electric Stimulation,Hot Packs, Traction- Mechanical, Ultrasound Next Visit Focus/Plan Next Note Type Treatment Note Next Visit Plan cont to work hips and knee joint mobility manually; cont to work on quad and glute strength. Progress pt with resistance and increased aerobic exercises as indicated .
--- NOTE | 2022-02-11 14:42 | PT.OTN ---
Current Diagnoses Pain in right knee (02/11/22) Pain in left knee (02/11/22) Lumbago with sciatica, right side (02/11/22) Abnormal posture (02/11/22) Weakness (02/11/22) Physical Therapy Treatment Note PT-OP-A Visit Information Start: 12/06/21 17:49 Freq: Status: Active Protocol: Document 02/11/22 14:26 LJ (Rec: 02/11/22 14:41 LJ [id number]) Out-Patient Physical Therapy Visit Information Visit Information Visit Type Aquatic Treatment Note Visit Start Time 11:00 Visit Stop Time 11:45 Total Visit Minutes 45 Visit Number 13 Number of R D INTERNSHIP Visits 4 PT-OP-B Current Condition Start: 12/06/21 17:49 Freq: Status: Active Protocol: Document 12/10/21 12:12 [facility] (Rec: 12/10/21 13:49 [facility] [id number]) Current Condition History of Current Condition Current Complaints B knee pain & sciatic pain R buttocks and down leg History of Current Condition Pt reports B knee pain for years without injuries but arthritis and pt notices she is knock-kneed. Notices her feet are off from that. Pt reports sciatic pain has been going on about 10 months. It was around when [facility] moved here . Ant lat thigh pain started w /move and she had a cramp in lat quad region after. Pt reprots buttocks and leg pain that is worst at night. She has to roll back and forth at night. She is getting a sleep study in Dec. Pt erports she has to take ibuprfoen often d/ t pain more so the last 6 months or so. Can only be active for so long and then has to put her feet up. 1 year ago, she had a home gym and was working with a product trainer 2x/ week. This last year, she feels like she is falling apart. She has a lot going on, so she hasn't done as much exercise and self care. Reports she has recently irritated her L shoulder and things she lifted something sideways that was too heavy and now can;t abd or IR and it pops occ. Prior Treatments and Tests L knee xray: Bones: No fractures or dislocations. Moderate narrowing of the lateral compartment joint space with prominent osteophytosis and sclerosis of the lateral tibial plateau. The medial and patellofemoral joint spaces are maintained but demonstrate periarticular osteophytosis. Soft tissues: Small joint effusion. No suspicious soft tissue calcifications. 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 no other treatment tried besides one injection in her knee over 5 years ago that didn't help much. Treatment Goals Patient/Caregiver Goals Get to where she doesn't have LB/hip pain, get her legs stronger so she can be more stable w/knees, be able to increase stamina PT-OP-C Subjective Start: 12/06/21 17:49 Freq: Status: Active Protocol: Document 02/11/22 14:26 LJ (Rec: 02/11/22 14:41 LJ [id number]) OP-PT Subjective Patient Comments Patient Comments Pt states again that she has changed her diet and has lost 9 pounds and feels very good. Believes the combination of pool and land therapy have been the best PT she has ever gotten. She no longer has pain and her energy level has increased. Remains compliant with HEP. PT-OP-G Mobility & Gait Start: 12/06/21 17:49 Freq: Status: Active Protocol: Document 12/10/21 12:12 [facility] (Rec: 12/10/21 13:49 [facility] [id number]) OP Gait Assessment Comments Gait Comments no UE motion, dec trunk motion , dec push off B, lat lean b PT-OP-J Posture/Palpation/Skin Start: 12/06/21 17:49 Freq: Status: Active Protocol: Document 12/10/21 12:12 [facility] (Rec: 12/10/21 13:49 [facility] [id number]) Posture Evaluation [facility] Postural Classification System [facility] Postural Classifications Posterior/Anterior Vertebral Compression Test 1 Lumbar Protective Mechanism Left AP 0 Lumbar Protective Mechanism Right AP 0 Lumbar Protective Mechanism Left PA 1 Lumbar Protective Mechanism Right PA 3 Comments Posture Comments SLS 10 sec L, 9 sec R w/ excessive UE motion;B kne evalgus, forefoot varus, rearfoot valgus; min R greater troch higher, R iliac crest higher PT-OP-K Range of Motion Start: 12/06/21 17:49 Freq: Status: Active Protocol: Document 12/10/21 12:12 [facility] (Rec: 12/10/21 13:49 [facility] [id number]) Lumbar Spine Range of Motion Lumbar Spine Active Degrees Rotation Left 48 Rotation Right 45 Comments 1 in above patella w/lumbar only, 2 in above ankle flex, ext about 80%; SB equal B good ROM Knee Goniometric Range of Motion Knee Right Flexion Active (degrees) 90 Extension Active (degrees) 10 Left Flexion Active (degrees) 113 Extension Active (degrees) 10 PT-OP-L Special Tests Start: 12/06/21 17:49 Freq: Status: Active Protocol: Document 12/10/21 12:12 [facility] (Rec: 12/10/21 13:49 [facility] [id number]) Special Tests Lumbar Spine Special Tests Chay's Test Results neg B Milind Test Results quads tight B Straight Leg Raise Test Results 91 L; 68 R Slump Test Results tightness R PT-OP-M Strength Start: 12/06/21 17:49 Freq: Status: Active Protocol: Document 12/10/21 12:12 [facility] (Rec: 12/10/21 13:49 [facility] [id number]) Hip Strength Hip Manual Muscle Testing Right Flexion (L2) 4- Good- Extension (S1) 3- Fair- Abduction 3 Fair Adduction 4+ Good+ External Rotation 3+ Fair+ Internal Rotation 4- Good- Comments crepitis B w/ER Left Flexion (L2) 4- Good- Extension (S1) 3+ Fair+ Abduction 3 Fair Adduction 4 Good External Rotation 3+ Fair+ Internal Rotation 4- Good- Knee Strength Knee Manual Muscle Testing Right Flexion (S2) 4+ Good+ Extension (L3) 4 Good Left Flexion (S2) 4+ Good+ Extension (L3) 4 Good Comments significant crepetitis w/ext B Ankle/Foot Strength Ankle and Foot Manual Muscle Testing Right Dorsiflexion (L4) 4 Good Plantarflexion (S1) 4- Good- Comments 13 heel raises Left Dorsiflexion (L4) 4 Good Plantarflexion (S1) 4- Good- Comments crepitis B knees w/DF: 13 heel raises PT-OP-Q Treatments Start: 12/06/21 17:49 Freq: Status: Active Protocol: Document 02/01/22 11:40 NBM (Rec: 02/01/22 12:17 NBM [id number]) Cardio Equipment Bicycle (Upright) Duration (Minutes) 8 Resistance 8 Seat Position 8 Gym Equipment Shuttle Recovery Unilateral Squats Resistance 50# Shuttle Recovery Platform Stable Reps/Time 2x10 ea - pt feels hip abd working Bilateral Squats Resistance 75# Shuttle Recovery Platform Stable Reps/Time 1x10, x10 w/ yellow band at knees - improves knee alignment Therapeutic Exercises Supine Exercises Bridging Supine Exercise Name 1. w/ ball squeeze 2. Lvl 2 Tb at knees (HEP) Equipment Used blue ball, Lvl 2 Tb Reps/Minutes 10 x 3-5 SH Comments cues for glute squeeze, slow eccentric Pififormis stretch Side bilateral Equipment Used w/strap Reps/Minutes 2 x 45s Standing Exercises sit to stand Side bilateral Reps/Minutes 10 Comments 5 second countdown for ecc. ( pt sits in 4s) Resisted Sidestep Standing Exercise Name Bandwalking, lat Side bilateral Resistance Lvl 2 Tb ankles Equipment Used handrail Reps/Minutes 2 x 10ft ea PT-OP-R Modalities Start: 12/06/21 17:49 Freq: Status: Active Protocol: Document 02/01/22 11:40 NBM (Rec: 02/01/22 12:17 NBM [id number]) Hot Pack/Cold Pack Treatment Cold Pack Location lumbar Patient Position Hooklying Treatment Duration (minutes) 10 Patient Tolerance Good PT-OP-S Aquatic Treatment Start: 01/24/22 12:48 Freq: Status: Active Protocol: Document 02/11/22 14:26 LJ (Rec: 02/11/22 14:41 LJ [id number]) Aquatics Treatment Pool Entry/Exit Pool Entry/Exit Method Stairs Assistance Independent Water Walking Tandem Gait Water Level Chest Level Walking Equipment Ankle Floats straight leg march Water Level Chest Level Walking Equipment Ankle Floats Level of Assistance Verbal Cues march Water Level Chest Level Walking Equipment Ankle Floats Comments reaching to opp side side Water Level Chest Level Walking Equipment Ankle Floats Comments HABD/HADD backward Water Level Chest Level Walking Equipment Ankle Floats forward Water Level Chest Level Walking Equipment Ankle Floats Comments fast Lower Extremity Exercises hamstring curl Details seated with noodle under arms Equipment Ankle Floats Reps/Duration 15 B circles Body Position Standing Water Level Waist Level Equipment Ankle Floats Reps/Duration 10x CW, 10x CCW Comments cues for alignment and core engagmeent 4 way hip Body Position Standing Water Level Chest Level Equipment Ankle Floats Reps/Duration 10x ea Comments cues for alignment, core angagement Lower Extremity Stretches adductors Water Level Waist Level Equipment noodle Reps/Duration 2x30 Comments feet on wall; added body swing hip flexor Body Position Standing Water Level Waist Level Comments at wall quads Body Position Standing Water Level Chest Level Comments therapist assist ITB Body Position Standing Water Level Chest Level Equipment Small Noodle Reps/Duration 2x30 HS Body Position Standing Water Level Chest Level Equipment Small Noodle Reps/Duration 2x30 Spinal Exercises righting Details supine to standing Water Level Chest Level Equipment Ankle Floats Reps/Duration 8 [place] Activities [place] Activities Bicycle,Cross Country,Running, Hip Abduction/Adduction Other Activities pendulum shoot thru T hang with 5 sec ADD/ABD prone extension Equipment flotation belt, BBs, ankle floats with bike, ski, run, jacks Duration 10 min PT-OP-T Assessment and Plan Start: 12/06/21 17:49 Freq: Status: Active Protocol: Document 02/11/22 14:26 [facility] (Rec: 02/11/22 14:41 [facility] [id number]) Physical Therapy Assessment Goals activity tolerance Short Term Goal (STG) Pt will be able to comfortably do sit to stand after sitting extended w/o inc pain STG Duration 02/09 Retirement Goal (LTG) Pt will be able to stand as needed and move around house without requiring mult rest breaks in day. LTG Duration 03/11 strength Short Term Goal (STG) Pt will be indep w/HEP for strength, ROM, balance and pain relief STG Duration 02/08 Soils Engineer Goal (LTG) Pt will score at least 4+/5 on MMT LEs and at least 3/5 on LPM in all planes to show improved stability. LTG Duration 03/11 Three Impairment HECTOR 19/50 Impairment PF strength 3/5 Short Term Goal (STG) Pt will improve score of HECTOR to no greater than 13/50 to show improved functional ability. STG Duration 01/29 Soils Engineer Goal (LTG) Pt will improve score of HECTOR to no greater than 4/50 to show improved functional ability. LTG Duration 03/11 Two Impairment stairs step to Impairment Uses substitute muscles to get a PF contraction. Short Term Goal (STG) Pt will be able to go up stairs reciprocally w/o rail w /o inc pain. STG Duration 01/29 Retirement Goal (LTG) Pt will be able to go down stairs reciprocally w/o rail w /o inc pain. LTG Duration 03/11 Assessment Summary Assessment Pt did well with balance in all walking activities using ankle floats. Able to right self with ankle floats supine to standing with Mod effort. Improved stability and alignment in deep. She is progressing well and was encouraged to join community aquatic exercise classes to continue strengthening, improving balance, fitness level. Physical Therapy Plan Frequency and Duration Frequency of Treatment 2x/Week Plan of Care Start Date 12/10/21 Plan of Care End Date 03/11/22 Therapeutic Interventions Therapeutic Interventions Aquatic Therapy,Balance Training,Gait Training,Home Exercise Program,Joint Mobilizations,Manual Therapy, Neuromuscular Re-education, Orthotic/Prosthetic Management ,Patient/Caregiver Education, Self-Care/Home Management,Soft Tissue Mobilization,Taping, Therapeutic Activities, Therapeutic Exercises Modalities Cold Pack/Ice Massage,Electric Stimulation,Hot Packs, Traction- Mechanical, Ultrasound Next Visit Focus/Plan Next Note Type Treatment Note Next Visit Plan cont to work hips and knee joint mobility manually; cont to work on quad and glute strength. Progress pt with resistance and increased aerobic exercises as indicated . Aquatic: progress pt with increased moderate intensity exercises in shallow and deep with lightest resistance fins and hand bells.
--- NOTE | 2022-02-13 11:39 | PT.OTN ---
Current Diagnoses Pain in right knee (02/13/22) Pain in left knee (02/13/22) Lumbago with sciatica, right side (02/13/22) Abnormal posture (02/13/22) Weakness (02/13/22) Physical Therapy Treatment Note PT-OP-A Visit Information Start: 12/06/21 17:49 Freq: Status: Active Protocol: Document 02/13/22 10:40 [facility] (Rec: 02/13/22 11:39 [facility] [id number]) Out-Patient Physical Therapy Visit Information Visit Information Visit Type Progress Note Visit Note 04/09 Visit Start Time 10:36 Visit Stop Time 11:16 Total Visit Minutes 40 Visit Number 14 Number of COMMERCIAL PILOT Visits 0 PT-OP-B Current Condition Start: 12/06/21 17:49 Freq: Status: Active Protocol: Document 12/10/21 12:12 [facility] (Rec: 12/10/21 13:49 [facility] [id number]) Current Condition History of Current Condition Current Complaints B knee pain & sciatic pain R buttocks and down leg History of Current Condition Pt reports B knee pain for years without injuries but arthritis and pt notices she is knock-kneed. Notices her feet are off from that. Pt reports sciatic pain has been going on about 10 months. It was around when [facility] moved here . Ant lat thigh pain started w /move and she had a cramp in lat quad region after. Pt reprots buttocks and leg pain that is worst at night. She has to roll back and forth at night. She is getting a sleep study in Dec. Pt erports she has to take ibuprfoen often d/ t pain more so the last 6 months or so. Can only be active for so long and then has to put her feet up. 1 year ago, she had a home gym and was working with a pet trainer 2x/ week. This last year, she feels like she is falling apart. She has a lot going on, so she hasn't done as much exercise and self care. Reports she has recently irritated her L shoulder and things she lifted something sideways that was too heavy and now can;t abd or IR and it pops occ. Prior Treatments and Tests L knee xray: Bones: No fractures or dislocations. Moderate narrowing of the lateral compartment joint space with prominent osteophytosis and sclerosis of the lateral tibial plateau. The medial and patellofemoral joint spaces are maintained but demonstrate periarticular osteophytosis. Soft tissues: Small joint effusion. No suspicious soft tissue calcifications. 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 no other treatment tried besides one injection in her knee over 5 years ago that didn't help much. Treatment Goals Patient/Caregiver Goals Get to where she doesn't have LB/hip pain, get her legs stronger so she can be more stable w/knees, be able to increase stamina PT-OP-C Subjective Start: 12/06/21 17:49 Freq: Status: Active Protocol: Document 02/13/22 10:40 [facility] (Rec: 02/13/22 11:39 [facility] [id number]) OP-PT Subjective Patient Comments Patient Comments Pt reports her back bothers her at night when she is sleeping. DUring the days she is fine. Knees are doing better. She has lost weight recently too. Patient Reported Progress Improving PT-OP-G Mobility & Gait Start: 12/06/21 17:49 Freq: Status: Active Protocol: Document 12/10/21 12:12 [facility] (Rec: 12/10/21 13:49 [facility] [id number]) OP Gait Assessment Comments Gait Comments no UE motion, dec trunk motion , dec push off B, lat lean b PT-OP-J Posture/Palpation/Skin Start: 12/06/21 17:49 Freq: Status: Active Protocol: Document 12/10/21 12:12 [facility] (Rec: 12/10/21 13:49 [facility] [id number]) Posture Evaluation [facility] Postural Classification System [facility] Postural Classifications Posterior/Anterior Vertebral Compression Test 1 Lumbar Protective Mechanism Left AP 0 Lumbar Protective Mechanism Right AP 0 Lumbar Protective Mechanism Left PA 1 Lumbar Protective Mechanism Right PA 3 Comments Posture Comments SLS 10 sec L, 9 sec R w/ excessive UE motion;B kne evalgus, forefoot varus, rearfoot valgus; min R greater troch higher, R iliac crest higher PT-OP-K Range of Motion Start: 12/06/21 17:49 Freq: Status: Active Protocol: Document 12/10/21 12:12 [facility] (Rec: 12/10/21 13:49 [facility] [id number]) Lumbar Spine Range of Motion Lumbar Spine Active Degrees Rotation Left 48 Rotation Right 45 Comments 1 in above patella w/lumbar only, 2 in above ankle flex, ext about 80%; SB equal B good ROM Knee Goniometric Range of Motion Knee Right Flexion Active (degrees) 90 Extension Active (degrees) 10 Left Flexion Active (degrees) 113 Extension Active (degrees) 10 PT-OP-L Special Tests Start: 12/06/21 17:49 Freq: Status: Active Protocol: Document 12/10/21 12:12 [facility] (Rec: 12/10/21 13:49 [facility] [id number]) Special Tests Lumbar Spine Special Tests Chay's Test Results neg B Milind Test Results quads tight B Straight Leg Raise Test Results 91 L; 68 R Slump Test Results tightness R PT-OP-M Strength Start: 12/06/21 17:49 Freq: Status: Active Protocol: Document 02/13/22 10:40 [facility] (Rec: 02/13/22 11:39 [facility] [id number]) Hip Strength Hip Manual Muscle Testing Right Flexion (L2) 4+ Good+ Extension (S1) 3+ Fair+ Abduction 3 Fair Adduction 5 Normal External Rotation 4 Good Internal Rotation 5 Normal Comments crepitis B w/ER Left Flexion (L2) 4 Good Extension (S1) 4- Good- Abduction 3+ Fair+ Adduction 4+ Good+ External Rotation 4 Good Internal Rotation 5 Normal Knee Strength Knee Manual Muscle Testing Right Flexion (S2) 5 Normal Extension (L3) 4+ Good+ Left Flexion (S2) 5 Normal Extension (L3) 5 Normal Ankle/Foot Strength Ankle and Foot Manual Muscle Testing Right Dorsiflexion (L4) 5 Normal Plantarflexion (S1) 4- Good- Comments 20 heel raises Left Dorsiflexion (L4) 5 Normal Plantarflexion (S1) 5 Normal Comments 20 heel raises PT-OP-Q Treatments Start: 12/06/21 17:49 Freq: Status: Active Protocol: Document 02/13/22 10:40 [facility] (Rec: 02/13/22 11:39 [facility] [id number]) Cardio Equipment Bicycle (Upright) Duration (Minutes) 7 Resistance 8 Seat Position 8 Therapeutic Activity Therapeutic Activity sleep position Comments s/l sleep position w/pillows and towels for support x8 min Manual Therapy Treatment Soft Tissue Mobilization lumbar Body Location R QL & ES Mobilization Type Rolling,Strumming Intensity/Depth Moderate Body Position Sidelying Comments FM w/ant elevation/post dep Joint Mobilizations lumbar Joint L transverse L2, L4, L5 FM Neuro Re-Education Treatment Other Activities PNF Reps/Duration 13 min Comments 1. chop pattern w/flex,add ER R LE pattern facilitaiton 2. ant elevation R rhythmic initiation to sustained hold, COI progressed to sustained holds and COI w/R LE pattern PT-OP-R Modalities Start: 12/06/21 17:49 Freq: Status: Active Protocol: Document 02/01/22 11:40 NBM (Rec: 02/01/22 12:17 NBM [id number]) Hot Pack/Cold Pack Treatment Cold Pack Location lumbar Patient Position Hooklying Treatment Duration (minutes) 10 Patient Tolerance Good PT-OP-S Aquatic Treatment Start: 01/24/22 12:48 Freq: Status: Active Protocol: Document 02/11/22 14:26 LJ (Rec: 02/11/22 14:41 LJ [id number]) Aquatics Treatment Pool Entry/Exit Pool Entry/Exit Method Stairs Assistance Independent Water Walking Tandem Gait Water Level Chest Level Walking Equipment Ankle Floats straight leg march Water Level Chest Level Walking Equipment Ankle Floats Level of Assistance Verbal Cues march Water Level Chest Level Walking Equipment Ankle Floats Comments reaching to opp side side Water Level Chest Level Walking Equipment Ankle Floats Comments HABD/HADD backward Water Level Chest Level Walking Equipment Ankle Floats forward Water Level Chest Level Walking Equipment Ankle Floats Comments fast Lower Extremity Exercises hamstring curl Details seated with noodle under arms Equipment Ankle Floats Reps/Duration 15 B circles Body Position Standing Water Level Waist Level Equipment Ankle Floats Reps/Duration 10x CW, 10x CCW Comments cues for alignment and core engagmeent 4 way hip Body Position Standing Water Level Chest Level Equipment Ankle Floats Reps/Duration 10x ea Comments cues for alignment, core angagement Lower Extremity Stretches adductors Water Level Waist Level Equipment noodle Reps/Duration 2x30 Comments feet on wall; added body swing hip flexor Body Position Standing Water Level Waist Level Comments at wall quads Body Position Standing Water Level Chest Level Comments therapist assist ITB Body Position Standing Water Level Chest Level Equipment Small Noodle Reps/Duration 2x30 HS Body Position Standing Water Level Chest Level Equipment Small Noodle Reps/Duration 2x30 Spinal Exercises righting Details supine to standing Water Level Chest Level Equipment Ankle Floats Reps/Duration 8 [place] Activities [place] Activities Bicycle,Cross Country,Running, Hip Abduction/Adduction Other Activities pendulum shoot thru T hang with 5 sec ADD/ABD prone extension Equipment flotation belt, BBs, ankle floats with bike, ski, run, jacks Duration 10 min PT-OP-T Assessment and Plan Start: 12/06/21 17:49 Freq: Status: Active Protocol: Document 02/13/22 10:40 [facility] (Rec: 02/13/22 11:39 [facility] [id number]) Physical Therapy Assessment Goals activity tolerance Short Term Goal (STG) Pt will be able to comfortably do sit to stand after sitting extended w/o inc pain 02/03-still pain STG Duration 02/09 Registered Appraiser Goal (LTG) Pt will be able to stand as needed and move around house without requiring mult rest breaks in day. 02/13-does not need as many breaks in the day LTG Duration 03/11 strength Short Term Goal (STG) Pt will be indep w/HEP for strength, ROM, balance and pain relief STG Duration achieved-advacning as able Mcc Goal (LTG) Pt will score at least 4+/5 on MMT LEs and at least 3/5 on LPM in all planes to show improved stability. 02/13-improved; 1 AP/PA L; 2 R LTG Duration 03/11 Three Impairment HECTOR 19/50 Impairment HECTOR Short Term Goal (STG) Pt will improve score of HECTOR to no greater than 13/50 to show improved functional ability. 02/13-nt STG Duration 01/29 Registered Appraiser Goal (LTG) Pt will improve score of HECTOR to no greater than 4/50 to show improved functional ability. LTG Duration 03/11 Two Impairment stairs step to Impairment Uses substitute muscles to get a PF contraction. Short Term Goal (STG) Pt will be able to go up stairs reciprocally w/o rail w /o inc pain. STG Duration achieved 02/13 Registered Appraiser Goal (LTG) Pt will be able to go down stairs reciprocally w/o rail w /o inc pain. 02/13-can but mild difficulty LTG Duration 03/11 Assessment Summary Assessment Pt had imrpoved hip abd to 4-/ 5 after PNF work. She is making good progress w/PT at this tiem w/imrpoved strength and fucntional mobility. Pt would benefit from cont PT to dec pain. Physical Therapy Plan Frequency and Duration Frequency of Treatment 2x/Week Plan of Care Start Date 12/10/21 Plan of Care End Date 03/11/22 Therapeutic Interventions Therapeutic Interventions Aquatic Therapy,Balance Training,Gait Training,Home Exercise Program,Joint Mobilizations,Manual Therapy, Neuromuscular Re-education, Orthotic/Prosthetic Management ,Patient/Caregiver Education, Self-Care/Home Management,Soft Tissue Mobilization,Taping, Therapeutic Activities, Therapeutic Exercises Modalities Cold Pack/Ice Massage,Electric Stimulation,Hot Packs, Traction- Mechanical, Ultrasound Next Visit Focus/Plan Next Note Type Treatment Note Next Visit Plan cont to work hips and knee joint mobility manually; cont to work on quad and glute strength and core strength
--- NOTE | 2022-02-18 14:41 | PT.OTN ---
Current Diagnoses Pain in right knee (02/18/22) Pain in left knee (02/18/22) Lumbago with sciatica, right side (02/18/22) Abnormal posture (02/18/22) Weakness (02/18/22) Physical Therapy Treatment Note PT-OP-A Visit Information Start: 12/06/21 17:49 Freq: Status: Active Protocol: Document 02/18/22 14:25 LJ (Rec: 02/18/22 14:41 LJ [id number]) Out-Patient Physical Therapy Visit Information Visit Information Visit Type Aquatic Treatment Note PT-OP-B Current Condition Start: 12/06/21 17:49 Freq: Status: Active Protocol: Document 12/10/21 12:12 [facility] (Rec: 12/10/21 13:49 [facility] [id number]) Current Condition History of Current Condition Current Complaints B knee pain & sciatic pain R buttocks and down leg History of Current Condition Pt reports B knee pain for years without injuries but arthritis and pt notices she is knock-kneed. Notices her feet are off from that. Pt reports sciatic pain has been going on about 10 months. It was around when [facility] moved here . Ant lat thigh pain started w /move and she had a cramp in lat quad region after. Pt reprots buttocks and leg pain that is worst at night. She has to roll back and forth at night. She is getting a sleep study in Dec. Pt erports she has to take ibuprfoen often d/ t pain more so the last 6 months or so. Can only be active for so long and then has to put her feet up. 1 year ago, she had a home gym and was working with a wellness trainer 2x/ week. This last year, she feels like she is falling apart. She has a lot going on, so she hasn't done as much exercise and self care. Reports she has recently irritated her L shoulder and things she lifted something sideways that was too heavy and now can;t abd or IR and it pops occ. Prior Treatments and Tests L knee xray: Bones: No fractures or dislocations. Moderate narrowing of the lateral compartment joint space with prominent osteophytosis and sclerosis of the lateral tibial plateau. The medial and patellofemoral joint spaces are maintained but demonstrate periarticular osteophytosis. Soft tissues: Small joint effusion. No suspicious soft tissue calcifications. 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 no other treatment tried besides one injection in her knee over 5 years ago that didn't help much. Treatment Goals Patient/Caregiver Goals Get to where she doesn't have LB/hip pain, get her legs stronger so she can be more stable w/knees, be able to increase stamina PT-OP-C Subjective Start: 12/06/21 17:49 Freq: Status: Active Protocol: Document 02/18/22 14:25 LJ (Rec: 02/18/22 14:41 LJ [id number]) OP-PT Subjective Patient Comments Patient Comments Pt reports she is doing much better and will continue to go to the pool for exercise. She feels it is the only place she can get a good, safe workout without pain. PT-OP-G Mobility & Gait Start: 12/06/21 17:49 Freq: Status: Active Protocol: Document 12/10/21 12:12 [facility] (Rec: 12/10/21 13:49 [facility] [id number]) OP Gait Assessment Comments Gait Comments no UE motion, dec trunk motion , dec push off B, lat lean b PT-OP-J Posture/Palpation/Skin Start: 12/06/21 17:49 Freq: Status: Active Protocol: Document 12/10/21 12:12 [facility] (Rec: 12/10/21 13:49 [facility] [id number]) Posture Evaluation [facility] Postural Classification System Becki Postural Classifications Posterior/Anterior Vertebral Compression Test 1 Lumbar Protective Mechanism Left AP 0 Lumbar Protective Mechanism Right AP 0 Lumbar Protective Mechanism Left PA 1 Lumbar Protective Mechanism Right PA 3 Comments Posture Comments SLS 10 sec L, 9 sec R w/ excessive UE motion;B kne evalgus, forefoot varus, rearfoot valgus; min R greater troch higher, R iliac crest higher PT-OP-K Range of Motion Start: 12/06/21 17:49 Freq: Status: Active Protocol: Document 12/10/21 12:12 [facility] (Rec: 12/10/21 13:49 [facility] [id number]) Lumbar Spine Range of Motion Lumbar Spine Active Degrees Rotation Left 48 Rotation Right 45 Comments 1 in above patella w/lumbar only, 2 in above ankle flex, ext about 80%; SB equal B good ROM Knee Goniometric Range of Motion Knee Right Flexion Active (degrees) 90 Extension Active (degrees) 10 Left Flexion Active (degrees) 113 Extension Active (degrees) 10 PT-OP-L Special Tests Start: 12/06/21 17:49 Freq: Status: Active Protocol: Document 12/10/21 12:12 [facility] (Rec: 12/10/21 13:49 [facility] [id number]) Special Tests Lumbar Spine Special Tests Chay's Test Results neg B Milind Test Results quads tight B Straight Leg Raise Test Results 91 L; 68 R Slump Test Results tightness R PT-OP-M Strength Start: 12/06/21 17:49 Freq: Status: Active Protocol: Document 02/13/22 10:40 [facility] (Rec: 02/13/22 11:39 [facility] [id number]) Hip Strength Hip Manual Muscle Testing Right Flexion (L2) 4+ Good+ Extension (S1) 3+ Fair+ Abduction 3 Fair Adduction 5 Normal External Rotation 4 Good Internal Rotation 5 Normal Comments crepitis B w/ER Left Flexion (L2) 4 Good Extension (S1) 4- Good- Abduction 3+ Fair+ Adduction 4+ Good+ External Rotation 4 Good Internal Rotation 5 Normal Knee Strength Knee Manual Muscle Testing Right Flexion (S2) 5 Normal Extension (L3) 4+ Good+ Left Flexion (S2) 5 Normal Extension (L3) 5 Normal Ankle/Foot Strength Ankle and Foot Manual Muscle Testing Right Dorsiflexion (L4) 5 Normal Plantarflexion (S1) 4- Good- Comments 20 heel raises Left Dorsiflexion (L4) 5 Normal Plantarflexion (S1) 5 Normal Comments 20 heel raises PT-OP-Q Treatments Start: 12/06/21 17:49 Freq: Status: Active Protocol: Document 02/13/22 10:40 [facility] (Rec: 02/13/22 11:39 [facility] [id number]) Cardio Equipment Bicycle (Upright) Duration (Minutes) 7 Resistance 8 Seat Position 8 Therapeutic Activity Therapeutic Activity sleep position Comments s/l sleep position w/pillows and towels for support x8 min Manual Therapy Treatment Soft Tissue Mobilization lumbar Body Location R QL & ES Mobilization Type Rolling,Strumming Intensity/Depth Moderate Body Position Sidelying Comments FM w/ant elevation/post dep Joint Mobilizations lumbar Joint L transverse L2, L4, L5 FM Neuro Re-Education Treatment Other Activities PNF Reps/Duration 13 min Comments 1. chop pattern w/flex,add ER R LE pattern facilitaiton 2. ant elevation R rhythmic initiation to sustained hold, COI progressed to sustained holds and COI w/R LE pattern PT-OP-R Modalities Start: 12/06/21 17:49 Freq: Status: Active Protocol: Document 02/01/22 11:40 NBM (Rec: 02/01/22 12:17 NBM [id number]) Hot Pack/Cold Pack Treatment Cold Pack Location lumbar Patient Position Hooklying Treatment Duration (minutes) 10 Patient Tolerance Good PT-OP-S Aquatic Treatment Start: 01/24/22 12:48 Freq: Status: Active Protocol: Document 02/18/22 14:25 LJ (Rec: 02/18/22 14:41 LJ [id number]) Aquatics Treatment Pool Entry/Exit Pool Entry/Exit Method Stairs Assistance Independent Lower Extremity Exercises wide knee may Details quick feet Water Level Chest Level Reps/Duration 30/15 intervals for 2 min Comments hip ER jog Water Level Chest Level Reps/Duration 4 laps in shallow jumps Water Level Chest Level Reps/Duration 2x8 Comments soft landing rocking horse Details intervals Reps/Duration 30/15 2 min jacks Details intervals Reps/Duration 30/15 2 min cross country ski Details intervals Reps/Duration 30/15 2 min circles Body Position Standing Water Level Waist Level Equipment Ankle Floats Reps/Duration 10x CW, 10x CCW Comments cues for alignment and core engagmeent 4 way hip Body Position Standing Water Level Chest Level Equipment Ankle Floats Reps/Duration 10x ea Comments cues for alignment, core angagement Lower Extremity Stretches adductors Water Level Waist Level Equipment noodle Reps/Duration 2x30 Comments feet on wall; added body swing hip flexor Body Position Standing Water Level Waist Level Comments at wall quads Body Position Standing Water Level Chest Level Comments therapist assist ITB Body Position Standing Water Level Chest Level Equipment Small Noodle Reps/Duration 2x30 HS Body Position Standing Water Level Chest Level Equipment Small Noodle Reps/Duration 2x30 [place] Activities [place] Activities Bicycle Backwards,Cross Country,Running,Hip Abduction/ Adduction Other Activities pendulum shoot thru T hang with 5 sec ADD/ABD rock and roll supine crunches supine shoulder extension- unilateral w/med BB Equipment flotation belt, BBs, ankle floats with bike, ski, run, jacks Duration 15 min PT-OP-T Assessment and Plan Start: 12/06/21 17:49 Freq: Status: Active Protocol: Document 02/18/22 14:25 HOLLY (Rec: 02/18/22 14:41 [facility] [id number]) Physical Therapy Assessment Goals activity tolerance Short Term Goal (STG) Pt will be able to comfortably do sit to stand after sitting extended w/o inc pain 02/03-still pain STG Duration 02/09 Pigs Feet Cleaner Goal (LTG) Pt will be able to stand as needed and move around house without requiring mult rest breaks in day. 02/13-does not need as many breaks in the day LTG Duration 03/11 strength Short Term Goal (STG) Pt will be indep w/HEP for strength, ROM, balance and pain relief STG Duration achieved-advacning as able Pigs Feet Cleaner Goal (LTG) Pt will score at least 4+/5 on MMT LEs and at least 3/5 on LPM in all planes to show improved stability. 02/13-improved; 1 AP/PA L; 2 R LTG Duration 03/11 Three Impairment HECTOR 19/50 Impairment HECTOR Short Term Goal (STG) Pt will improve score of HECTOR to no greater than 13/50 to show improved functional ability. 02/13-nt STG Duration 01/29 Jail Goal (LTG) Pt will improve score of HECTOR to no greater than 4/50 to show improved functional ability. LTG Duration 03/11 Two Impairment stairs step to Impairment Uses substitute muscles to get a PF contraction. Short Term Goal (STG) Pt will be able to go up stairs reciprocally w/o rail w /o inc pain. STG Duration achieved 02/13 Pigs Feet Cleaner Goal (LTG) Pt will be able to go down stairs reciprocally w/o rail w /o inc pain. 02/13-can but mild difficulty LTG Duration 03/11 Assessment Summary Assessment Pt able to perform all exercises without difficulty. Pt did not wear belt for most exercises in deep water and only used ankle floats for ski , hip abd, run bike. She challenged her endurance with increased aerobic exercises but was able to fully recover between sets. She is doing very well and is ready to participate in community based aquatic exercise classes at the moderate level. Physical Therapy Plan Frequency and Duration Frequency of Treatment 2x/Week Plan of Care Start Date 12/10/21 Plan of Care End Date 03/11/22 Therapeutic Interventions Therapeutic Interventions Aquatic Therapy,Balance Training,Gait Training,Home Exercise Program,Joint Mobilizations,Manual Therapy, Neuromuscular Re-education, Orthotic/Prosthetic Management ,Patient/Caregiver Education, Self-Care/Home Management,Soft Tissue Mobilization,Taping, Therapeutic Activities, Therapeutic Exercises Modalities Cold Pack/Ice Massage,Electric Stimulation,Hot Packs, Traction- Mechanical, Ultrasound Next Visit Focus/Plan Next Note Type Treatment Note Next Visit Plan cont to work hips and knee joint mobility manually; cont to work on quad and glute strength and core strength Aquatic: progress pt with increased moderate intensity exercises in shallow and deep with lightest resistance fins and hand bells.
--- NOTE | 2022-02-20 10:35 | PT.OTN ---
Current Diagnoses Pain in right knee (02/20/22) Pain in left knee (02/20/22) Lumbago with sciatica, right side (02/20/22) Abnormal posture (02/20/22) Weakness (02/20/22) Physical Therapy Treatment Note PT-OP-A Visit Information Start: 12/06/21 17:49 Freq: Status: Active Protocol: Document 02/20/22 09:53 [facility] (Rec: 02/20/22 10:34 [facility] [id number]) Out-Patient Physical Therapy Visit Information Visit Information Visit Type Treatment Note Visit Note 06/07 Visit Start Time 09:51 Visit Stop Time 10:40 Total Visit Minutes 49 Visit Number 15 Number of MANNEQUIN MAKER Visits 0 PT-OP-B Current Condition Start: 12/06/21 17:49 Freq: Status: Active Protocol: Document 12/10/21 12:12 [facility] (Rec: 12/10/21 13:49 [facility] [id number]) Current Condition History of Current Condition Current Complaints B knee pain & sciatic pain R buttocks and down leg History of Current Condition Pt reports B knee pain for years without injuries but arthritis and pt notices she is knock-kneed. Notices her feet are off from that. Pt reports sciatic pain has been going on about 10 months. It was around when [facility] moved here . Ant lat thigh pain started w /move and she had a cramp in lat quad region after. Pt reprots buttocks and leg pain that is worst at night. She has to roll back and forth at night. She is getting a sleep study in Dec. Pt erports she has to take ibuprfoen often d/ t pain more so the last 6 months or so. Can only be active for so long and then has to put her feet up. 1 year ago, she had a home gym and was working with a product trainer 2x/ week. This last year, she feels like she is falling apart. She has a lot going on, so she hasn't done as much exercise and self care. Reports she has recently irritated her L shoulder and things she lifted something sideways that was too heavy and now can;t abd or IR and it pops occ. Prior Treatments and Tests L knee xray: Bones: No fractures or dislocations. Moderate narrowing of the lateral compartment joint space with prominent osteophytosis and sclerosis of the lateral tibial plateau. The medial and patellofemoral joint spaces are maintained but demonstrate periarticular osteophytosis. Soft tissues: Small joint effusion. No suspicious soft tissue calcifications. 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 no other treatment tried besides one injection in her knee over 5 years ago that didn't help much. Treatment Goals Patient/Caregiver Goals Get to where she doesn't have LB/hip pain, get her legs stronger so she can be more stable w/knees, be able to increase stamina PT-OP-C Subjective Start: 12/06/21 17:49 Freq: Status: Active Protocol: Document 02/20/22 09:53 [facility] (Rec: 02/20/22 10:34 [facility] [id number]) OP-PT Subjective Patient Comments Patient Comments I almost have no pain. Sleep position stuff helped. PT-OP-G Mobility & Gait Start: 12/06/21 17:49 Freq: Status: Active Protocol: Document 12/10/21 12:12 [facility] (Rec: 12/10/21 13:49 [facility] [id number]) OP Gait Assessment Comments Gait Comments no UE motion, dec trunk motion , dec push off B, lat lean b PT-OP-J Posture/Palpation/Skin Start: 12/06/21 17:49 Freq: Status: Active Protocol: Document 12/10/21 12:12 [facility] (Rec: 12/10/21 13:49 [facility] [id number]) Posture Evaluation [facility] Postural Classification System Becki Postural Classifications Posterior/Anterior Vertebral Compression Test 1 Lumbar Protective Mechanism Left AP 0 Lumbar Protective Mechanism Right AP 0 Lumbar Protective Mechanism Left PA 1 Lumbar Protective Mechanism Right PA 3 Comments Posture Comments SLS 10 sec L, 9 sec R w/ excessive UE motion;B kne evalgus, forefoot varus, rearfoot valgus; min R greater troch higher, R iliac crest higher PT-OP-K Range of Motion Start: 12/06/21 17:49 Freq: Status: Active Protocol: Document 12/10/21 12:12 [facility] (Rec: 12/10/21 13:49 [facility] [id number]) Lumbar Spine Range of Motion Lumbar Spine Active Degrees Rotation Left 48 Rotation Right 45 Comments 1 in above patella w/lumbar only, 2 in above ankle flex, ext about 80%; SB equal B good ROM Knee Goniometric Range of Motion Knee Right Flexion Active (degrees) 90 Extension Active (degrees) 10 Left Flexion Active (degrees) 113 Extension Active (degrees) 10 PT-OP-L Special Tests Start: 12/06/21 17:49 Freq: Status: Active Protocol: Document 12/10/21 12:12 [facility] (Rec: 12/10/21 13:49 [facility] [id number]) Special Tests Lumbar Spine Special Tests Chay's Test Results neg B Milind Test Results quads tight B Straight Leg Raise Test Results 91 L; 68 R Slump Test Results tightness R PT-OP-M Strength Start: 12/06/21 17:49 Freq: Status: Active Protocol: Document 02/13/22 10:40 [facility] (Rec: 02/13/22 11:39 [facility] [id number]) Hip Strength Hip Manual Muscle Testing Right Flexion (L2) 4+ Good+ Extension (S1) 3+ Fair+ Abduction 3 Fair Adduction 5 Normal External Rotation 4 Good Internal Rotation 5 Normal Comments crepitis B w/ER Left Flexion (L2) 4 Good Extension (S1) 4- Good- Abduction 3+ Fair+ Adduction 4+ Good+ External Rotation 4 Good Internal Rotation 5 Normal Knee Strength Knee Manual Muscle Testing Right Flexion (S2) 5 Normal Extension (L3) 4+ Good+ Left Flexion (S2) 5 Normal Extension (L3) 5 Normal Ankle/Foot Strength Ankle and Foot Manual Muscle Testing Right Dorsiflexion (L4) 5 Normal Plantarflexion (S1) 4- Good- Comments 20 heel raises Left Dorsiflexion (L4) 5 Normal Plantarflexion (S1) 5 Normal Comments 20 heel raises PT-OP-Q Treatments Start: 12/06/21 17:49 Freq: Status: Active Protocol: Document 02/20/22 09:53 [facility] (Rec: 02/20/22 10:34 [facility] [id number]) Cardio Equipment Recumbent Bicycle Duration (Minutes) 6 Resistance 8 Seat Position 8 Gym Equipment Shuttle Recovery Unilateral Squats Resistance 50# Shuttle Recovery Platform Stable Reps/Time x10 ea Therapeutic Exercises Standing Exercises hip hike Side bilateral Equipment Used on step w/rail Reps/Minutes 15 ea step down Side bilateral Equipment Used 4 in step and rail prn Reps/Minutes 12 Comments mirror step up Standing Exercise Name w/alt march Side bilateral Equipment Used 8 in step Reps/Minutes 10 Comments VC for knee Manual Therapy Treatment Soft Tissue Mobilization HS Body Location R distal Mobilization Type Rolling,Strumming Intensity/Depth Moderate Comments w/knee flex ext on PT shoulder & knee flex and APs PT-OP-R Modalities Start: 12/06/21 17:49 Freq: Status: Active Protocol: Document 02/20/22 09:53 [facility] (Rec: 02/20/22 10:35 [facility] [id number]) Hot Pack/Cold Pack Treatment Cold Pack Location lumbar Patient Position Hooklying Treatment Duration (minutes) 10 Patient Tolerance Good PT-OP-S Aquatic Treatment Start: 01/24/22 12:48 Freq: Status: Active Protocol: Document 02/18/22 14:25 LJ (Rec: 02/18/22 14:41 LJ [id number]) Aquatics Treatment Pool Entry/Exit Pool Entry/Exit Method Stairs Assistance Independent Lower Extremity Exercises wide knee may Details quick feet Water Level Chest Level Reps/Duration 30/15 intervals for 2 min Comments hip ER jog Water Level Chest Level Reps/Duration 4 laps in shallow jumps Water Level Chest Level Reps/Duration 2x8 Comments soft landing rocking horse Details intervals Reps/Duration 30/15 2 min jacks Details intervals Reps/Duration 30/15 2 min cross country ski Details intervals Reps/Duration 30/15 2 min circles Body Position Standing Water Level Waist Level Equipment Ankle Floats Reps/Duration 10x CW, 10x CCW Comments cues for alignment and core engagmeent 4 way hip Body Position Standing Water Level Chest Level Equipment Ankle Floats Reps/Duration 10x ea Comments cues for alignment, core angagement Lower Extremity Stretches adductors Water Level Waist Level Equipment noodle Reps/Duration 2x30 Comments feet on wall; added body swing hip flexor Body Position Standing Water Level Waist Level Comments at wall quads Body Position Standing Water Level Chest Level Comments therapist assist ITB Body Position Standing Water Level Chest Level Equipment Small Noodle Reps/Duration 2x30 HS Body Position Standing Water Level Chest Level Equipment Small Noodle Reps/Duration 2x30 [place] Activities [place] Activities Bicycle Backwards,Cross Country,Running,Hip Abduction/ Adduction Other Activities pendulum shoot thru T hang with 5 sec ADD/ABD rock and roll supine crunches supine shoulder extension- unilateral w/med BB Equipment flotation belt, BBs, ankle floats with bike, ski, run, jacks Duration 15 min PT-OP-T Assessment and Plan Start: 12/06/21 17:49 Freq: Status: Active Protocol: Document 02/20/22 09:53 [facility] (Rec: 02/20/22 10:34 [facility] [id number]) Physical Therapy Assessment Goals activity tolerance Short Term Goal (STG) Pt will be able to comfortably do sit to stand after sitting extended w/o inc pain 02/03-still pain STG Duration 02/09 Senior Care Goal (LTG) Pt will be able to stand as needed and move around house without requiring mult rest breaks in day. 02/13-does not need as many breaks in the day LTG Duration 03/11 strength Short Term Goal (STG) Pt will be indep w/HEP for strength, ROM, balance and pain relief STG Duration achieved-advacning as able Senior Care Goal (LTG) Pt will score at least 4+/5 on MMT LEs and at least 3/5 on LPM in all planes to show improved stability. 02/13-improved; 1 AP/PA L; 2 R LTG Duration 03/11 Three Impairment HECTOR 19/50 Impairment HECTOR Short Term Goal (STG) Pt will improve score of HECTOR to no greater than 13/50 to show improved functional ability. 02/13-nt STG Duration 01/29 Traffic Officer Goal (LTG) Pt will improve score of HECTOR to no greater than 4/50 to show improved functional ability. LTG Duration 03/11 Two Impairment stairs step to Impairment Uses substitute muscles to get a PF contraction. Short Term Goal (STG) Pt will be able to go up stairs reciprocally w/o rail w /o inc pain. STG Duration achieved 02/13 Traffic Officer Goal (LTG) Pt will be able to go down stairs reciprocally w/o rail w /o inc pain. 02/13-can but mild difficulty LTG Duration 03/11 Assessment Summary Assessment Pt is doing better with knee tracking but does require cues during exercises occasionally for hip engagement. Much improved knee flex w/manual Physical Therapy Plan Frequency and Duration Frequency of Treatment 2x/Week Plan of Care Start Date 12/10/21 Plan of Care End Date 03/11/22 Next Visit Focus/Plan Next Note Type Treatment Note Next Visit Plan cont to work hips and knee joint mobility manually; cont to work on quad and glute strength and core strength Aquatic: progress pt with increased moderate intensity exercises in shallow and deep with lightest resistance fins and hand bells.
--- NOTE | 2022-02-25 16:15 | PT.OTN ---
Current Diagnoses Pain in right knee (02/25/22) Pain in left knee (02/25/22) Lumbago with sciatica, right side (02/25/22) Abnormal posture (02/25/22) Weakness (02/25/22) Physical Therapy Treatment Note PT-OP-A Visit Information Start: 12/06/21 17:49 Freq: Status: Active Protocol: Document 02/25/22 16:08 LJ (Rec: 02/25/22 16:15 LJ [id number]) Out-Patient Physical Therapy Visit Information Visit Information Visit Type Aquatic Treatment Note Visit Start Time 11:00 Visit Stop Time 11:45 Total Visit Minutes 45 Visit Number 16 Number of AIRPORT SCREENER Visits 1 PT-OP-B Current Condition Start: 12/06/21 17:49 Freq: Status: Active Protocol: Document 12/10/21 12:12 [facility] (Rec: 12/10/21 13:49 [facility] [id number]) Current Condition History of Current Condition Current Complaints B knee pain & sciatic pain R buttocks and down leg History of Current Condition Pt reports B knee pain for years without injuries but arthritis and pt notices she is knock-kneed. Notices her feet are off from that. Pt reports sciatic pain has been going on about 10 months. It was around when [facility] moved here . Ant lat thigh pain started w /move and she had a cramp in lat quad region after. Pt reprots buttocks and leg pain that is worst at night. She has to roll back and forth at night. She is getting a sleep study in Dec. Pt erports she has to take ibuprfoen often d/ t pain more so the last 6 months or so. Can only be active for so long and then has to put her feet up. 1 year ago, she had a home gym and was working with a link trainer 2x/ week. This last year, she feels like she is falling apart. She has a lot going on, so she hasn't done as much exercise and self care. Reports she has recently irritated her L shoulder and things she lifted something sideways that was too heavy and now can;t abd or IR and it pops occ. Prior Treatments and Tests L knee xray: Bones: No fractures or dislocations. Moderate narrowing of the lateral compartment joint space with prominent osteophytosis and sclerosis of the lateral tibial plateau. The medial and patellofemoral joint spaces are maintained but demonstrate periarticular osteophytosis. Soft tissues: Small joint effusion. No suspicious soft tissue calcifications. 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 no other treatment tried besides one injection in her knee over 5 years ago that didn't help much. Treatment Goals Patient/Caregiver Goals Get to where she doesn't have LB/hip pain, get her legs stronger so she can be more stable w/knees, be able to increase stamina PT-OP-C Subjective Start: 12/06/21 17:49 Freq: Status: Active Protocol: Document 02/25/22 16:08 LJ (Rec: 02/25/22 16:15 LJ [id number]) OP-PT Subjective Patient Comments Patient Comments Feeling good and continues to be pain free. Enjoying aquatic exercise. PT-OP-G Mobility & Gait Start: 12/06/21 17:49 Freq: Status: Active Protocol: Document 12/10/21 12:12 [facility] (Rec: 12/10/21 13:49 [facility] [id number]) OP Gait Assessment Comments Gait Comments no UE motion, dec trunk motion , dec push off B, lat lean b PT-OP-J Posture/Palpation/Skin Start: 12/06/21 17:49 Freq: Status: Active Protocol: Document 12/10/21 12:12 [facility] (Rec: 12/10/21 13:49 [facility] [id number]) Posture Evaluation [facility] Postural Classification System Becki Postural Classifications Posterior/Anterior Vertebral Compression Test 1 Lumbar Protective Mechanism Left AP 0 Lumbar Protective Mechanism Right AP 0 Lumbar Protective Mechanism Left PA 1 Lumbar Protective Mechanism Right PA 3 Comments Posture Comments SLS 10 sec L, 9 sec R w/ excessive UE motion;B kne evalgus, forefoot varus, rearfoot valgus; min R greater troch higher, R iliac crest higher PT-OP-K Range of Motion Start: 12/06/21 17:49 Freq: Status: Active Protocol: Document 12/10/21 12:12 [facility] (Rec: 12/10/21 13:49 [facility] [id number]) Lumbar Spine Range of Motion Lumbar Spine Active Degrees Rotation Left 48 Rotation Right 45 Comments 1 in above patella w/lumbar only, 2 in above ankle flex, ext about 80%; SB equal B good ROM Knee Goniometric Range of Motion Knee Right Flexion Active (degrees) 90 Extension Active (degrees) 10 Left Flexion Active (degrees) 113 Extension Active (degrees) 10 PT-OP-L Special Tests Start: 12/06/21 17:49 Freq: Status: Active Protocol: Document 12/10/21 12:12 [facility] (Rec: 12/10/21 13:49 [facility] [id number]) Special Tests Lumbar Spine Special Tests Chay's Test Results neg B Milind Test Results quads tight B Straight Leg Raise Test Results 91 L; 68 R Slump Test Results tightness R PT-OP-M Strength Start: 12/06/21 17:49 Freq: Status: Active Protocol: Document 02/13/22 10:40 [facility] (Rec: 02/13/22 11:39 [facility] [id number]) Hip Strength Hip Manual Muscle Testing Right Flexion (L2) 4+ Good+ Extension (S1) 3+ Fair+ Abduction 3 Fair Adduction 5 Normal External Rotation 4 Good Internal Rotation 5 Normal Comments crepitis B w/ER Left Flexion (L2) 4 Good Extension (S1) 4- Good- Abduction 3+ Fair+ Adduction 4+ Good+ External Rotation 4 Good Internal Rotation 5 Normal Knee Strength Knee Manual Muscle Testing Right Flexion (S2) 5 Normal Extension (L3) 4+ Good+ Left Flexion (S2) 5 Normal Extension (L3) 5 Normal Ankle/Foot Strength Ankle and Foot Manual Muscle Testing Right Dorsiflexion (L4) 5 Normal Plantarflexion (S1) 4- Good- Comments 20 heel raises Left Dorsiflexion (L4) 5 Normal Plantarflexion (S1) 5 Normal Comments 20 heel raises PT-OP-Q Treatments Start: 12/06/21 17:49 Freq: Status: Active Protocol: Document 02/20/22 09:53 [facility] (Rec: 02/20/22 10:34 [facility] [id number]) Cardio Equipment Recumbent Bicycle Duration (Minutes) 6 Resistance 8 Seat Position 8 Gym Equipment Shuttle Recovery Unilateral Squats Resistance 50# Shuttle Recovery Platform Stable Reps/Time x10 ea Therapeutic Exercises Standing Exercises hip hike Side bilateral Equipment Used on step w/rail Reps/Minutes 15 ea step down Side bilateral Equipment Used 4 in step and rail prn Reps/Minutes 12 Comments mirror step up Standing Exercise Name w/alt march Side bilateral Equipment Used 8 in step Reps/Minutes 10 Comments VC for knee Manual Therapy Treatment Soft Tissue Mobilization HS Body Location R distal Mobilization Type Rolling,Strumming Intensity/Depth Moderate Comments w/knee flex ext on PT shoulder & knee flex and APs PT-OP-R Modalities Start: 12/06/21 17:49 Freq: Status: Active Protocol: Document 02/20/22 09:53 [facility] (Rec: 02/20/22 10:35 [facility] [id number]) Hot Pack/Cold Pack Treatment Cold Pack Location lumbar Patient Position Hooklying Treatment Duration (minutes) 10 Patient Tolerance Good PT-OP-S Aquatic Treatment Start: 01/24/22 12:48 Freq: Status: Active Protocol: Document 02/25/22 16:08 [facility] (Rec: 02/25/22 16:15 LJ [id number]) Aquatics Treatment Pool Entry/Exit Pool Entry/Exit Method Stairs Assistance Independent Lower Extremity Exercises wide knee march Details quick feet Water Level Chest Level Reps/Duration 3 laps Comments hip ER jog Water Level Chest Level Reps/Duration 6 laps in shallow jumps Water Level Chest Level Reps/Duration 2x8 Comments soft landing rocking horse Details intervals Reps/Duration 30/15 2 min jacks Details intervals Reps/Duration 30/15 2 min cross country ski Details intervals Reps/Duration 30/[address] hip Body Position Standing Water Level Chest Level Equipment Ankle Floats Reps/Duration 10x ea Comments cues for alignment, core angagement Lower Extremity Stretches adductors Water Level Waist Level Equipment noodle Reps/Duration 2x30 Comments feet on wall; added body swing hip flexor Body Position Standing Water Level Waist Level Comments at wall quads Body Position Standing Water Level Chest Level Comments therapist assist HS Body Position Standing Water Level Chest Level Equipment Small Noodle Reps/Duration 2x30 [place] Activities [place] Activities Bicycle Backwards,Cross Country,Running,Hip Abduction/ Adduction,Sit Kicks Other Activities 3 way burpees pendulum hacky sac standing on noodle-staitc, dynamic Equipment flotation belt, BBs, ankle fins-sm Duration 15 PT-OP-T Assessment and Plan Start: 12/06/21 17:49 Freq: Status: Active Protocol: Document 02/25/22 16:08 [facility] (Rec: 02/25/22 16:15 LJ [id number]) Physical Therapy Assessment Goals activity tolerance Short Term Goal (STG) Pt will be able to comfortably do sit to stand after sitting extended w/o inc pain 02/03-still pain STG Duration 02/09 Plasterer Stucco Goal (LTG) Pt will be able to stand as needed and move around house without requiring mult rest breaks in day. 02/13-does not need as many breaks in the day LTG Duration 03/11 strength Short Term Goal (STG) Pt will be indep w/HEP for strength, ROM, balance and pain relief STG Duration achieved-advacning as able Plasterer Stucco Goal (LTG) Pt will score at least 4+/5 on MMT LEs and at least 3/5 on LPM in all planes to show improved stability. 02/13-improved; 1 AP/PA L; 2 R LTG Duration 03/11 Three Impairment HECTOR 19/50 Impairment HECTOR Short Term Goal (STG) Pt will improve score of HECTOR to no greater than 13/50 to show improved functional ability. 02/13-nt STG Duration 01/29 Residential Goal (LTG) Pt will improve score of HECTOR to no greater than 4/50 to show improved functional ability. LTG Duration 03/11 Two Impairment stairs step to Impairment Uses substitute muscles to get a PF contraction. Short Term Goal (STG) Pt will be able to go up stairs reciprocally w/o rail w /o inc pain. STG Duration achieved 02/13 Residential Goal (LTG) Pt will be able to go down stairs reciprocally w/o rail w /o inc pain. 02/13-can but mild difficulty LTG Duration 03/11 Assessment Summary Assessment Pt doing well with increase in aerobic exercises. Improving vertical alignment in deep water exercises.She is appropriate for community based water aerobics classes at the intermediate level. Physical Therapy Plan Frequency and Duration Frequency of Treatment 2x/Week Plan of Care Start Date 12/10/21 Plan of Care End Date 03/11/22 Therapeutic Interventions Therapeutic Interventions Aquatic Therapy,Balance Training,Gait Training,Home Exercise Program,Joint Mobilizations,Manual Therapy, Neuromuscular Re-education, Orthotic/Prosthetic Management ,Patient/Caregiver Education, Self-Care/Home Management,Soft Tissue Mobilization,Taping, Therapeutic Activities, Therapeutic Exercises Modalities Cold Pack/Ice Massage,Electric Stimulation,Hot Packs, Traction- Mechanical, Ultrasound Next Visit Focus/Plan Next Note Type Treatment Note Next Visit Plan cont to work hips and knee joint mobility manually; cont to work on quad and glute strength and core strength Aquatic: progress pt with increased moderate intensity exercises in shallow and deep with lightest resistance fins and hand bells.
--- NOTE | 2022-02-27 11:21 | PT.OTN ---
Current Diagnoses Pain in right knee (02/27/22) Pain in left knee (02/27/22) Lumbago with sciatica, right side (02/27/22) Abnormal posture (02/27/22) Weakness (02/27/22) Physical Therapy Treatment Note PT-OP-A Visit Information Start: 12/06/21 17:49 Freq: Status: Active Protocol: Document 02/27/22 09:54 [facility] (Rec: 02/27/22 11:21 [facility] [id number]) Out-Patient Physical Therapy Visit Information Visit Information Visit Type Treatment Note Visit Note 08/07 Visit Start Time 09:52 Visit Stop Time 10:40 Total Visit Minutes 48 Visit Number 17 Number of COMPUTER SYSTEMS DESIGN ANALYST Visits 0 PT-OP-B Current Condition Start: 12/06/21 17:49 Freq: Status: Active Protocol: Document 12/10/21 12:12 [facility] (Rec: 12/10/21 13:49 [facility] [id number]) Current Condition History of Current Condition Current Complaints B knee pain & sciatic pain R buttocks and down leg History of Current Condition Pt reports B knee pain for years without injuries but arthritis and pt notices she is knock-kneed. Notices her feet are off from that. Pt reports sciatic pain has been going on about 10 months. It was around when [facility] moved here . Ant lat thigh pain started w /move and she had a cramp in lat quad region after. Pt reprots buttocks and leg pain that is worst at night. She has to roll back and forth at night. She is getting a sleep study in Dec. Pt erports she has to take ibuprfoen often d/ t pain more so the last 6 months or so. Can only be active for so long and then has to put her feet up. 1 year ago, she had a home gym and was working with a graduate assistant athletic trainer 2x/ week. This last year, she feels like she is falling apart. She has a lot going on, so she hasn't done as much exercise and self care. Reports she has recently irritated her L shoulder and things she lifted something sideways that was too heavy and now can;t abd or IR and it pops occ. Prior Treatments and Tests L knee xray: Bones: No fractures or dislocations. Moderate narrowing of the lateral compartment joint space with prominent osteophytosis and sclerosis of the lateral tibial plateau. The medial and patellofemoral joint spaces are maintained but demonstrate periarticular osteophytosis. Soft tissues: Small joint effusion. No suspicious soft tissue calcifications. 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 no other treatment tried besides one injection in her knee over 5 years ago that didn't help much. Treatment Goals Patient/Caregiver Goals Get to where she doesn't have LB/hip pain, get her legs stronger so she can be more stable w/knees, be able to increase stamina PT-OP-C Subjective Start: 12/06/21 17:49 Freq: Status: Active Protocol: Document 02/27/22 09:54 [facility] (Rec: 02/27/22 11:21 [facility] [id number]) OP-PT Subjective Patient Comments Patient Comments Pt reports some quad soreness and knee soreness PT-OP-G Mobility & Gait Start: 12/06/21 17:49 Freq: Status: Active Protocol: Document 12/10/21 12:12 [facility] (Rec: 12/10/21 13:49 [facility] [id number]) OP Gait Assessment Comments Gait Comments no UE motion, dec trunk motion , dec push off B, lat lean b PT-OP-J Posture/Palpation/Skin Start: 12/06/21 17:49 Freq: Status: Active Protocol: Document 12/10/21 12:12 [facility] (Rec: 12/10/21 13:49 [facility] [id number]) Posture Evaluation [facility] Postural Classification System Becki Postural Classifications Posterior/Anterior Vertebral Compression Test 1 Lumbar Protective Mechanism Left AP 0 Lumbar Protective Mechanism Right AP 0 Lumbar Protective Mechanism Left PA 1 Lumbar Protective Mechanism Right PA 3 Comments Posture Comments SLS 10 sec L, 9 sec R w/ excessive UE motion;B kne evalgus, forefoot varus, rearfoot valgus; min R greater troch higher, R iliac crest higher PT-OP-K Range of Motion Start: 12/06/21 17:49 Freq: Status: Active Protocol: Document 12/10/21 12:12 [facility] (Rec: 12/10/21 13:49 [facility] [id number]) Lumbar Spine Range of Motion Lumbar Spine Active Degrees Rotation Left 48 Rotation Right 45 Comments 1 in above patella w/lumbar only, 2 in above ankle flex, ext about 80%; SB equal B good ROM Knee Goniometric Range of Motion Knee Right Flexion Active (degrees) 90 Extension Active (degrees) 10 Left Flexion Active (degrees) 113 Extension Active (degrees) 10 PT-OP-L Special Tests Start: 12/06/21 17:49 Freq: Status: Active Protocol: Document 12/10/21 12:12 [facility] (Rec: 12/10/21 13:49 [facility] [id number]) Special Tests Lumbar Spine Special Tests Chay's Test Results neg B Milind Test Results quads tight B Straight Leg Raise Test Results 91 L; 68 R Slump Test Results tightness R PT-OP-M Strength Start: 12/06/21 17:49 Freq: Status: Active Protocol: Document 02/13/22 10:40 [facility] (Rec: 02/13/22 11:39 [facility] [id number]) Hip Strength Hip Manual Muscle Testing Right Flexion (L2) 4+ Good+ Extension (S1) 3+ Fair+ Abduction 3 Fair Adduction 5 Normal External Rotation 4 Good Internal Rotation 5 Normal Comments crepitis B w/ER Left Flexion (L2) 4 Good Extension (S1) 4- Good- Abduction 3+ Fair+ Adduction 4+ Good+ External Rotation 4 Good Internal Rotation 5 Normal Knee Strength Knee Manual Muscle Testing Right Flexion (S2) 5 Normal Extension (L3) 4+ Good+ Left Flexion (S2) 5 Normal Extension (L3) 5 Normal Ankle/Foot Strength Ankle and Foot Manual Muscle Testing Right Dorsiflexion (L4) 5 Normal Plantarflexion (S1) 4- Good- Comments 20 heel raises Left Dorsiflexion (L4) 5 Normal Plantarflexion (S1) 5 Normal Comments 20 heel raises PT-OP-Q Treatments Start: 12/06/21 17:49 Freq: Status: Active Protocol: Document 02/27/22 09:54 [facility] (Rec: 02/27/22 11:21 [facility] [id number]) Cardio Equipment Bicycle (Upright) Duration (Minutes) 7 Resistance 8 Seat Position 8 Gym Equipment Shuttle Recovery Unilateral Squats Resistance 50# Shuttle Recovery Platform Stable Reps/Time 2x10 ea Therapeutic Exercises Standing Exercises lat step up Side bilateral Equipment Used 5 in Reps/Minutes 10 ea hip hike Side bilateral Equipment Used on step w/rail Reps/Minutes 15 ea step down Side bilateral Equipment Used 4 in step and rail prn Reps/Minutes 12 Comments mirror step up Standing Exercise Name w/alt march Side bilateral Resistance rail prn Equipment Used 8 in step Reps/Minutes 10 Comments VC for knee Manual Therapy Treatment Soft Tissue Mobilization ITB Body Location R Mobilization Type Strumming Intensity/Depth Moderate HS Body Location R distal Mobilization Type Rolling,Strumming Intensity/Depth Moderate Comments knee flex and APs PT-OP-R Modalities Start: 12/06/21 17:49 Freq: Status: Active Protocol: Document 02/27/22 09:54 [facility] (Rec: 02/27/22 11:21 [facility] [id number]) Hot Pack/Cold Pack Treatment Cold Pack Location R knee Patient Position Hooklying Treatment Duration (minutes) 10 Patient Tolerance Good PT-OP-S Aquatic Treatment Start: 01/24/22 12:48 Freq: Status: Active Protocol: Document 02/25/22 16:08 (Rec: 02/25/22 16:15 [id number]) Aquatics Treatment Pool Entry/Exit Pool Entry/Exit Method Stairs Assistance Independent Lower Extremity Exercises wide knee may Details quick feet Water Level Chest Level Reps/Duration 3 laps Comments hip ER jog Water Level Chest Level Reps/Duration 6 laps in shallow jumps Water Level Chest Level Reps/Duration 2x8 Comments soft landing rocking horse Details intervals Reps/Duration 30/15 2 min jacks Details intervals Reps/Duration 30/15 2 min cross country ski Details intervals Reps/Duration 30/[address] hip Body Position Standing Water Level Chest Level Equipment Ankle Floats Reps/Duration 10x ea Comments cues for alignment, core angagement Lower Extremity Stretches adductors Water Level Waist Level Equipment noodle Reps/Duration 2x30 Comments feet on wall; added body swing hip flexor Body Position Standing Water Level Waist Level Comments at wall quads Body Position Standing Water Level Chest Level Comments therapist assist HS Body Position Standing Water Level Chest Level Equipment Small Noodle Reps/Duration 2x30 [place] Activities [place] Activities Bicycle Backwards,Cross Country,Running,Hip Abduction/ Adduction,Sit Kicks Other Activities 3 way burpees pendulum hacky sac standing on noodle-staitc, dynamic Equipment flotation belt, BBs, ankle fins-sm Duration 15 PT-OP-T Assessment and Plan Start: 12/06/21 17:49 Freq: Status: Active Protocol: Document 02/27/22 09:54 [facility] (Rec: 02/27/22 11:21 [facility] [id number]) Physical Therapy Assessment Goals activity tolerance Short Term Goal (STG) Pt will be able to comfortably do sit to stand after sitting extended w/o inc pain 02/03-still pain STG Duration 02/09 Adjunct Physics Instructor Goal (LTG) Pt will be able to stand as needed and move around house without requiring mult rest breaks in day. 02/13-does not need as many breaks in the day LTG Duration 03/11 strength Short Term Goal (STG) Pt will be indep w/HEP for strength, ROM, balance and pain relief STG Duration achieved-advacning as able Adjunct Physics Instructor Goal (LTG) Pt will score at least 4+/5 on MMT LEs and at least 3/5 on LPM in all planes to show improved stability. 02/13-improved; 1 AP/PA L; 2 R LTG Duration 03/11 Three Impairment HECTOR 19/50 Impairment HECTOR Short Term Goal (STG) Pt will improve score of HECTOR to no greater than 13/50 to show improved functional ability. 02/13-nt STG Duration 01/29 Detention Goal (LTG) Pt will improve score of HECTOR to no greater than 4/50 to show improved functional ability. LTG Duration 03/11 Two Impairment stairs step to Impairment Uses substitute muscles to get a PF contraction. Short Term Goal (STG) Pt will be able to go up stairs reciprocally w/o rail w /o inc pain. STG Duration achieved 02/13 Detention Goal (LTG) Pt will be able to go down stairs reciprocally w/o rail w /o inc pain. 02/13-can but mild difficulty LTG Duration 03/11 Assessment Summary Assessment Pt did well with exercises today with improved form when cued. She showed greater ease w/leg press today overall. Still cues needed w/leg position in standing exercises . Manual improved flex Physical Therapy Plan Frequency and Duration Frequency of Treatment 2x/Week Plan of Care Start Date 12/10/21 Plan of Care End Date 03/11/22 Next Visit Focus/Plan Next Note Type Treatment Note Next Visit Plan cont to work hips and knee joint mobility manually; cont to work on quad and glute strength and core strength Aquatic: progress pt with increased moderate intensity exercises in shallow and deep with lightest resistance fins and hand bells.
--- NOTE | 2022-03-04 13:57 | PT.OTN ---
Current Diagnoses Pain in right knee (02/27/22) Pain in left knee (02/27/22) Lumbago with sciatica, right side (02/27/22) Abnormal posture (02/27/22) Weakness (02/27/22) Physical Therapy Treatment Note PT-OP-A Visit Information Start: 12/06/21 17:49 Freq: Status: Active Protocol: Document 03/04/22 13:45 LJ (Rec: 03/04/22 13:57 LJ [id number]) Out-Patient Physical Therapy Visit Information Visit Information Visit Type Aquatic Treatment Note Visit Note 09/07 Visit Start Time 11:00 Visit Stop Time 11:45 Total Visit Minutes 45 Visit Number 18 Number of DATA SYSTEMS MANAGER Visits 1 PT-OP-B Current Condition Start: 12/06/21 17:49 Freq: Status: Active Protocol: Document 12/10/21 12:12 [facility] (Rec: 12/10/21 13:49 [facility] [id number]) Current Condition History of Current Condition Current Complaints B knee pain & sciatic pain R buttocks and down leg History of Current Condition Pt reports B knee pain for years without injuries but arthritis and pt notices she is knock-kneed. Notices her feet are off from that. Pt reports sciatic pain has been going on about 10 months. It was around when [facility] moved here . Ant lat thigh pain started w /move and she had a cramp in lat quad region after. Pt reprots buttocks and leg pain that is worst at night. She has to roll back and forth at night. She is getting a sleep study in Dec. Pt erports she has to take ibuprfoen often d/ t pain more so the last 6 months or so. Can only be active for so long and then has to put her feet up. 1 year ago, she had a home gym and was working with a water trainer 2x/ week. This last year, she feels like she is falling apart. She has a lot going on, so she hasn't done as much exercise and self care. Reports she has recently irritated her L shoulder and things she lifted something sideways that was too heavy and now can;t abd or IR and it pops occ. Prior Treatments and Tests L knee xray: Bones: No fractures or dislocations. Moderate narrowing of the lateral compartment joint space with prominent osteophytosis and sclerosis of the lateral tibial plateau. The medial and patellofemoral joint spaces are maintained but demonstrate periarticular osteophytosis. Soft tissues: Small joint effusion. No suspicious soft tissue calcifications. 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 no other treatment tried besides one injection in her knee over 5 years ago that didn't help much. Treatment Goals Patient/Caregiver Goals Get to where she doesn't have LB/hip pain, get her legs stronger so she can be more stable w/knees, be able to increase stamina PT-OP-C Subjective Start: 12/06/21 17:49 Freq: Status: Active Protocol: Document 03/04/22 13:45 LJ (Rec: 03/04/22 13:57 LJ [id number]) OP-PT Subjective Patient Comments Patient Comments Pt states she has no pain anymore and will continue aquatic exercise after DC PT-OP-G Mobility & Gait Start: 12/06/21 17:49 Freq: Status: Active Protocol: Document 12/10/21 12:12 [facility] (Rec: 12/10/21 13:49 [facility] [id number]) OP Gait Assessment Comments Gait Comments no UE motion, dec trunk motion , dec push off B, lat lean b PT-OP-J Posture/Palpation/Skin Start: 12/06/21 17:49 Freq: Status: Active Protocol: Document 12/10/21 12:12 [facility] (Rec: 12/10/21 13:49 [facility] [id number]) Posture Evaluation [facility] Postural Classification System Becki Postural Classifications Posterior/Anterior Vertebral Compression Test 1 Lumbar Protective Mechanism Left AP 0 Lumbar Protective Mechanism Right AP 0 Lumbar Protective Mechanism Left PA 1 Lumbar Protective Mechanism Right PA 3 Comments Posture Comments SLS 10 sec L, 9 sec R w/ excessive UE motion;B kne evalgus, forefoot varus, rearfoot valgus; min R greater troch higher, R iliac crest higher PT-OP-K Range of Motion Start: 12/06/21 17:49 Freq: Status: Active Protocol: Document 12/10/21 12:12 [facility] (Rec: 12/10/21 13:49 [facility] [id number]) Lumbar Spine Range of Motion Lumbar Spine Active Degrees Rotation Left 48 Rotation Right 45 Comments 1 in above patella w/lumbar only, 2 in above ankle flex, ext about 80%; SB equal B good ROM Knee Goniometric Range of Motion Knee Right Flexion Active (degrees) 90 Extension Active (degrees) 10 Left Flexion Active (degrees) 113 Extension Active (degrees) 10 PT-OP-L Special Tests Start: 12/06/21 17:49 Freq: Status: Active Protocol: Document 12/10/21 12:12 [facility] (Rec: 12/10/21 13:49 [facility] [id number]) Special Tests Lumbar Spine Special Tests Chay's Test Results neg B Milind Test Results quads tight B Straight Leg Raise Test Results 91 L; 68 R Slump Test Results tightness R PT-OP-M Strength Start: 12/06/21 17:49 Freq: Status: Active Protocol: Document 02/13/22 10:40 [facility] (Rec: 02/13/22 11:39 [facility] [id number]) Hip Strength Hip Manual Muscle Testing Right Flexion (L2) 4+ Good+ Extension (S1) 3+ Fair+ Abduction 3 Fair Adduction 5 Normal External Rotation 4 Good Internal Rotation 5 Normal Comments crepitis B w/ER Left Flexion (L2) 4 Good Extension (S1) 4- Good- Abduction 3+ Fair+ Adduction 4+ Good+ External Rotation 4 Good Internal Rotation 5 Normal Knee Strength Knee Manual Muscle Testing Right Flexion (S2) 5 Normal Extension (L3) 4+ Good+ Left Flexion (S2) 5 Normal Extension (L3) 5 Normal Ankle/Foot Strength Ankle and Foot Manual Muscle Testing Right Dorsiflexion (L4) 5 Normal Plantarflexion (S1) 4- Good- Comments 20 heel raises Left Dorsiflexion (L4) 5 Normal Plantarflexion (S1) 5 Normal Comments 20 heel raises PT-OP-Q Treatments Start: 12/06/21 17:49 Freq: Status: Active Protocol: Document 02/27/22 09:54 [facility] (Rec: 02/27/22 11:21 [facility] [id number]) Cardio Equipment Bicycle (Upright) Duration (Minutes) 7 Resistance 8 Seat Position 8 Gym Equipment Shuttle Recovery Unilateral Squats Resistance 50# Shuttle Recovery Platform Stable Reps/Time 2x10 ea Therapeutic Exercises Standing Exercises lat step up Side bilateral Equipment Used 5 in Reps/Minutes 10 ea hip hike Side bilateral Equipment Used on step w/rail Reps/Minutes 15 ea step down Side bilateral Equipment Used 4 in step and rail prn Reps/Minutes 12 Comments mirror step up Standing Exercise Name w/alt march Side bilateral Resistance rail prn Equipment Used 8 in step Reps/Minutes 10 Comments VC for knee Manual Therapy Treatment Soft Tissue Mobilization ITB Body Location R Mobilization Type Strumming Intensity/Depth Moderate HS Body Location R distal Mobilization Type Rolling,Strumming Intensity/Depth Moderate Comments knee flex and APs PT-OP-R Modalities Start: 12/06/21 17:49 Freq: Status: Active Protocol: Document 02/27/22 09:54 LR (Rec: 02/27/22 11:21 [facility] [id number]) Hot Pack/Cold Pack Treatment Cold Pack Location R knee Patient Position Hooklying Treatment Duration (minutes) 10 Patient Tolerance Good PT-OP-S Aquatic Treatment Start: 01/24/22 12:48 Freq: Status: Active Protocol: Document 03/04/22 13:45 LJ (Rec: 03/04/22 13:57 LJ [id number]) Aquatics Treatment Pool Entry/Exit Pool Entry/Exit Method Stairs Assistance Independent Water Walking backward Water Level Chest Level Walking Equipment Resistance Fins forward Water Level Chest Level Walking Equipment Resistance Fins Comments fast Lower Extremity Exercises jog Water Level Chest Level Reps/Duration 5 min shallow Comments warm-up jumps Water Level Waist Level Equipment Resistance Fins Reps/Duration 2x8 Comments soft landing jacks Details intervals Water Level Chest Level Equipment Resistance Fins, sm bells Reps/Duration 30/15 3 min cross country ski Details intervals Water Level Chest Level Equipment Resistance Fins, sm bells Reps/Duration 30/15 3 min hamstring curl Details intervals Water Level Chest Level Equipment Resistance Fins, sm bells Reps/Duration 30/[address] hip Body Position Standing Water Level Chest Level Equipment Resistance Fins Reps/Duration 10x ea Lower Extremity Stretches adductors Water Level Waist Level Equipment noodle Reps/Duration 2x30 Comments feet on wall; added body swing hip flexor Body Position Standing Water Level Waist Level Comments at wall quads Body Position Standing Water Level Chest Level Comments therapist assist ITB Body Position Standing Water Level Chest Level Equipment Small Noodle Reps/Duration 2x30 HS Body Position Standing Water Level Chest Level Equipment Small Noodle Reps/Duration 2x30 Spinal Exercises rows Details cords Body Position Standing Water Level Chest Level Equipment stretch cords Reps/Duration 10 Comments cues for scap depression rotation Details cords Body Position Standing Water Level Waist Level Equipment stretch cords 1 lg Reps/Duration 10 B Comments cue ecc. control [place] Activities Other Activities 3 way burpees pendulum shoot thru recumbant bike B LE forward kick flutter kick Equipment flotation belt, BBs, ankle fins-sm Duration 15 Comments 3 cycles of above exercises 30 each PT-OP-T Assessment and Plan Start: 12/06/21 17:49 Freq: Status: Active Protocol: Document 03/04/22 13:45 (Rec: 03/04/22 13:57 [id number]) Physical Therapy Assessment Goals activity tolerance Short Term Goal (STG) Pt will be able to comfortably do sit to stand after sitting extended w/o inc pain 02/03-still pain STG Duration 02/09 Group Home Goal (LTG) Pt will be able to stand as needed and move around house without requiring mult rest breaks in day. 02/13-does not need as many breaks in the day LTG Duration 03/11 strength Short Term Goal (STG) Pt will be indep w/HEP for strength, ROM, balance and pain relief STG Duration achieved-advacning as able Process Mechanic Goal (LTG) Pt will score at least 4+/5 on MMT LEs and at least 3/5 on LPM in all planes to show improved stability. 02/13-improved; 1 AP/PA L; 2 R LTG Duration 03/11 Three Impairment HECTOR 19/50 Impairment HECTOR Short Term Goal (STG) Pt will improve score of HECTOR to no greater than 13/50 to show improved functional ability. 02/13-nt STG Duration 01/29 Process Mechanic Goal (LTG) Pt will improve score of HECTOR to no greater than 4/50 to show improved functional ability. LTG Duration 03/11 Two Impairment stairs step to Impairment Uses substitute muscles to get a PF contraction. Short Term Goal (STG) Pt will be able to go up stairs reciprocally w/o rail w /o inc pain. STG Duration achieved 02/13 Process Mechanic Goal (LTG) Pt will be able to go down stairs reciprocally w/o rail w /o inc pain. 02/13-can but mild difficulty LTG Duration 03/11 Assessment Summary Assessment Pt doing well with increase in aerobic exercises. She remained in the pool for several minutes continuing to exercise after session ended. She is appropriate for community based water aerobics classes at the intermediate level. Physical Therapy Plan Frequency and Duration Frequency of Treatment 2x/Week Plan of Care Start Date 12/10/21 Plan of Care End Date 03/11/22 Therapeutic Interventions Therapeutic Interventions Aquatic Therapy,Balance Training,Gait Training,Home Exercise Program,Joint Mobilizations,Manual Therapy, Neuromuscular Re-education, Orthotic/Prosthetic Management ,Patient/Caregiver Education, Self-Care/Home Management,Soft Tissue Mobilization,Taping, Therapeutic Activities, Therapeutic Exercises Modalities Cold Pack/Ice Massage,Electric Stimulation,Hot Packs, Traction- Mechanical, Ultrasound Next Visit Focus/Plan Next Note Type Treatment Note Next Visit Plan cont to work hips and knee joint mobility manually; cont to work on quad and glute strength and core strength Aquatic: progress pt with increased moderate intensity exercises in shallow and deep with lightest resistance fins and hand bells.
--- NOTE | 2022-03-06 11:23 | PT.OTN ---
Current Diagnoses Pain in right knee (03/06/22) Pain in left knee (03/06/22) Lumbago with sciatica, right side (03/06/22) Abnormal posture (03/06/22) Weakness (03/06/22) Physical Therapy Treatment Note PT-OP-A Visit Information Start: 12/06/21 17:49 Freq: Status: Active Protocol: Document 03/06/22 09:46 [facility] (Rec: 03/06/22 11:22 [facility] [id number]) Out-Patient Physical Therapy Visit Information Visit Information Visit Type Progress Note Visit Note 10/07 Visit Start Time 09:48 Visit Stop Time 10:40 Total Visit Minutes 52 Visit Number 19 Number of CHEMIST WATER PURIFICATION Visits 0 PT-OP-B Current Condition Start: 12/06/21 17:49 Freq: Status: Active Protocol: Document 12/10/21 12:12 [facility] (Rec: 12/10/21 13:49 [facility] [id number]) Current Condition History of Current Condition Current Complaints B knee pain & sciatic pain R buttocks and down leg History of Current Condition Pt reports B knee pain for years without injuries but arthritis and pt notices she is knock-kneed. Notices her feet are off from that. Pt reports sciatic pain has been going on about 10 months. It was around when [facility] moved here . Ant lat thigh pain started w /move and she had a cramp in lat quad region after. Pt reprots buttocks and leg pain that is worst at night. She has to roll back and forth at night. She is getting a sleep study in Dec. Pt erports she has to take ibuprfoen often d/ t pain more so the last 6 months or so. Can only be active for so long and then has to put her feet up. 1 year ago, she had a home gym and was working with a weight trainer 2x/ week. This last year, she feels like she is falling apart. She has a lot going on, so she hasn't done as much exercise and self care. Reports she has recently irritated her L shoulder and things she lifted something sideways that was too heavy and now can;t abd or IR and it pops occ. Prior Treatments and Tests L knee xray: Bones: No fractures or dislocations. Moderate narrowing of the lateral compartment joint space with prominent osteophytosis and sclerosis of the lateral tibial plateau. The medial and patellofemoral joint spaces are maintained but demonstrate periarticular osteophytosis. Soft tissues: Small joint effusion. No suspicious soft tissue calcifications. 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 no other treatment tried besides one injection in her knee over 5 years ago that didn't help much. Treatment Goals Patient/Caregiver Goals Get to where she doesn't have LB/hip pain, get her legs stronger so she can be more stable w/knees, be able to increase stamina PT-OP-C Subjective Start: 12/06/21 17:49 Freq: Status: Active Protocol: Document 03/06/22 09:46 [facility] (Rec: 03/06/22 11:22 [facility] [id number]) OP-PT Subjective Patient Comments Patient Comments Back can still bother her some at night and is less often. PT-OP-G Mobility & Gait Start: 12/06/21 17:49 Freq: Status: Active Protocol: Document 12/10/21 12:12 [facility] (Rec: 12/10/21 13:49 [facility] [id number]) OP Gait Assessment Comments Gait Comments no UE motion, dec trunk motion , dec push off B, lat lean b PT-OP-J Posture/Palpation/Skin Start: 12/06/21 17:49 Freq: Status: Active Protocol: Document 03/06/22 09:46 [facility] (Rec: 03/06/22 11:23 [facility] [id number]) Posture Evaluation [facility] Postural Classification System Lumbar Protective Mechanism Left AP 1 Lumbar Protective Mechanism Right AP 2 Lumbar Protective Mechanism Left PA 1 Lumbar Protective Mechanism Right PA 2 PT-OP-K Range of Motion Start: 12/06/21 17:49 Freq: Status: Active Protocol: Document 12/10/21 12:12 [facility] (Rec: 12/10/21 13:49 [facility] [id number]) Lumbar Spine Range of Motion Lumbar Spine Active Degrees Rotation Left 48 Rotation Right 45 Comments 1 in above patella w/lumbar only, 2 in above ankle flex, ext about 80%; SB equal B good ROM Knee Goniometric Range of Motion Knee Right Flexion Active (degrees) 90 Extension Active (degrees) 10 Left Flexion Active (degrees) 113 Extension Active (degrees) 10 PT-OP-L Special Tests Start: 12/06/21 17:49 Freq: Status: Active Protocol: Document 12/10/21 12:12 [facility] (Rec: 12/10/21 13:49 [facility] [id number]) Special Tests Lumbar Spine Special Tests Chay's Test Results neg B Milind Test Results quads tight B Straight Leg Raise Test Results 91 L; 68 R Slump Test Results tightness R PT-OP-M Strength Start: 12/06/21 17:49 Freq: Status: Active Protocol: Document 03/06/22 09:46 [facility] (Rec: 03/06/22 11:22 [facility] [id number]) Hip Strength Hip Manual Muscle Testing Right Flexion (L2) 4+ Good+ Extension (S1) 4- Good- Abduction 3+ Fair+ Adduction 5 Normal External Rotation 4+ Good+ Internal Rotation 5 Normal Comments crepitis B & shifting of knee w/ER Left Flexion (L2) 5 Normal Extension (S1) 4+ Good+ Abduction 4 Good Adduction 5 Normal External Rotation 4+ Good+ Internal Rotation 5 Normal Knee Strength Knee Manual Muscle Testing Right Flexion (S2) 5 Normal Extension (L3) 5 Normal Left Flexion (S2) 5 Normal Extension (L3) 5 Normal Ankle/Foot Strength Ankle and Foot Manual Muscle Testing Right Dorsiflexion (L4) 5 Normal Plantarflexion (S1) 5 Normal Comments 20 heel raises Left Dorsiflexion (L4) 5 Normal Plantarflexion (S1) 5 Normal Comments 20 heel raises PT-OP-Q Treatments Start: 12/06/21 17:49 Freq: Status: Active Protocol: Document 03/06/22 09:46 [facility] (Rec: 03/06/22 11:22 [facility] [id number]) Cardio Equipment Bicycle (Upright) Duration (Minutes) 6 Resistance 10 Seat Position 8 Gym Equipment Shuttle Recovery Unilateral Squats Resistance 50# Shuttle Recovery Platform Stable Reps/Time 2x10 ea Gait Training Gait Activity stairs Comments up/down lobby stairs (28 6 in stairs )-cues for full ext up no rail; down sliding hand on rail w/cues for 'quiet wt shifts Comments fwd in mirror x15 B-cues for full wt shift and no trunk lean Manual Therapy Treatment Soft Tissue Mobilization glutes Body Location R glutes and piriformis Mobilization Type Sustained Pressure Intensity/Depth Moderate Body Position Prone Comments hip IR/ER Joint Mobilizations lumbar Joint L5 distraction FM s/l Hip Joint on axis ER FM PT-OP-R Modalities Start: 12/06/21 17:49 Freq: Status: Active Protocol: Document 03/06/22 09:46 [facility] (Rec: 03/06/22 11:23 [facility] [id number]) Hot Pack/Cold Pack Treatment Cold Pack Location LS Patient Position Hooklying Treatment Duration (minutes) 10 Patient Tolerance Good PT-OP-S Aquatic Treatment Start: 01/24/22 12:48 Freq: Status: Active Protocol: Document 03/04/22 13:45 LJ (Rec: 03/04/22 13:57 LJ [id number]) Aquatics Treatment Pool Entry/Exit Pool Entry/Exit Method Stairs Assistance Independent Water Walking backward Water Level Chest Level Walking Equipment Resistance Fins forward Water Level Chest Level Walking Equipment Resistance Fins Comments fast Lower Extremity Exercises jog Water Level Chest Level Reps/Duration 5 min shallow Comments warm-up jumps Water Level Waist Level Equipment Resistance Fins Reps/Duration 2x8 Comments soft landing jacks Details intervals Water Level Chest Level Equipment Resistance Fins, sm bells Reps/Duration 30/15 3 min cross country ski Details intervals Water Level Chest Level Equipment Resistance Fins, sm bells Reps/Duration 30/15 3 min hamstring curl Details intervals Water Level Chest Level Equipment Resistance Fins, sm bells Reps/Duration 30/[address] hip Body Position Standing Water Level Chest Level Equipment Resistance Fins Reps/Duration 10x ea Lower Extremity Stretches adductors Water Level Waist Level Equipment noodle Reps/Duration 2x30 Comments feet on wall; added body swing hip flexor Body Position Standing Water Level Waist Level Comments at wall quads Body Position Standing Water Level Chest Level Comments therapist assist ITB Body Position Standing Water Level Chest Level Equipment Small Noodle Reps/Duration 2x30 HS Body Position Standing Water Level Chest Level Equipment Small Noodle Reps/Duration 2x30 Spinal Exercises rows Details cords Body Position Standing Water Level Chest Level Equipment stretch cords Reps/Duration 10 Comments cues for scap depression rotation Details cords Body Position Standing Water Level Waist Level Equipment stretch cords 1 lg Reps/Duration 10 B Comments cue ecc. control [place] Activities Other Activities 3 way burpees pendulum shoot thru recumbant bike B LE forward kick flutter kick Equipment flotation belt, BBs, ankle fins-sm Duration 15 Comments 3 cycles of above exercises 30 each PT-OP-T Assessment and Plan Start: 12/06/21 17:49 Freq: Status: Active Protocol: Document 03/06/22 09:46 [facility] (Rec: 03/06/22 11:22 [facility] [id number]) Physical Therapy Assessment Goals balance Impairment 2 sec R; 10 sec L-heavy use of UEs Clinical Rehabilitation Coordinator Goal (LTG) Pt will improve SLS time to at least 15 B LTG Duration 04/29 back pain Short Term Goal (STG) Be able to sit as needed w/o inc back pain with transition into standing. STG Duration 03/31 Clinical Rehabilitation Coordinator Goal (LTG) Pt will be able to sleep at night w/o issues w/back and buttocks pain. LTG Duration 04/29 activity tolerance Short Term Goal (STG) Pt will be able to comfortably do sit to stand after sitting extended w/o inc pain 02/03-still pain STG Duration achieved 03/06 Clinical Rehabilitation Coordinator Goal (LTG) Pt will be able to stand as needed and move around house without requiring mult rest breaks in day. 02/13-does not need as many breaks in the day LTG Duration achieved 03/06 strength Short Term Goal (STG) Pt will be indep w/HEP for strength, ROM, balance and pain relief STG Duration achieved-advacning as able Fdc Goal (LTG) Pt will score at least 4+/5 on MMT LEs and at least 3/5 on LPM in all planes to show improved stability. 02/13-improved; 1 AP/PA L; 2 R 03/06-improving LTG Duration 04/29 Three Impairment HECTOR 19/50 Impairment HECTOR Short Term Goal (STG) Pt will improve score of HECTOR to no greater than 13/50 to show improved functional ability. 02/13-nt STG Duration achieved to 5/50 Clinical Rehabilitation Coordinator Goal (LTG) Pt will improve score of HECTOR to no greater than 4/50 to show improved functional ability. 03/06-improved to 5/50 LTG Duration 04/29 Two Impairment stairs step to Short Term Goal (STG) Pt will be able to go up stairs reciprocally w/o rail w /o inc pain. STG Duration achieved 02/13 Clinical Rehabilitation Coordinator Goal (LTG) Pt will be able to go down stairs reciprocally w/o rail w /o inc pain. 02/13-can but mild difficulty 03/06-mild pain R knee but uses rail for safey LTG Duration 04/29 Assessment Summary Assessment Pt is making excellent progress w/PT and cont to feel more capable w/functional activity. She is much stronger and shows imrpoved ROM of R knee. She still does have dec core control and some back pain that limits her daily life and would benefit from cont PT to cont to work on back/buttocks pain and cont to improve funcitonal mobility of LEs to dec knee pain w/ stairs and improve pt stability. Physical Therapy Plan Frequency and Duration Frequency of Treatment 2x/Week Duration of treatment (weeks) 8 Plan of Care Start Date 03/06/22 Plan of Care End Date 04/29/22 Therapeutic Interventions Therapeutic Interventions Aquatic Therapy,Balance Training,Gait Training,Home Exercise Program,Joint Mobilizations,Manual Therapy, Neuromuscular Re-education, Orthotic/Prosthetic Management ,Patient/Caregiver Education, Self-Care/Home Management,Soft Tissue Mobilization,Taping, Therapeutic Activities, Therapeutic Exercises Modalities Cold Pack/Ice Massage,Electric Stimulation,Hot Packs, Traction- Mechanical, Ultrasound Next Visit Focus/Plan Next Note Type Treatment Note Next Visit Plan cont to work hips and knee joint mobility manually; cont to work on quad and glute strength and core strength Aquatic: progress pt with increased moderate intensity exercises in shallow and deep with lightest resistance fins and hand bells.
--- NOTE | 2022-03-06 11:23 | PT.OPPOC ---
Physical, Occupational & Speech Therapy At [facility] Current Diagnoses Pain in right knee (03/06/22) Pain in left knee (03/06/22) Lumbago with sciatica, right side (03/06/22) Abnormal posture (03/06/22) Weakness (03/06/22) Visit Care Team Role Provider Type JEANNA Villatoro Attending Provider Physician Family Provider Primary Care Provider Referring Provider Specialty: Nursing Address: [address] [place] [address], [id number] Email: Plan Of Care PT-OP-T Assessment and Plan Start: 12/06/21 17:49 Freq: Status: Active Protocol: Document 03/06/22 09:46 [facility] (Rec: 03/06/22 11:22 [facility] [id number]) Physical Therapy Assessment Goals balance Impairment 2 sec R; 10 sec L-heavy use of UEs Librarian Head Goal (LTG) Pt will improve SLS time to at least 15 B LTG Duration 04/29 back pain Short Term Goal (STG) Be able to sit as needed w/o inc back pain with transition into standing. STG Duration 03/31 Librarian Head Goal (LTG) Pt will be able to sleep at night w/o issues w/back and buttocks pain. LTG Duration 04/29 activity tolerance Short Term Goal (STG) Pt will be able to comfortably do sit to stand after sitting extended w/o inc pain 02/03-still pain STG Duration achieved 03/06 Librarian Head Goal (LTG) Pt will be able to stand as needed and move around house without requiring mult rest breaks in day. 02/13-does not need as many breaks in the day LTG Duration achieved 03/06 strength Short Term Goal (STG) Pt will be indep w/HEP for strength, ROM, balance and pain relief STG Duration achieved-advacning as able Senior Living Goal (LTG) Pt will score at least 4+/5 on MMT LEs and at least 3/5 on LPM in all planes to show improved stability. 02/13-improved; 1 AP/PA L; 2 R 03/06-improving LTG Duration 04/29 Three Impairment HECTOR 19/50 Impairment HECTOR Short Term Goal (STG) Pt will improve score of HECTOR to no greater than 13/50 to show improved functional ability. 02/13-nt STG Duration achieved to 5/50 Librarian Head Goal (LTG) Pt will improve score of HECTOR to no greater than 4/50 to show improved functional ability. 03/06-improved to 5/50 LTG Duration 04/29 Two Impairment stairs step to Short Term Goal (STG) Pt will be able to go up stairs reciprocally w/o rail w /o inc pain. STG Duration achieved 02/13 Librarian Head Goal (LTG) Pt will be able to go down stairs reciprocally w/o rail w /o inc pain. 02/13-can but mild difficulty 03/06-mild pain R knee but uses rail for safey LTG Duration 04/29 Assessment Summary Assessment Pt is making excellent progress w/PT and cont to feel more capable w/functional activity. She is much stronger and shows imrpoved ROM of R knee. She still does have dec core control and some back pain that limits her daily life and would benefit from cont PT to cont to work on back/buttocks pain and cont to improve funcitonal mobility of LEs to dec knee pain w/ stairs and improve pt stability. Physical Therapy Plan Frequency and Duration Frequency of Treatment 2x/Week Duration of treatment (weeks) 8 Plan of Care Start Date 03/06/22 Plan of Care End Date 04/29/22 Therapeutic Interventions Therapeutic Interventions Aquatic Therapy,Balance Training,Gait Training,Home Exercise Program,Joint Mobilizations,Manual Therapy, Neuromuscular Re-education, Orthotic/Prosthetic Management ,Patient/Caregiver Education, Self-Care/Home Management,Soft Tissue Mobilization,Taping, Therapeutic Activities, Therapeutic Exercises Modalities Cold Pack/Ice Massage,Electric Stimulation,Hot Packs, Traction- Mechanical, Ultrasound Next Visit Focus/Plan Next Note Type Treatment Note Next Visit Plan cont to work hips and knee joint mobility manually; cont to work on quad and glute strength and core strength Aquatic: progress pt with increased moderate intensity exercises in shallow and deep with lightest resistance fins and hand bells. Plan of Care Dates Plan of Care Start Date 03/06/22 Plan of Care End Date 04/29/22 Electronically Signed by: Zamzam Schrader, PT 03/06/22 2043 If you are in agreement with this Plan of Care, please return a signed and dated copy. I have reviewed this Plan of Care and certify that the skilled therapy services above are required to meet the patient?s needs. Physician Signature Date Printed Name and Credentials Clinical Instructor Signature Printed Name and Credentials
--- NOTE | 2022-03-11 14:37 | PT.OTN ---
Current Diagnoses Pain in right knee (03/06/22) Pain in left knee (03/06/22) Lumbago with sciatica, right side (03/06/22) Abnormal posture (03/06/22) Weakness (03/06/22) Physical Therapy Treatment Note PT-OP-A Visit Information Start: 12/06/21 17:49 Freq: Status: Active Protocol: Document 03/11/22 14:23 [facility] (Rec: 03/11/22 14:37 [facility] [id number]) Out-Patient Physical Therapy Visit Information Visit Information Visit Type Aquatic Treatment Note Visit Note 11/07 Visit Start Time 11:00 Visit Stop Time 11:45 Total Visit Minutes 45 Visit Number 20 Number of GREEN PIPEFITTER Visits 1 PT-OP-B Current Condition Start: 12/06/21 17:49 Freq: Status: Active Protocol: Document 12/10/21 12:12 [facility] (Rec: 12/10/21 13:49 [facility] [id number]) Current Condition History of Current Condition Current Complaints B knee pain & sciatic pain R buttocks and down leg History of Current Condition Pt reports B knee pain for years without injuries but arthritis and pt notices she is knock-kneed. Notices her feet are off from that. Pt reports sciatic pain has been going on about 10 months. It was around when [facility] moved here . Ant lat thigh pain started w /move and she had a cramp in lat quad region after. Pt reprots buttocks and leg pain that is worst at night. She has to roll back and forth at night. She is getting a sleep study in Dec. Pt erports she has to take ibuprfoen often d/ t pain more so the last 6 months or so. Can only be active for so long and then has to put her feet up. 1 year ago, she had a home gym and was working with a ehr trainer 2x/ week. This last year, she feels like she is falling apart. She has a lot going on, so she hasn't done as much exercise and self care. Reports she has recently irritated her L shoulder and things she lifted something sideways that was too heavy and now can;t abd or IR and it pops occ. Prior Treatments and Tests L knee xray: Bones: No fractures or dislocations. Moderate narrowing of the lateral compartment joint space with prominent osteophytosis and sclerosis of the lateral tibial plateau. The medial and patellofemoral joint spaces are maintained but demonstrate periarticular osteophytosis. Soft tissues: Small joint effusion. No suspicious soft tissue calcifications. 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 no other treatment tried besides one injection in her knee over 5 years ago that didn't help much. Treatment Goals Patient/Caregiver Goals Get to where she doesn't have LB/hip pain, get her legs stronger so she can be more stable w/knees, be able to increase stamina PT-OP-C Subjective Start: 12/06/21 17:49 Freq: Status: Active Protocol: Document 03/11/22 14:23 [facility] (Rec: 03/11/22 14:37 [facility] [id number]) OP-PT Subjective Patient Comments Patient Comments Experiencing knee pain behind left knee. Not sure how or what she did to cause it. PT-OP-G Mobility & Gait Start: 12/06/21 17:49 Freq: Status: Active Protocol: Document 12/10/21 12:12 [facility] (Rec: 12/10/21 13:49 [facility] [id number]) OP Gait Assessment Comments Gait Comments no UE motion, dec trunk motion , dec push off B, lat lean b PT-OP-J Posture/Palpation/Skin Start: 12/06/21 17:49 Freq: Status: Active Protocol: Document 03/06/22 09:46 [facility] (Rec: 03/06/22 11:23 [facility] [id number]) Posture Evaluation [facility] Postural Classification System Lumbar Protective Mechanism Left AP 1 Lumbar Protective Mechanism Right AP 2 Lumbar Protective Mechanism Left PA 1 Lumbar Protective Mechanism Right PA 2 PT-OP-K Range of Motion Start: 12/06/21 17:49 Freq: Status: Active Protocol: Document 12/10/21 12:12 [facility] (Rec: 12/10/21 13:49 [facility] [id number]) Lumbar Spine Range of Motion Lumbar Spine Active Degrees Rotation Left 48 Rotation Right 45 Comments 1 in above patella w/lumbar only, 2 in above ankle flex, ext about 80%; SB equal B good ROM Knee Goniometric Range of Motion Knee Right Flexion Active (degrees) 90 Extension Active (degrees) 10 Left Flexion Active (degrees) 113 Extension Active (degrees) 10 PT-OP-L Special Tests Start: 09/08/22 17:49 Freq: Status: Active Protocol: Document 12/10/21 12:12 [facility] (Rec: 12/10/21 13:49 [facility] [id number]) Special Tests Lumbar Spine Special Tests Chay's Test Results neg B Milind Test Results quads tight B Straight Leg Raise Test Results 91 L; 68 R Slump Test Results tightness R PT-OP-M Strength Start: 12/06/21 17:49 Freq: Status: Active Protocol: Document 03/06/22 09:46 [facility] (Rec: 03/06/22 11:22 [facility] [id number]) Hip Strength Hip Manual Muscle Testing Right Flexion (L2) 4+ Good+ Extension (S1) 4- Good- Abduction 3+ Fair+ Adduction 5 Normal External Rotation 4+ Good+ Internal Rotation 5 Normal Comments crepitis B & shifting of knee w/ER Left Flexion (L2) 5 Normal Extension (S1) 4+ Good+ Abduction 4 Good Adduction 5 Normal External Rotation 4+ Good+ Internal Rotation 5 Normal Knee Strength Knee Manual Muscle Testing Right Flexion (S2) 5 Normal Extension (L3) 5 Normal Left Flexion (S2) 5 Normal Extension (L3) 5 Normal Ankle/Foot Strength Ankle and Foot Manual Muscle Testing Right Dorsiflexion (L4) 5 Normal Plantarflexion (S1) 5 Normal Comments 20 heel raises Left Dorsiflexion (L4) 5 Normal Plantarflexion (S1) 5 Normal Comments 20 heel raises PT-OP-Q Treatments Start: 12/06/21 17:49 Freq: Status: Active Protocol: Document 03/06/22 09:46 [facility] (Rec: 03/06/22 11:22 [facility] [id number]) Cardio Equipment Bicycle (Upright) Duration (Minutes) 6 Resistance 10 Seat Position 8 Gym Equipment Shuttle Recovery Unilateral Squats Resistance 50# Shuttle Recovery Platform Stable Reps/Time 2x10 ea Gait Training Gait Activity stairs Comments up/down lobby stairs (28 6 in stairs )-cues for full ext up no rail; down sliding hand on rail w/cues for 'quiet wt shifts Comments fwd in mirror x15 B-cues for full wt shift and no trunk lean Manual Therapy Treatment Soft Tissue Mobilization glutes Body Location R glutes and piriformis Mobilization Type Sustained Pressure Intensity/Depth Moderate Body Position Prone Comments hip IR/ER Joint Mobilizations lumbar Joint L5 distraction FM s/l Hip Joint on axis ER FM PT-OP-R Modalities Start: 12/06/21 17:49 Freq: Status: Active Protocol: Document 03/06/22 09:46 [facility] (Rec: 03/06/22 11:23 [facility] [id number]) Hot Pack/Cold Pack Treatment Cold Pack Location LS Patient Position Hooklying Treatment Duration (minutes) 10 Patient Tolerance Good PT-OP-S Aquatic Treatment Start: 01/24/22 12:48 Freq: Status: Active Protocol: Document 03/11/22 14:23 LJ (Rec: 03/11/22 14:37 [facility] [id number]) Aquatics Treatment Pool Entry/Exit Pool Entry/Exit Method Stairs Assistance Independent Water Walking Tandem Gait Water Level Chest Level straight leg march Water Level Chest Level march Water Level Chest Level Comments reaching to opp side side Water Level Chest Level backward Water Level Chest Level forward Water Level Chest Level Lower Extremity Exercises jog Water Level Chest Level Reps/Duration 5 min shallow Comments warm-up rocking horse Details intervals Reps/Duration 30/15 2 min jacks Details intervals Water Level Chest Level Reps/Duration 30/15 3 min cross country ski Details intervals Water Level Chest Level Reps/Duration 30/[address] hip Body Position Standing Water Level Chest Level Equipment Resistance Fins Reps/Duration 10x ea Lower Extremity Stretches adductors Water Level Waist Level Equipment noodle Reps/Duration 2x30 Comments feet on wall; added body swing hip flexor Body Position Standing Water Level Waist Level Reps/Duration 2x30 Comments at wall quads Body Position Standing Water Level Chest Level Reps/Duration 2x30 Comments therapist assist ITB Body Position Standing Water Level Chest Level Equipment Small Noodle Reps/Duration 2x30 HS Body Position Standing Water Level Chest Level Equipment Small Noodle Reps/Duration 2x30 Spinal Exercises rotation Details cords Body Position Standing Water Level Waist Level Equipment stretch cords 1 lg Reps/Duration 10 B Comments cue ecc. control wonderboard Body Position Sitting Reps/Duration 3 min Comments good control Balance boxes Details SLS; up/down; side step [place] Activities [place] Activities Bicycle Backwards,Cross Country,Hip Abduction/ Adduction,Sit Kicks Other Activities pendulum, shoot thru DLS crunches Equipment belt, BBs Duration 20 Comments exercises kept lower level because of knee pain PT-OP-T Assessment and Plan Start: 12/06/21 17:49 Freq: Status: Active Protocol: Document 03/11/22 14:23 [facility] (Rec: 03/11/22 14:37 [facility] [id number]) Physical Therapy Assessment Rehab Potential Rehabilitation Potential Good Evaluation Complexity Number of Personal Factors/Comorbidities 3 or More Number of Body Systems Impaired 4 or More Clinical Presentation at Evaluation Evolving Impairments Impairments Activity Tolerance,Balance, Functional Activities, Functional Mobility,Gait,Pain, Posture,ROM,Soft Tissue Mobility,Strength,Transfers Goals balance Impairment 2 sec R; 10 sec L-heavy use of UEs Engineering Systems Analyst Goal (LTG) Pt will improve SLS time to at least 15 B LTG Duration 04/29 back pain Short Term Goal (STG) Be able to sit as needed w/o inc back pain with transition into standing. STG Duration 03/31 [facility] Goal (LTG) Pt will be able to sleep at night w/o issues w/back and buttocks pain. LTG Duration 04/29 activity tolerance Short Term Goal (STG) Pt will be able to comfortably do sit to stand after sitting extended w/o inc pain 02/03-still pain STG Duration achieved 03/06 Engineering Systems Analyst Goal (LTG) Pt will be able to stand as needed and move around house without requiring mult rest breaks in day. 02/13-does not need as many breaks in the day LTG Duration achieved 03/06 strength Short Term Goal (STG) Pt will be indep w/HEP for strength, ROM, balance and pain relief STG Duration achieved-advacning as able Engineering Systems Analyst Goal (LTG) Pt will score at least 4+/5 on MMT LEs and at least 3/5 on LPM in all planes to show improved stability. 02/13-improved; 1 AP/PA L; 2 R 03/06-improving LTG Duration 04/29 Three Impairment HECTOR 19/50 Impairment HECTOR Short Term Goal (STG) Pt will improve score of HECTOR to no greater than 13/50 to show improved functional ability. 02/13-nt STG Duration achieved to 5 Engineering Systems Analyst Goal (LTG) Pt will improve score of HECTOR to no greater than 4/50 to show improved functional ability. 03/06-improved to 5/50 LTG Duration 04/29 Two Impairment stairs step to Impairment Uses substitute muscles to get a PF contraction. Short Term Goal (STG) Pt will be able to go up stairs reciprocally w/o rail w /o inc pain. STG Duration achieved 02/13 [facility] Goal (LTG) Pt will be able to go down stairs reciprocally w/o rail w /o inc pain. 02/13-can but mild difficulty 03/06-mild pain R knee but uses rail for safey LTG Duration 04/29 Assessment Summary Assessment Pt with posterior left knee pain. Exercises without resistance and lower level than previous session. She is making good progress but demonstrates difficulty with balance issues secondary to weak core and glute muscles. She is making good progress and will benefit from group aquatic exercise classes at intermediate level which she states she will be doing. Physical Therapy Plan Frequency and Duration Frequency of Treatment 2x/Week Duration of treatment (weeks) 8 Plan of Care Start Date 03/06/22 Plan of Care End Date 04/29/22 Therapeutic Interventions Therapeutic Interventions Aquatic Therapy,Balance Training,Gait Training,Home Exercise Program,Joint Mobilizations,Manual Therapy, Neuromuscular Re-education, Orthotic/Prosthetic Management ,Patient/Caregiver Education, Self-Care/Home Management,Soft Tissue Mobilization,Taping, Therapeutic Activities, Therapeutic Exercises Modalities Cold Pack/Ice Massage,Electric Stimulation,Hot Packs, Traction- Mechanical, Ultrasound Next Visit Focus/Plan Next Note Type Treatment Note Next Visit Plan cont to work hips and knee joint mobility manually; cont to work on quad and glute strength and core strength Aquatic: progress pt with increased moderate intensity exercises in shallow and deep with lightest resistance fins and hand bells.
--- NOTE | 2022-03-14 11:19 | PT.OTN ---
Current Diagnoses Pain in right knee (03/14/22) Pain in left knee (03/14/22) Lumbago with sciatica, right side (03/14/22) Abnormal posture (03/14/22) Weakness (03/14/22) Physical Therapy Treatment Note PT-OP-A Visit Information Start: 12/06/21 17:49 Freq: Status: Active Protocol: Document 03/14/22 11:18 [facility] (Rec: 03/14/22 11:19 [facility] [id number]) Out-Patient Physical Therapy Visit Information Visit Information Visit Type Treatment Note Visit Note 06/07 Visit Start Time 10:34 Visit Stop Time 11:25 Total Visit Minutes 51 Visit Number 21 Number of GIS SOFTWARE ENGINEER Visits 0 PT-OP-B Current Condition Start: 12/06/21 17:49 Freq: Status: Active Protocol: Document 12/10/21 12:12 [facility] (Rec: 12/10/21 13:49 [facility] [id number]) Current Condition History of Current Condition Current Complaints B knee pain & sciatic pain R buttocks and down leg History of Current Condition Pt reports B knee pain for years without injuries but arthritis and pt notices she is knock-kneed. Notices her feet are off from that. Pt reports sciatic pain has been going on about 10 months. It was around when [facility] moved here . Ant lat thigh pain started w /move and she had a cramp in lat quad region after. Pt reprots buttocks and leg pain that is worst at night. She has to roll back and forth at night. She is getting a sleep study in Dec. Pt erports she has to take ibuprfoen often d/ t pain more so the last 6 months or so. Can only be active for so long and then has to put her feet up. 1 year ago, she had a home gym and was working with a link trainer teacher 2x/ week. This last year, she feels like she is falling apart. She has a lot going on, so she hasn't done as much exercise and self care. Reports she has recently irritated her L shoulder and things she lifted something sideways that was too heavy and now can;t abd or IR and it pops occ. Prior Treatments and Tests L knee xray: Bones: No fractures or dislocations. Moderate narrowing of the lateral compartment joint space with prominent osteophytosis and sclerosis of the lateral tibial plateau. The medial and patellofemoral joint spaces are maintained but demonstrate periarticular osteophytosis. Soft tissues: Small joint effusion. No suspicious soft tissue calcifications. 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 no other treatment tried besides one injection in her knee over 5 years ago that didn't help much. Treatment Goals Patient/Caregiver Goals Get to where she doesn't have LB/hip pain, get her legs stronger so she can be more stable w/knees, be able to increase stamina PT-OP-C Subjective Start: 12/06/21 17:49 Freq: Status: Active Protocol: Document 03/14/22 11:18 [facility] (Rec: 03/14/22 11:19 [facility] [id number]) OP-PT Subjective Patient Comments Patient Comments Was walking through parking lot on Friday and L knee hyperextended and had pain in ant knee. She is doing better overall. Happened again 2 days later getting up from couch. PT-OP-G Mobility & Gait Start: 12/06/21 17:49 Freq: Status: Active Protocol: Document 12/10/21 12:12 [facility] (Rec: 12/10/21 13:49 [facility] [id number]) OP Gait Assessment Comments Gait Comments no UE motion, dec trunk motion , dec push off B, lat lean b PT-OP-J Posture/Palpation/Skin Start: 12/06/21 17:49 Freq: Status: Active Protocol: Document 03/06/22 09:46 [facility] (Rec: 03/06/22 11:23 [facility] [id number]) Posture Evaluation [facility] Postural Classification System Lumbar Protective Mechanism Left AP 1 Lumbar Protective Mechanism Right AP 2 Lumbar Protective Mechanism Left PA 1 Lumbar Protective Mechanism Right PA 2 PT-OP-K Range of Motion Start: 12/06/21 17:49 Freq: Status: Active Protocol: Document 12/10/21 12:12 [facility] (Rec: 12/10/21 13:49 [facility] [id number]) Lumbar Spine Range of Motion Lumbar Spine Active Degrees Rotation Left 48 Rotation Right 45 Comments 1 in above patella w/lumbar only, 2 in above ankle flex, ext about 80%; SB equal B good ROM Knee Goniometric Range of Motion Knee Right Flexion Active (degrees) 90 Extension Active (degrees) 10 Left Flexion Active (degrees) 113 Extension Active (degrees) 10 PT-OP-L Special Tests Start: 12/06/21 17:49 Freq: Status: Active Protocol: Document 12/10/21 12:12 [facility] (Rec: 12/10/21 13:49 [facility] [id number]) Special Tests Lumbar Spine Special Tests Chay's Test Results neg B Milind Test Results quads tight B Straight Leg Raise Test Results 91 L; 68 R Slump Test Results tightness R PT-OP-M Strength Start: 12/06/21 17:49 Freq: Status: Active Protocol: Document 03/06/22 09:46 [facility] (Rec: 03/06/22 11:22 [facility] [id number]) Hip Strength Hip Manual Muscle Testing Right Flexion (L2) 4+ Good+ Extension (S1) 4- Good- Abduction 3+ Fair+ Adduction 5 Normal External Rotation 4+ Good+ Internal Rotation 5 Normal Comments crepitis B & shifting of knee w/ER Left Flexion (L2) 5 Normal Extension (S1) 4+ Good+ Abduction 4 Good Adduction 5 Normal External Rotation 4+ Good+ Internal Rotation 5 Normal Knee Strength Knee Manual Muscle Testing Right Flexion (S2) 5 Normal Extension (L3) 5 Normal Left Flexion (S2) 5 Normal Extension (L3) 5 Normal Ankle/Foot Strength Ankle and Foot Manual Muscle Testing Right Dorsiflexion (L4) 5 Normal Plantarflexion (S1) 5 Normal Comments 20 heel raises Left Dorsiflexion (L4) 5 Normal Plantarflexion (S1) 5 Normal Comments 20 heel raises PT-OP-Q Treatments Start: 12/06/21 17:49 Freq: Status: Active Protocol: Document 03/14/22 11:18 [facility] (Rec: 03/14/22 11:19 [facility] [id number]) Cardio Equipment Bicycle (Upright) Duration (Minutes) 6 Resistance 10 Seat Position 8 Gym Equipment Shuttle Recovery Unilateral Squats Resistance 50# R 37L Shuttle Recovery Platform Stable Reps/Time 2x12 ea Gait Training Gait Activity stairs Comments up/down lobby stairs (28 6 in stairs )-cues for full ext up no rail; down sliding hand on rail w/cues for 'quiet wt shifts Comments fwd in mirror x15 B-cues for full wt shift and no trunk lean Manual Therapy Treatment Soft Tissue Mobilization HS Body Location L HS and calf Mobilization Type Rolling,Strumming Intensity/Depth Moderate Comments knee ext and APs Joint Mobilizations tibfem Joint L AP femur FM Patellofemoral Joint sup, inf, med FM L PT-OP-R Modalities Start: 12/06/21 17:49 Freq: Status: Active Protocol: Document 03/14/22 11:18 [facility] (Rec: 03/14/22 11:19 [facility] [id number]) Hot Pack/Cold Pack Treatment Cold Pack Location B knees Patient Position Hooklying Treatment Duration (minutes) 10 Patient Tolerance Good PT-OP-S Aquatic Treatment Start: 01/24/22 12:48 Freq: Status: Active Protocol: Document 03/11/22 14:23 [facility] (Rec: 03/11/22 14:37 [facility] [id number]) Aquatics Treatment Pool Entry/Exit Pool Entry/Exit Method Stairs Assistance Independent Water Walking Tandem Gait Water Level Chest Level straight leg may Water Level Chest Level may Water Level Chest Level Comments reaching to opp side side Water Level Chest Level backward Water Level Chest Level forward Water Level Chest Level Lower Extremity Exercises jog Water Level Chest Level Reps/Duration 5 min shallow Comments warm-up rocking horse Details intervals Reps/Duration 30/15 2 min jacks Details intervals Water Level Chest Level Reps/Duration 30/15 3 min cross country ski Details intervals Water Level Chest Level Reps/Duration 30/[address] hip Body Position Standing Water Level Chest Level Equipment Resistance Fins Reps/Duration 10x ea Lower Extremity Stretches adductors Water Level Waist Level Equipment noodle Reps/Duration 2x30 Comments feet on wall; added body swing hip flexor Body Position Standing Water Level Waist Level Reps/Duration 2x30 Comments at wall quads Body Position Standing Water Level Chest Level Reps/Duration 2x30 Comments therapist assist ITB Body Position Standing Water Level Chest Level Equipment Small Noodle Reps/Duration 2x30 HS Body Position Standing Water Level Chest Level Equipment Small Noodle Reps/Duration 2x30 Spinal Exercises rotation Details cords Body Position Standing Water Level Waist Level Equipment stretch cords 1 lg Reps/Duration 10 B Comments cue ecc. control wonderboard Body Position Sitting Reps/Duration 3 min Comments good control Balance boxes Details SLS; up/down; side step [place] Activities [place] Activities Bicycle Backwards,Cross Country,Hip Abduction/ Adduction,Sit Kicks Other Activities pendulum, shoot thru DLS crunches Equipment belt, BBs Duration 20 Comments exercises kept lower level because of knee pain PT-OP-T Assessment and Plan Start: 12/06/21 17:49 Freq: Status: Active Protocol: Document 03/14/22 11:18 [facility] (Rec: 03/14/22 11:19 [facility] [id number]) Physical Therapy Assessment Goals balance Impairment 2 sec R; 10 sec L-heavy use of UEs Nursing Home Goal (LTG) Pt will improve SLS time to at least 15 B LTG Duration 04/29 back pain Short Term Goal (STG) Be able to sit as needed w/o inc back pain with transition into standing. STG Duration 03/31 Mud Cleaner Operator Goal (LTG) Pt will be able to sleep at night w/o issues w/back and buttocks pain. LTG Duration 04/29 activity tolerance Short Term Goal (STG) Pt will be able to comfortably do sit to stand after sitting extended w/o inc pain 02/03-still pain STG Duration achieved 03/06 Mud Cleaner Operator Goal (LTG) Pt will be able to stand as needed and move around house without requiring mult rest breaks in day. 02/13-does not need as many breaks in the day LTG Duration achieved 03/06 strength Short Term Goal (STG) Pt will be indep w/HEP for strength, ROM, balance and pain relief STG Duration achieved-advacning as able Nursing Home Goal (LTG) Pt will score at least 4+/5 on MMT LEs and at least 3/5 on LPM in all planes to show improved stability. 02/13-improved; 1 AP/PA L; 2 R 03/06-improving LTG Duration 04/29 Three Impairment HECTOR 19/50 Impairment HECTOR Short Term Goal (STG) Pt will improve score of HECTOR to no greater than 13/50 to show improved functional ability. 02/13-nt STG Duration achieved to 5 Mud Cleaner Operator Goal (LTG) Pt will improve score of HECTOR to no greater than 4/50 to show improved functional ability. 03/06-improved to 5/50 LTG Duration 04/29 Two Impairment stairs step to Impairment Uses substitute muscles to get a PF contraction. Short Term Goal (STG) Pt will be able to go up stairs reciprocally w/o rail w /o inc pain. STG Duration achieved 02/13 Mud Cleaner Operator Goal (LTG) Pt will be able to go down stairs reciprocally w/o rail w /o inc pain. 02/13-can but mild difficulty 03/06-mild pain R knee but uses rail for safey LTG Duration 04/29 Assessment Summary Assessment Pt does well w/wt shfts once she is in mirror and cued but does require botht o help w/ more straight wt shift. Improved L knee ext after manual treatmet Physical Therapy Plan Frequency and Duration Frequency of Treatment 2x/Week Duration of treatment (weeks) 8 Plan of Care Start Date 03/06/22 Plan of Care End Date 04/29/22 Next Visit Focus/Plan Next Note Type Treatment Note Next Visit Plan cont to work hips and knee joint mobility manually; cont to work on quad and glute strength and core strength Aquatic: progress pt with increased moderate intensity exercises in shallow and deep with lightest resistance fins and hand bells.
--- NOTE | 2022-03-27 10:53 | PT.OTN ---
Current Diagnoses Pain in right knee (03/27/22) Pain in left knee (03/27/22) Lumbago with sciatica, right side (03/27/22) Abnormal posture (03/27/22) Weakness (03/27/22) Physical Therapy Treatment Note PT-OP-A Visit Information Start: 12/06/21 17:49 Freq: Status: Active Protocol: Document 03/27/22 09:49 [facility] (Rec: 03/27/22 10:42 [facility] [id number]) Out-Patient Physical Therapy Visit Information Visit Information Visit Type Treatment Note Visit Note 07/08 Visit Start Time 09:49 Visit Stop Time 10:40 Total Visit Minutes 51 Visit Number 22 Number of WELFARE CENTRE MANAGER Visits 0 PT-OP-B Current Condition Start: 12/06/21 17:49 Freq: Status: Active Protocol: Document 12/10/21 12:12 [facility] (Rec: 12/10/21 13:49 [facility] [id number]) Current Condition History of Current Condition Current Complaints B knee pain & sciatic pain R buttocks and down leg History of Current Condition Pt reports B knee pain for years without injuries but arthritis and pt notices she is knock-kneed. Notices her feet are off from that. Pt reports sciatic pain has been going on about 10 months. It was around when [facility] moved here . Ant lat thigh pain started w /move and she had a cramp in lat quad region after. Pt reprots buttocks and leg pain that is worst at night. She has to roll back and forth at night. She is getting a sleep study in Dec. Pt erports she has to take ibuprfoen often d/ t pain more so the last 6 months or so. Can only be active for so long and then has to put her feet up. 1 year ago, she had a home gym and was working with a field trainer 2x/ week. This last year, she feels like she is falling apart. She has a lot going on, so she hasn't done as much exercise and self care. Reports she has recently irritated her L shoulder and things she lifted something sideways that was too heavy and now can;t abd or IR and it pops occ. Prior Treatments and Tests L knee xray: Bones: No fractures or dislocations. Moderate narrowing of the lateral compartment joint space with prominent osteophytosis and sclerosis of the lateral tibial plateau. The medial and patellofemoral joint spaces are maintained but demonstrate periarticular osteophytosis. Soft tissues: Small joint effusion. No suspicious soft tissue calcifications. 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 no other treatment tried besides one injection in her knee over 5 years ago that didn't help much. Treatment Goals Patient/Caregiver Goals Get to where she doesn't have LB/hip pain, get her legs stronger so she can be more stable w/knees, be able to increase stamina PT-OP-C Subjective Start: 12/06/21 17:49 Freq: Status: Active Protocol: Document 03/27/22 09:49 [facility] (Rec: 03/27/22 10:42 [facility] [id number]) OP-PT Subjective Patient Comments Patient Comments Pt reports overall feeling good. She did a lot of cooking , and shopping and cleaning and was able to stand as she needed to. By the end of the evening, she was tired. She has to roll around in bed a lot for comfort of back/hip. It is a new mattress PT-OP-G Mobility & Gait Start: 12/06/21 17:49 Freq: Status: Active Protocol: Document 12/10/21 12:12 [facility] (Rec: 12/10/21 13:49 [facility] [id number]) OP Gait Assessment Comments Gait Comments no UE motion, dec trunk motion , dec push off B, lat lean b PT-OP-J Posture/Palpation/Skin Start: 12/06/21 17:49 Freq: Status: Active Protocol: Document 03/06/22 09:46 [facility] (Rec: 03/06/22 11:23 [facility] [id number]) Posture Evaluation [facility] Postural Classification System Lumbar Protective Mechanism Left AP 1 Lumbar Protective Mechanism Right AP 2 Lumbar Protective Mechanism Left PA 1 Lumbar Protective Mechanism Right PA 2 PT-OP-K Range of Motion Start: 12/06/21 17:49 Freq: Status: Active Protocol: Document 12/10/21 12:12 [facility] (Rec: 12/10/21 13:49 [facility] [id number]) Lumbar Spine Range of Motion Lumbar Spine Active Degrees Rotation Left 48 Rotation Right 45 Comments 1 in above patella w/lumbar only, 2 in above ankle flex, ext about 80%; SB equal B good ROM Knee Goniometric Range of Motion Knee Right Flexion Active (degrees) 90 Extension Active (degrees) 10 Left Flexion Active (degrees) 113 Extension Active (degrees) 10 PT-OP-L Special Tests Start: 12/06/21 17:49 Freq: Status: Active Protocol: Document 12/10/21 12:12 [facility] (Rec: 12/10/21 13:49 [facility] [id number]) Special Tests Lumbar Spine Special Tests Chay's Test Results neg B Milind Test Results quads tight B Straight Leg Raise Test Results 91 L; 68 R Slump Test Results tightness R PT-OP-M Strength Start: 12/06/21 17:49 Freq: Status: Active Protocol: Document 03/06/22 09:46 [facility] (Rec: 03/06/22 11:22 [facility] [id number]) Hip Strength Hip Manual Muscle Testing Right Flexion (L2) 4+ Good+ Extension (S1) 4- Good- Abduction 3+ Fair+ Adduction 5 Normal External Rotation 4+ Good+ Internal Rotation 5 Normal Comments crepitis B & shifting of knee w/ER Left Flexion (L2) 5 Normal Extension (S1) 4+ Good+ Abduction 4 Good Adduction 5 Normal External Rotation 4+ Good+ Internal Rotation 5 Normal Knee Strength Knee Manual Muscle Testing Right Flexion (S2) 5 Normal Extension (L3) 5 Normal Left Flexion (S2) 5 Normal Extension (L3) 5 Normal Ankle/Foot Strength Ankle and Foot Manual Muscle Testing Right Dorsiflexion (L4) 5 Normal Plantarflexion (S1) 5 Normal Comments 20 heel raises Left Dorsiflexion (L4) 5 Normal Plantarflexion (S1) 5 Normal Comments 20 heel raises PT-OP-Q Treatments Start: 12/06/21 17:49 Freq: Status: Active Protocol: Document 03/27/22 09:49 [facility] (Rec: 03/27/22 10:42 [facility] [id number]) Cardio Equipment Bicycle (Upright) Duration (Minutes) 6 Resistance 10 Seat Position 8 Gym Equipment Shuttle Balance red clips Comments fwd & side: WBOS & NBOS fwd: staggered stance Gait Training Gait Activity stairs Comments up/down lobby stairs (28 6 in stairs )-cues for full ext up no rail; down sliding hand on rail w/cues for 'quiet wt shifts Comments fwd in mirror x15 B-cues for full wt shift and no trunk lean fwd wt shift w/step thru x10 B Manual Therapy Treatment Soft Tissue Mobilization ITB Body Location R Mobilization Type Strumming Intensity/Depth Moderate Body Position Prone Comments w/ER Joint Mobilizations Hip Joint R Direction hip on axis ER FM Reps/Duration manual facilitiaton at end range Neuro Re-Education Treatment Balance Activities bosu Comments 1. step ups to BLE balance x10 B 2. squat blue side x3 (mini)- stopped d/t knee popping PT-OP-R Modalities Start: 12/06/21 17:49 Freq: Status: Active Protocol: Document 03/27/22 09:49 [facility] (Rec: 03/27/22 10:42 [facility] [id number]) Hot Pack/Cold Pack Treatment Cold Pack Location B knees Patient Position Hooklying Treatment Duration (minutes) 10 Patient Tolerance Good PT-OP-S Aquatic Treatment Start: 01/24/22 12:48 Freq: Status: Active Protocol: Document 03/11/22 14:23 [facility] (Rec: 03/11/22 14:37 [id number]) Aquatics Treatment Pool Entry/Exit Pool Entry/Exit Method Stairs Assistance Independent Water Walking Tandem Gait Water Level Chest Level straight leg may Water Level Chest Level march Water Level Chest Level Comments reaching to opp side side Water Level Chest Level backward Water Level Chest Level forward Water Level Chest Level Lower Extremity Exercises jog Water Level Chest Level Reps/Duration 5 min shallow Comments warm-up rocking horse Details intervals Reps/Duration 30/15 2 min jacks Details intervals Water Level Chest Level Reps/Duration 30/15 3 min cross country ski Details intervals Water Level Chest Level Reps/Duration 30/[address] hip Body Position Standing Water Level Chest Level Equipment Resistance Fins Reps/Duration 10x ea Lower Extremity Stretches adductors Water Level Waist Level Equipment noodle Reps/Duration 2x30 Comments feet on wall; added body swing hip flexor Body Position Standing Water Level Waist Level Reps/Duration 2x30 Comments at wall quads Body Position Standing Water Level Chest Level Reps/Duration 2x30 Comments therapist assist ITB Body Position Standing Water Level Chest Level Equipment Small Noodle Reps/Duration 2x30 HS Body Position Standing Water Level Chest Level Equipment Small Noodle Reps/Duration 2x30 Spinal Exercises rotation Details cords Body Position Standing Water Level Waist Level Equipment stretch cords 1 lg Reps/Duration 10 B Comments cue ecc. control wonderboard Body Position Sitting Reps/Duration 3 min Comments good control Balance boxes Details SLS; up/down; side step [place] Activities [place] Activities Bicycle Backwards,Cross Country,Hip Abduction/ Adduction,Sit Kicks Other Activities pendulum, shoot thru DLS crunches Equipment belt, BBs Duration 20 Comments exercises kept lower level because of knee pain PT-OP-T Assessment and Plan Start: 12/06/21 17:49 Freq: Status: Active Protocol: Document 03/27/22 09:49 [facility] (Rec: 03/27/22 10:42 [facility] [id number]) Physical Therapy Assessment Goals balance Impairment 2 sec R; 10 sec L-heavy use of UEs [facility]fp Goal (LTG) Pt will improve SLS time to at least 15 B LTG Duration 04/29 back pain Short Term Goal (STG) Be able to sit as needed w/o inc back pain with transition into standing. STG Duration 03/31 Mcfp Goal (LTG) Pt will be able to sleep at night w/o issues w/back and buttocks pain. LTG Duration 04/29 activity tolerance Short Term Goal (STG) Pt will be able to comfortably do sit to stand after sitting extended w/o inc pain 02/03-still pain STG Duration achieved 03/06 Mcfp Goal (LTG) Pt will be able to stand as needed and move around house without requiring mult rest breaks in day. 02/13-does not need as many breaks in the day LTG Duration achieved 03/06 strength Short Term Goal (STG) Pt will be indep w/HEP for strength, ROM, balance and pain relief STG Duration achieved-advacning as able Mcfp Goal (LTG) Pt will score at least 4+/5 on MMT LEs and at least 3/5 on LPM in all planes to show improved stability. 02/13-improved; 1 AP/PA L; 2 R 03/06-improving LTG Duration 04/29 Three Impairment HECTOR 19/50 Impairment HECTOR Short Term Goal (STG) Pt will improve score of HECTOR to no greater than 13/50 to show improved functional ability. 02/13-nt STG Duration achieved to Staff Field Engineer Goal (LTG) Pt will improve score of HECTOR to no greater than 4/50 to show improved functional ability. 03/06-improved to 5/50 LTG Duration 04/29 Two Impairment stairs step to Impairment Uses substitute muscles to get a PF contraction. Short Term Goal (STG) Pt will be able to go up stairs reciprocally w/o rail w /o inc pain. STG Duration achieved 02/13 Staff Field Engineer Goal (LTG) Pt will be able to go down stairs reciprocally w/o rail w /o inc pain. 02/13-can but mild difficulty 03/06-mild pain R knee but uses rail for safey LTG Duration 04/29 Assessment Summary Assessment Improved wt shifts today and did well with balance but was challenged by this activity. After manula, pt had improved ER Physical Therapy Plan Next Visit Focus/Plan Next Note Type Treatment Note Next Visit Plan cont to work hips and knee joint mobility manually; cont to work on quad and glute strength and core strength
--- NOTE | 2022-04-10 09:45 | PT.OTN ---
Current Diagnoses Pain in right knee (04/10/22) Pain in left knee (04/10/22) Lumbago with sciatica, right side (04/10/22) Abnormal posture (04/10/22) Weakness (04/10/22) Physical Therapy Treatment Note PT-OP-A Visit Information Start: 12/06/21 17:49 Freq: Status: Active Protocol: Document 04/10/22 09:01 SP (Rec: 04/10/22 10:15 SP [id number]) Out-Patient Physical Therapy Visit Information Visit Information Visit Type Treatment Note Visit Note 08/07 Visit Start Time 09:01 Visit Stop Time 09:45 Total Visit Minutes 44 Visit Number 23 Number of KEYING MACHINE OPERATOR Visits 1 PT-OP-B Current Condition Start: 12/06/21 17:49 Freq: Status: Active Protocol: Document 12/10/21 12:12 [facility] (Rec: 12/10/21 13:49 [facility] [id number]) Current Condition History of Current Condition Current Complaints B knee pain & sciatic pain R buttocks and down leg History of Current Condition Pt reports B knee pain for years without injuries but arthritis and pt notices she is knock-kneed. Notices her feet are off from that. Pt reports sciatic pain has been going on about 10 months. It was around when [facility] moved here . Ant lat thigh pain started w /move and she had a cramp in lat quad region after. Pt reprots buttocks and leg pain that is worst at night. She has to roll back and forth at night. She is getting a sleep study in Dec. Pt erports she has to take ibuprfoen often d/ t pain more so the last 6 months or so. Can only be active for so long and then has to put her feet up. 1 year ago, she had a home gym and was working with a industrial trainer 2x/ week. This last year, she feels like she is falling apart. She has a lot going on, so she hasn't done as much exercise and self care. Reports she has recently irritated her L shoulder and things she lifted something sideways that was too heavy and now can;t abd or IR and it pops occ. Prior Treatments and Tests L knee xray: Bones: No fractures or dislocations. Moderate narrowing of the lateral compartment joint space with prominent osteophytosis and sclerosis of the lateral tibial plateau. The medial and patellofemoral joint spaces are maintained but demonstrate periarticular osteophytosis. Soft tissues: Small joint effusion. No suspicious soft tissue calcifications. 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 no other treatment tried besides one injection in her knee over 5 years ago that didn't help much. Treatment Goals Patient/Caregiver Goals Get to where she doesn't have LB/hip pain, get her legs stronger so she can be more stable w/knees, be able to increase stamina PT-OP-C Subjective Start: 12/06/21 17:49 Freq: Status: Active Protocol: Document 04/10/22 09:01 SP (Rec: 04/10/22 10:15 SP [id number]) OP-PT Subjective Patient Comments Patient Comments Pt states taking Celebrex not daily and helping when need it for pain. She said compliant w/ HEP in pool 2x/wk. PT-OP-G Mobility & Gait Start: 12/06/21 17:49 Freq: Status: Active Protocol: Document 12/10/21 12:12 [facility] (Rec: 12/10/21 13:49 [facility] [id number]) OP Gait Assessment Comments Gait Comments no UE motion, dec trunk motion , dec push off B, lat lean b PT-OP-J Posture/Palpation/Skin Start: 12/06/21 17:49 Freq: Status: Active Protocol: Document 03/06/22 09:46 [facility] (Rec: 03/06/22 11:23 [facility] [id number]) Posture Evaluation [facility] Postural Classification System Lumbar Protective Mechanism Left AP 1 Lumbar Protective Mechanism Right AP 2 Lumbar Protective Mechanism Left PA 1 Lumbar Protective Mechanism Right PA 2 PT-OP-K Range of Motion Start: 12/06/21 17:49 Freq: Status: Active Protocol: Document 12/10/21 12:12 [facility] (Rec: 12/10/21 13:49 [facility] [id number]) Lumbar Spine Range of Motion Lumbar Spine Active Degrees Rotation Left 48 Rotation Right 45 Comments 1 in above patella w/lumbar only, 2 in above ankle flex, ext about 80%; SB equal B good ROM Knee Goniometric Range of Motion Knee Right Flexion Active (degrees) 90 Extension Active (degrees) 10 Left Flexion Active (degrees) 113 Extension Active (degrees) 10 PT-OP-L Special Tests Start: 12/06/21 17:49 Freq: Status: Active Protocol: Document 12/10/21 12:12 [facility] (Rec: 12/10/21 13:49 [facility] [id number]) Special Tests Lumbar Spine Special Tests Chay's Test Results neg B Milind Test Results quads tight B Straight Leg Raise Test Results 91 L; 68 R Slump Test Results tightness R PT-OP-M Strength Start: 12/06/21 17:49 Freq: Status: Active Protocol: Document 03/06/22 09:46 [facility] (Rec: 03/06/22 11:22 [facility] [id number]) Hip Strength Hip Manual Muscle Testing Right Flexion (L2) 4+ Good+ Extension (S1) 4- Good- Abduction 3+ Fair+ Adduction 5 Normal External Rotation 4+ Good+ Internal Rotation 5 Normal Comments crepitis B & shifting of knee w/ER Left Flexion (L2) 5 Normal Extension (S1) 4+ Good+ Abduction 4 Good Adduction 5 Normal External Rotation 4+ Good+ Internal Rotation 5 Normal Knee Strength Knee Manual Muscle Testing Right Flexion (S2) 5 Normal Extension (L3) 5 Normal Left Flexion (S2) 5 Normal Extension (L3) 5 Normal Ankle/Foot Strength Ankle and Foot Manual Muscle Testing Right Dorsiflexion (L4) 5 Normal Plantarflexion (S1) 5 Normal Comments 20 heel raises Left Dorsiflexion (L4) 5 Normal Plantarflexion (S1) 5 Normal Comments 20 heel raises PT-OP-Q Treatments Start: 12/06/21 17:49 Freq: Status: Active Protocol: Document 04/10/22 09:01 SP (Rec: 04/10/22 10:15 SP [id number]) Cardio Equipment Bicycle (Upright) Duration (Minutes) 6 Resistance 10 Seat Position 8 Other 64RPM, miles Gym Equipment Shuttle Recovery Unilateral Squats Resistance 50# B Shuttle Recovery Platform Stable Reps/Time 2x15 Therapeutic Exercises Standing Exercises Resisted Sidestep Standing Exercise Name Bandwalking, lat/fwd/bwd Side bilateral Resistance RTB Equipment Used out in open Reps/Minutes 2 x 10ft ea Comments cued tall posturing, neutral pelvis/PPT, clear rail LE, core/hip abd fac Gait Training Gait Activity stairs Comments up/down lobby stairs (28 6 in stairs )-cues for full ext up w/hip ER no rail; down sliding hand on rail w/cues for quiet foot strike and core, slow eccentric quad fac into flexion. Improved self corrections especially that last 1 . PT-OP-R Modalities Start: 12/06/21 17:49 Freq: Status: Active Protocol: Document 03/27/22 09:49 LR (Rec: 03/27/22 10:42 [facility] [id number]) Hot Pack/Cold Pack Treatment Cold Pack Location B knees Patient Position Hooklying Treatment Duration (minutes) 10 Patient Tolerance Good PT-OP-S Aquatic Treatment Start: 01/24/22 12:48 Freq: Status: Active Protocol: Document 03/11/22 14:23 LJ (Rec: 03/11/22 14:37 LJ [id number]) Aquatics Treatment Pool Entry/Exit Pool Entry/Exit Method Stairs Assistance Independent Water Walking Tandem Gait Water Level Chest Level straight leg may Water Level Chest Level may Water Level Chest Level Comments reaching to opp side side Water Level Chest Level backward Water Level Chest Level forward Water Level Chest Level Lower Extremity Exercises jog Water Level Chest Level Reps/Duration 5 min shallow Comments warm-up rocking horse Details intervals Reps/Duration 30/15 2 min jacks Details intervals Water Level Chest Level Reps/Duration 30/15 3 min cross country ski Details intervals Water Level Chest Level Reps/Duration 30/[address] hip Body Position Standing Water Level Chest Level Equipment Resistance Fins Reps/Duration 10x ea Lower Extremity Stretches adductors Water Level Waist Level Equipment noodle Reps/Duration 2x30 Comments feet on wall; added body swing hip flexor Body Position Standing Water Level Waist Level Reps/Duration 2x30 Comments at wall quads Body Position Standing Water Level Chest Level Reps/Duration 2x30 Comments therapist assist ITB Body Position Standing Water Level Chest Level Equipment Small Noodle Reps/Duration 2x30 HS Body Position Standing Water Level Chest Level Equipment Small Noodle Reps/Duration 2x30 Spinal Exercises rotation Details cords Body Position Standing Water Level Waist Level Equipment stretch cords 1 lg Reps/Duration 10 B Comments cue ecc. control wonderboard Body Position Sitting Reps/Duration 3 min Comments good control Balance boxes Details SLS; up/down; side step [place] Activities [place] Activities Bicycle Backwards,Cross Country,Hip Abduction/ Adduction,Sit Kicks Other Activities pendulum, shoot thru DLS crunches Equipment belt, BBs Duration 20 Comments exercises kept lower level because of knee pain PT-OP-T Assessment and Plan Start: 12/06/21 17:49 Freq: Status: Active Protocol: Document 04/10/22 09:01 SP (Rec: 04/10/22 10:15 SP [id number]) Physical Therapy Assessment Goals balance Impairment 2 sec R; 10 sec L-heavy use of UEs Cardiology Rn Goal (LTG) Pt will improve SLS time to at least 15 B LTG Duration 04/29 back pain Short Term Goal (STG) Be able to sit as needed w/o inc back pain with transition zack standing. 04/10/22: GOAL MET: stated sat 3 hrs at movies and had stiffness and little discomfort behind knee but after wt shifts went away. STG Duration 03/31 GOAL MET Cardiology Rn Goal (LTG) Pt will be able to sleep at night w/o issues w/back and buttocks pain. 04/10/22: Progressing; pain wakes her but when rolls over usually goes away or changes sleep on back with pillows under thighs and paing goes away. LTG Duration 04/29 progressin04/10/22 activity tolerance Short Term Goal (STG) Pt will be able to comfortably do sit to stand after sitting extended w/o inc pain 02/03-still pain STG Duration achieved 03/06 Skilled Nursing Goal (LTG) Pt will be able to stand as needed and move around house without requiring mult rest breaks in day. 02/13-does not need as many breaks in the day LTG Duration achieved 03/06 strength Short Term Goal (STG) Pt will be indep w/HEP for strength, ROM, balance and pain relief STG Duration achieved-advacning as able Cardiology Rn Goal (LTG) Pt will score at least 4+/5 on MMT LEs and at least 3/5 on LPM in all planes to show improved stability. 02/13-improved; 1 AP/PA L; 2 R 03/06-improving LTG Duration 04/29 Three Impairment HECTOR 19/50 Impairment HECTOR Short Term Goal (STG) Pt will improve score of HECTOR to no greater than 13/50 to show improved functional ability. 02/13-nt STG Duration achieved to 5/50 Cardiology Rn Goal (LTG) Pt will improve score of HECTOR to no greater than 4/50 to show improved functional ability. 03/06-improved to 5/50 LTG Duration 04/29 Two Impairment stairs step to Impairment Uses substitute muscles to get a PF contraction. Short Term Goal (STG) Pt will be able to go up stairs reciprocally w/o rail w /o inc pain. STG Duration achieved 02/13 Skilled Nursing Goal (LTG) Pt will be able to go down stairs reciprocally w/o rail w /o inc pain. 02/13-can but mild difficulty 03/06-mild pain R knee but uses rail for safey LTG Duration 04/29 Assessment Summary Assessment Pt improved self corrections core, hip facilitation along with knee alignment lateral w/ mid foot during shuttle recovery, good carryover with cues band walk and stair mgt eccentric control. Physical Therapy Plan Frequency and Duration Frequency of Treatment 2x/Week Duration of treatment (weeks) 8 Plan of Care Start Date 03/06/22 Plan of Care End Date 04/29/22 Therapeutic Interventions Therapeutic Interventions Aquatic Therapy,Balance Training,Gait Training,Home Exercise Program,Joint Mobilizations,Manual Therapy, Neuromuscular Re-education, Orthotic/Prosthetic Management ,Patient/Caregiver Education, Self-Care/Home Management,Soft Tissue Mobilization,Taping, Therapeutic Activities, Therapeutic Exercises Modalities Cold Pack/Ice Massage,Electric Stimulation,Hot Packs, Traction- Mechanical, Ultrasound Next Visit Focus/Plan Next Note Type Treatment Note Next Visit Plan Continue band walk. Add sport cord. POC: cont to work hips and knee joint mobility manually; cont to work on quad and glute strength and core strength
--- NOTE | 2022-04-17 14:33 | PT.OTN ---
Current Diagnoses Pain in right knee (04/17/22) Pain in left knee (04/17/22) Lumbago with sciatica, right side (04/17/22) Abnormal posture (04/17/22) Weakness (04/17/22) Physical Therapy Treatment Note PT-OP-A Visit Information Start: 12/06/21 17:49 Freq: Status: Active Protocol: Document 04/17/22 13:53 [facility] (Rec: 04/17/22 14:31 [facility] [id number]) Out-Patient Physical Therapy Visit Information Visit Information Visit Type Treatment Note Visit Start Time 13:45 Visit Stop Time 14:28 Total Visit Minutes 43 Visit Number 24 Number of TOOLING ENGINEER Visits 0 PT-OP-B Current Condition Start: 12/06/21 17:49 Freq: Status: Active Protocol: Document 12/10/21 12:12 [facility] (Rec: 12/10/21 13:49 [facility] [id number]) Current Condition History of Current Condition Current Complaints B knee pain & sciatic pain R buttocks and down leg History of Current Condition Pt reports B knee pain for years without injuries but arthritis and pt notices she is knock-kneed. Notices her feet are off from that. Pt reports sciatic pain has been going on about 10 months. It was around when [facility] moved here . Ant lat thigh pain started w /move and she had a cramp in lat quad region after. Pt reprots buttocks and leg pain that is worst at night. She has to roll back and forth at night. She is getting a sleep study in Dec. Pt erports she has to take ibuprfoen often d/ t pain more so the last 6 months or so. Can only be active for so long and then has to put her feet up. 1 year ago, she had a home gym and was working with a net trainer 2x/ week. This last year, she feels like she is falling apart. She has a lot going on, so she hasn't done as much exercise and self care. Reports she has recently irritated her L shoulder and things she lifted something sideways that was too heavy and now can;t abd or IR and it pops occ. Prior Treatments and Tests L knee xray: Bones: No fractures or dislocations. Moderate narrowing of the lateral compartment joint space with prominent osteophytosis and sclerosis of the lateral tibial plateau. The medial and patellofemoral joint spaces are maintained but demonstrate periarticular osteophytosis. Soft tissues: Small joint effusion. No suspicious soft tissue calcifications. 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 no other treatment tried besides one injection in her knee over 5 years ago that didn't help much. Treatment Goals Patient/Caregiver Goals Get to where she doesn't have LB/hip pain, get her legs stronger so she can be more stable w/knees, be able to increase stamina PT-OP-C Subjective Start: 12/06/21 17:49 Freq: Status: Active Protocol: Document 04/17/22 13:53 [facility] (Rec: 04/17/22 14:31 [facility] [id number]) OP-PT Subjective Patient Comments Patient Comments pt reports being busy recently so not working out as much. PT-OP-G Mobility & Gait Start: 12/06/21 17:49 Freq: Status: Active Protocol: Document 12/10/21 12:12 [facility] (Rec: 12/10/21 13:49 [facility] [id number]) OP Gait Assessment Comments Gait Comments no UE motion, dec trunk motion , dec push off B, lat lean b PT-OP-J Posture/Palpation/Skin Start: 12/06/21 17:49 Freq: Status: Active Protocol: Document 04/17/22 13:53 [facility] (Rec: 04/17/22 14:31 [facility] [id number]) Posture Evaluation [facility] Postural Classification System Lumbar Protective Mechanism Left AP 3 Lumbar Protective Mechanism Right AP 3 Lumbar Protective Mechanism Left PA 3 Lumbar Protective Mechanism Right PA 3 PT-OP-K Range of Motion Start: 12/06/21 17:49 Freq: Status: Active Protocol: Document 12/10/21 12:12 [facility] (Rec: 12/10/21 13:49 [facility] [id number]) Lumbar Spine Range of Motion Lumbar Spine Active Degrees Rotation Left 48 Rotation Right 45 Comments 1 in above patella w/lumbar only, 2 in above ankle flex, ext about 80%; SB equal B good ROM Knee Goniometric Range of Motion Knee Right Flexion Active (degrees) 90 Extension Active (degrees) 10 Left Flexion Active (degrees) 113 Extension Active (degrees) 10 PT-OP-L Special Tests Start: 12/06/21 17:49 Freq: Status: Active Protocol: Document 12/10/21 12:12 [facility] (Rec: 12/10/21 13:49 [facility] [id number]) Special Tests Lumbar Spine Special Tests Chay's Test Results neg B Milind Test Results quads tight B Straight Leg Raise Test Results 91 L; 68 R Slump Test Results tightness R PT-OP-M Strength Start: 12/06/21 17:49 Freq: Status: Active Protocol: Document 04/17/22 13:53 [facility] (Rec: 04/17/22 14:31 [facility] [id number]) Hip Strength Hip Manual Muscle Testing Right Flexion (L2) 4+ Good+ Extension (S1) 5 Normal Abduction 4 Good Adduction 5 Normal Internal Rotation 5 Normal Comments crepitis B & shifting of knee w/ER Left Flexion (L2) 4+ Good+ Extension (S1) 5 Normal Abduction 4 Good Adduction 5 Normal External Rotation 5 Normal Internal Rotation 5 Normal Knee Strength Knee Manual Muscle Testing Right Flexion (S2) 5 Normal Extension (L3) 5 Normal Left Flexion (S2) 5 Normal Extension (L3) 5 Normal Ankle/Foot Strength Ankle and Foot Manual Muscle Testing Right Dorsiflexion (L4) 5 Normal Plantarflexion (S1) 5 Normal Comments 20 heel raises Left Dorsiflexion (L4) 5 Normal Plantarflexion (S1) 5 Normal Comments 20 heel raises PT-OP-Q Treatments Start: 12/06/21 17:49 Freq: Status: Active Protocol: Document 04/17/22 13:53 [facility] (Rec: 04/17/22 14:31 [facility] [id number]) Cardio Equipment Bicycle (Upright) Duration (Minutes) 7 Resistance 10 Seat Position 8 Therapeutic Exercises Supine Exercises Bridging Supine Exercise Name alt march Side bilateral Reps/Minutes 8 PPT Supine Exercise Name B flex iso Side bilateral Reps/Minutes 30 sec Standing Exercises SL Standing Exercise Name SLS in mirror workng on hip position Side bilateral hip hike Side bilateral Equipment Used on step w/rail Reps/Minutes 15 ea sit to stand Side bilateral Equipment Used lvl 2 band around knees Reps/Minutes 15 Comments from slightly elevated mat Resisted Sidestep Side bilateral Equipment Used L2 Reps/Minutes 20ft ea direction Manual Therapy Treatment Soft Tissue Mobilization ITB Body Location R Mobilization Type Strumming Intensity/Depth Moderate Body Position Prone Comments w/ER quad Body Location R Mobilization Type Rolling Intensity/Depth Moderate Body Position Hooklying Joint Mobilizations tibfem Comments PA FM PT-OP-R Modalities Start: 12/06/21 17:49 Freq: Status: Active Protocol: Document 03/27/22 09:49 [facility] (Rec: 03/27/22 10:42 [facility] [id number]) Hot Pack/Cold Pack Treatment Cold Pack Location B knees Patient Position Hooklying Treatment Duration (minutes) 10 Patient Tolerance Good PT-OP-S Aquatic Treatment Start: 01/24/22 12:48 Freq: Status: Active Protocol: Document 03/11/22 14:23 LJ (Rec: 03/11/22 14:37 [facility] [id number]) Aquatics Treatment Pool Entry/Exit Pool Entry/Exit Method Stairs Assistance Independent Water Walking Tandem Gait Water Level Chest Level straight leg march Water Level Chest Level march Water Level Chest Level Comments reaching to opp side side Water Level Chest Level backward Water Level Chest Level forward Water Level Chest Level Lower Extremity Exercises jog Water Level Chest Level Reps/Duration 5 min shallow Comments warm-up rocking horse Details intervals Reps/Duration 30/15 2 min jacks Details intervals Water Level Chest Level Reps/Duration 30/15 3 min cross country ski Details intervals Water Level Chest Level Reps/Duration 30/[address] hip Body Position Standing Water Level Chest Level Equipment Resistance Fins Reps/Duration 10x ea Lower Extremity Stretches adductors Water Level Waist Level Equipment noodle Reps/Duration 2x30 Comments feet on wall; added body swing hip flexor Body Position Standing Water Level Waist Level Reps/Duration 2x30 Comments at wall quads Body Position Standing Water Level Chest Level Reps/Duration 2x30 Comments therapist assist ITB Body Position Standing Water Level Chest Level Equipment Small Noodle Reps/Duration 2x30 HS Body Position Standing Water Level Chest Level Equipment Small Noodle Reps/Duration 2x30 Spinal Exercises rotation Details cords Body Position Standing Water Level Waist Level Equipment stretch cords 1 lg Reps/Duration 10 B Comments cue ecc. control wonderboard Body Position Sitting Reps/Duration 3 min Comments good control Balance boxes Details SLS; up/down; side step [place] Activities [place] Activities Bicycle Backwards,Cross [place],Hip Abduction/ Adduction,Sit Kicks Other Activities pendulum, shoot thru DLS crunches Equipment belt, BBs Duration 20 Comments exercises kept lower level because of knee pain PT-OP-T Assessment and Plan Start: 12/06/21 17:49 Freq: Status: Active Protocol: Document 04/17/22 13:53 [facility] (Rec: 04/17/22 14:31 [facility] [id number]) Physical Therapy Assessment Goals balance Impairment 2 sec R; 10 sec L-heavy use of UEs Road Roller Engineer Goal (LTG) Pt will improve SLS time to at least 15 B LTG Duration improved to 13 sec L, 10 sec R back pain Short Term Goal (STG) Be able to sit as needed w/o inc back pain with transition zack standing. 04/10/22: GOAL MET: stated sat 3 hrs at movies and had stiffness and little discomfort behind knee but after wt shifts went away. STG Duration 03/31 GOAL MET Assisted Goal (LTG) Pt will be able to sleep at night w/o issues w/back and buttocks pain. 04/10/22: Progressing; pain wakes her but when rolls over usually goes away or changes sleep on back with pillows under thighs and paing goes away. LTG Duration can fall right back asleep and adjust if needed activity tolerance Short Term Goal (STG) Pt will be able to comfortably do sit to stand after sitting extended w/o inc pain 02/03-still pain STG Duration achieved 03/06 Road Roller Engineer Goal (LTG) Pt will be able to stand as needed and move around house without requiring mult rest breaks in day. 02/13-does not need as many breaks in the day LTG Duration achieved 03/06 strength Short Term Goal (STG) Pt will be indep w/HEP for strength, ROM, balance and pain relief STG Duration achieved-advacning as able Road Roller Engineer Goal (LTG) Pt will score at least 4+/5 on MMT LEs and at least 3/5 on LPM in all planes to show improved stability. 02/13-improved; 1 AP/PA L; 2 R 03/06-improving LTG Duration improved but still some limit w/abd Three Impairment HECTOR 19/50 Impairment HECTOR Short Term Goal (STG) Pt will improve score of HECTOR to no greater than 13/50 to show improved functional ability. 02/13-nt STG Duration achieved to 5/50 Assisted Goal (LTG) Pt will improve score of HECTOR to no greater than 4/50 to show improved functional ability. 03/06-improved to 5/50 LTG Duration 6/50 Two Impairment stairs step to Impairment Uses substitute muscles to get a PF contraction. Short Term Goal (STG) Pt will be able to go up stairs reciprocally w/o rail w /o inc pain. STG Duration achieved 02/13 Road Roller Engineer Goal (LTG) Pt will be able to go down stairs reciprocally w/o rail w /o inc pain. 02/13-can but mild difficulty 03/06-mild pain R knee but uses rail for safey LTG Duration achieved 04/17-likes ot use rail for safety Assessment Summary Assessment Pt is making excellent progress w/PT and is indep w/ HEP and having min limit in daily life w/back and B knees. She had improved gait pattern and strength and is to cont working on these w/HEP and aquatic program. DC at this time Physical Therapy Plan Discharge Physical Therapy Discharge Reasons Goals Met
== END 2022-04-17 14:49 | disposition home or self-care (01) ==
LOC: PHYS 13:45
PROVIDERS: Family Provider Family Medicine; PCP Family Medicine; Referring Provider Family Medicine; Visit Provider Family Medicine
DX: M54.41 Lumbago with sciatica, right side (principal); R53.1 Weakness; R29.3 Abnormal posture; M25.561 Pain in right knee; M25.562 Pain in left knee
CPT/HCPCS: 97110; 97112; 97113; 97116; 97140; 97162; 97530

== ENCOUNTER → 2022-04-23 14:32 | Outpatient (CLI) | payer MEDICARE, SELFPAY ==
--- NOTE | 2022-04-23 | DI.MG.S_ITS ---
BILATERAL DIGITAL SCREENING MAMMOGRAM 3D/2D WITH CAD: 04/23/2022 CLINICAL: Routine screening. Comparison is made to exams dated: 10/19/2020 mammogram, 06/04/2018 mammogram, 04/24/2016 mammogram, and 03/18/2014 mammogram - outside location. There are scattered areas of fibroglandular density in both breasts (category b / 25%-50% glandular tissue). Current study was also evaluated with a Computer Aided Detection (CAD) system. There are benign calcifications in both breasts. There also are benign post operative findings in both breasts. No significant masses, calcifications, or other findings are seen in either breast. There has been no significant interval change. IMPRESSION: BENIGN There is no mammographic evidence of malignancy. A 1 year screening mammogram is recommended. Based on the Tyrer Cuzick model (a risk assessment model) the patient's lifetime risk is 7.1% and her 10 year risk is 3.4%. According to the ACR, ACS, and NCCN guidelines, an annual breast MRI exam along with mammogram is recommended if the patient's lifetime risk is 20% or greater. This exam was interpreted at Station ID: [id number]. NOTE: For mammograms, a report in lay terms will be sent to the patient. Approximately 15% of breast malignancies will not be visualized mammographically. In the management of a palpable breast mass, a negative mammogram must not discourage biopsy of a clinically suspicious lesion. Electronically Signed By: Sylvester weir/[email or web address]:04/23/2022 19:02:19 letter sent: Normal Exam ACR BI-RADS Category 2: Benign Finding(s) 3342F
== END ==
PROVIDERS: Family Provider Family Medicine; PCP Family Medicine; Referring Provider Family Medicine; Visit Provider Family Medicine
DX: Z12.31 Encounter for screening mammogram for malignant neoplasm of breast (principal); Z78.0 Asymptomatic menopausal state; Z13.820 Encounter for screening for osteoporosis; Z92.23 Personal history of estrogen therapy
CPT/HCPCS: 77063; 77067; 77080

== ENCOUNTER → 2022-07-04 06:42 | Outpatient (CLI) | payer MEDICARE, SELFPAY ==
[2022-07-04 08:21] LABS: Alanine Aminotransferase 20 IU/L (<35); Albumin Globulin Ratio 1.3 (1.0-2.8); Alkaline Phosphatase 59 U/L (38-126); Aspartate Aminotransferase 25 IU/L (14-36); BUN Creatinine Ratio 23.8 (6-22); Bilirubin Total 0.4 mg/dL (0.2-1.3); Blood Urea Nitrogen 15 mg/dL (7-17); Calcium 9.3 mg/dL (8.4-10.2); Carbon Dioxide 28 mmol/L (22-32); Chloride 104 mmol/L (98-107); Cholesterol 248 mg/dL (140-199); Estimated Glomerular Filt Rate > 60 mL/min (>60); Globulin 3.2 g/dL (1.7-4.1); Glucose 104 mg/dL (80-110); HDL Cholesterol 68 mg/dL (40-60); HEMOLYSIS < 15 (0-50); LDL Cholesterol Calculated 158 mg/dL (<100); Potassium 4.5 mmol/L (3.4-5.1); Sodium 139 mmol/L (137-145); Total Protein 7.2 g/dL (6.3-8.2); Triglycerides 108 mg/dL (35-150)
[2022-07-05 06:04] LABS: Labcorp Hemoglobin (Hb) A1c 5.8 % (4.8-5.6)
== END ==
PROVIDERS: Family Provider Family Medicine; PCP Family Medicine; Referring Provider Family Medicine; Visit Provider Family Medicine
DX: E78.5 Hyperlipidemia, unspecified (principal); R73.01 Impaired fasting glucose
CPT/HCPCS: 36415; 80053; 80061; 83036

== ENCOUNTER → 2022-10-25 07:07 | Outpatient (CLI) | payer MEDICARE, SELFPAY | PROVIDERS: Family Provider Family Medicine; PCP Family Medicine; Visit Provider Physician Assistant | DX: N39.0 Urinary tract infection, site not specified (principal) | CPT/HCPCS: 87086 ==

== ENCOUNTER → 2022-10-25 07:47 | Outpatient (CLI) | payer MEDICARE, SELFPAY ==
[2022-10-25 08:56] LABS: Alanine Aminotransferase 25 IU/L (<35); Albumin 4.2 g/dL (3.5-5.0); Albumin Globulin Ratio 1.4 (1.0-2.8); Alkaline Phosphatase 62 U/L (38-126); Aspartate Aminotransferase 30 IU/L (14-36); BUN Creatinine Ratio 23.3 (6-22); Bilirubin Total 0.7 mg/dL (0.2-1.3); Blood Urea Nitrogen 17 mg/dL (7-17); Calcium 9.5 mg/dL (8.4-10.2); Carbon Dioxide 29 mmol/L (22-32); Chloride 102 mmol/L (98-107); Estimated Glomerular Filt Rate > 60 mL/min (>60); Glucose 99 mg/dL (80-110); HEMOLYSIS < 15 (0-50); Potassium 4.2 mmol/L (3.4-5.1); Sodium 137 mmol/L (137-145); Total Protein 7.2 g/dL (6.3-8.2)
[2022-10-25 09:12] LABS: Vitamin D 25 Hydroxy (D3) 39.5 ng/mL (30.0-100.0)
[2022-10-25 09:46] LABS: Hep C Virus Ab w/Reflex Quant NEGATIVE s/c (NEGATIVE)
[2022-10-26 07:03] LABS: Cholesterol HDL Ratio 2.3 ratio (0.0-4.4); Cholesterol,Total 166 mg/dL (100-199); HDL Cholesterol 72 mg/dL (>39); LDL Cholesterol Cal 79 mg/dL (0-99); Triglycerides 80 mg/dL (0-149); VLDL Cholesterol Cal 15 mg/dL (5-40); x Labcorp Estim. Avg Glu (eAG) 120 mg/dL (.); x Labcorp Hemoglobin A1c 5.8 % (4.8-5.6)
== END ==
PROVIDERS: Family Provider Family Medicine; PCP Nurse Practitioner Family; Referring Provider Nurse Practitioner Family; Visit Provider Nurse Practitioner Family
DX: E55.9 Vitamin D deficiency, unspecified (principal); R73.9 Hyperglycemia, unspecified; E78.5 Hyperlipidemia, unspecified; N39.0 Urinary tract infection, site not specified; Z11.59 Encounter for screening for other viral diseases
CPT/HCPCS: 36415; 80053; 80061; 82306; 83036; 86803; 87086

== ENCOUNTER → 2023-03-10 07:59 | Outpatient (CLI) | payer MEDICARE, SELFPAY ==
[2023-03-10 09:19] LABS: Alanine Aminotransferase 16 IU/L (<35); Albumin 4.5 g/dL (3.5-5.0); Albumin Globulin Ratio 1.3 (1.0-2.8); Alkaline Phosphatase 67 U/L (38-126); Aspartate Aminotransferase 26 IU/L (14-36); BUN Creatinine Ratio 14.7 (6-22); Bilirubin Total 0.9 mg/dL (0.2-1.3); Blood Urea Nitrogen 11 mg/dL (7-17); Calcium 9.9 mg/dL (8.4-10.2); Carbon Dioxide 28 mmol/L (22-32); Chloride 102 mmol/L (98-107); Estimated Glomerular Filt Rate > 60 mL/min (>60); Globulin 3.4 g/dL (1.7-4.1); Glucose 100 mg/dL (80-110); HEMOLYSIS < 15 (0-50); Potassium 4.4 mmol/L (3.4-5.1); Sodium 138 mmol/L (137-145); Total Protein 7.9 g/dL (6.3-8.2)
[2023-03-10 09:20] LABS: Hemoglobin A1C% w Est Avg Glu 5.5 % (4.0-6.0)
[2023-03-11 04:10] LABS: Cholesterol HDL Ratio 2.2 ratio (0.0-4.4); Cholesterol,Total 150 mg/dL (100-199); HDL Cholesterol 69 mg/dL (>39); LDL Cholesterol Cal 65 mg/dL (0-99); Triglycerides 88 mg/dL (0-149); VLDL Cholesterol Cal 16 mg/dL (5-40)
[2023-03-11 14:42] LABS: Vitamin D 25 Hydroxy (D3) 41.9 ng/mL (30.0-100.0)
== END ==
PROVIDERS: Family Provider Family Medicine; PCP Nurse Practitioner Family; Referring Provider Nurse Practitioner Family; Visit Provider Nurse Practitioner Family
DX: E78.5 Hyperlipidemia, unspecified (principal); R73.9 Hyperglycemia, unspecified; E55.9 Vitamin D deficiency, unspecified
CPT/HCPCS: 36415; 80053; 80061; 82306; 83036

== ENCOUNTER → 2023-04-28 14:15 | Outpatient (CLI) | payer MEDICARE, SELFPAY ==
--- NOTE | 2023-04-28 | DI.MG.S_ITS ---
BILATERAL DIGITAL SCREENING MAMMOGRAM 3D/2D WITH CAD: 04/28/2023 CLINICAL: Routine screening. Comparison is made to exams dated: 04/23/2022 mammogram - [facility] [place], 10/19/2020 mammogram, and 06/04/2018 mammogram - outside location. There are scattered areas of fibroglandular density in both breasts (category b / 25%-50% glandular tissue). Current study was also evaluated with a Computer Aided Detection (CAD) system. There are benign calcifications in both breasts. There also are benign post operative findings in both breasts. No significant masses, calcifications, or other findings are seen in either breast. There has been no significant interval change. IMPRESSION: BENIGN There is no mammographic evidence of malignancy. A 1 year screening mammogram is recommended. Based on the Tyrer Cuzick model (a risk assessment model) the patient's lifetime risk is 6.8% and her 10 year risk is 3.4%. According to the ACR, ACS, and NCCN guidelines, an annual breast MRI exam along with mammogram is recommended if the patient's lifetime risk is 20% or greater. This exam was interpreted at Station ID: [id number]. NOTE: For mammograms, a report in lay terms will be sent to the patient. Approximately 15% of breast malignancies will not be visualized mammographically. In the management of a palpable breast mass, a negative mammogram must not discourage biopsy of a clinically suspicious lesion. Electronically Signed By: Kandy paul/[email or web address]:04/28/2023 15:45:35 letter sent: Normal Exam ACR BI-RADS Category 2: Benign Finding(s) 3342F
== END ==
LOC: MAMMO 14:16
PROVIDERS: Family Provider Nurse Practitioner Family; PCP Nurse Practitioner Family; Referring Provider Nurse Practitioner Family; Visit Provider Nurse Practitioner Family
DX: Z12.31 Encounter for screening mammogram for malignant neoplasm of breast (principal); R92.323 Mammographic fibroglandular density, bilateral breasts
CPT/HCPCS: 77063; 77067

== ENCOUNTER → 2023-04-30 14:22 | Outpatient (CLI) | payer MEDICARE, SELFPAY | PROVIDERS: Family Provider Nurse Practitioner Family; PCP Nurse Practitioner Family; Visit Provider Nurse Practitioner Family | DX: M54.50 Low back pain, unspecified (principal) | CPT/HCPCS: 87086 ==

== ENCOUNTER → 2023-07-15 07:46 | Outpatient (CLI) | payer MEDICARE, SELFPAY ==
[2023-07-15 08:59] LABS: Alanine Aminotransferase 12 IU/L (<35); Albumin 4.4 g/dL (3.5-5.0); Albumin Globulin Ratio 1.4 (1.0-2.8); Alkaline Phosphatase 84 U/L (38-126); Aspartate Aminotransferase 23 IU/L (14-36); BUN Creatinine Ratio 20.8 (6-22); Bilirubin Total 0.5 mg/dL (0.2-1.3); Blood Urea Nitrogen 16 mg/dL (7-17); Calcium 9.7 mg/dL (8.4-10.2); Carbon Dioxide 27 mmol/L (22-32); Chloride 106 mmol/L (98-107); Cholesterol 158 mg/dL (140-199); Estimated Glomerular Filt Rate > 60 mL/min (>60); Globulin 3.1 g/dL (1.7-4.1); Glucose 105 mg/dL (80-110); HDL Cholesterol 74 mg/dL (40-60); HEMOLYSIS < 15 (0-50); LDL Cholesterol Calculated 64 mg/dL (<100); Potassium 4.5 mmol/L (3.4-5.1); Sodium 138 mmol/L (137-145); Total Protein 7.5 g/dL (6.3-8.2); Triglycerides 101 mg/dL (35-150)
[2023-07-15 09:29] LABS: TSH w/ Reflex to FT4 3.21 uIU/mL (0.47-4.68)
[2023-07-15 09:56] LABS: Hemoglobin A1C% w Est Avg Glu 5.6 % (4.0-6.0)
== END ==
LOC: LAB 07:47
PROVIDERS: Family Provider Nurse Practitioner Family; PCP Nurse Practitioner Family; Referring Provider Nurse Practitioner Family; Visit Provider Nurse Practitioner Family
DX: E78.5 Hyperlipidemia, unspecified (principal); R73.9 Hyperglycemia, unspecified; E66.9 Obesity, unspecified
CPT/HCPCS: 36415; 80053; 80061; 83036; 84443

== ENCOUNTER → 2023-07-16 16:59 | Outpatient (CLI) | payer MEDICARE, SELFPAY ==
[2023-07-16 17:39] LABS: Add Manual Diff / Slide Review NO; Basophils Absolute Auto 100 /uL (0-100); Basophils Percent Auto 1.2 % (0-2); Eosinophils Absolute Auto 200 /uL (0-450); Eosinophils Percent Auto 2.2 % (2-4); Hematocrit 37.1 % (36-46); Hemoglobin 12.6 g/dL (12.0-16.0); Lymphocytes Absolute Auto 1700 /uL (1100-4500); Lymphocytes Percent Auto 24.1 % (25-40); Mean Corpuscular Hemoglobin 30.9 PG (26-34); Monocytes Absolute Auto 700 /uL (0-900); Monocytes Percent Auto 9.4 % (3-14); Neutrophils Absolute Auto 4500 /uL (1500-7000); Neutrophils Percent Auto 63.1 % (50-75); Platelet Count 312 X10^3/uL (150-400); Red Blood Cell Count 4.08 X10^6/uL (4.0-5.2); Red Cell Distribution Width 13.4 % (11.6-14.8); White Blood Cell Count 7.1 X10^3/uL (4.5-11.0)
== END ==
PROVIDERS: Family Provider Nurse Practitioner Family; PCP Nurse Practitioner Family; Referring Provider Nurse Practitioner Family; Visit Provider Nurse Practitioner Family
DX: R53.83 Other fatigue (principal)
CPT/HCPCS: 36415; 84443; 85025

== ENCOUNTER → 2023-10-20 13:47 | Outpatient (CLI) | payer MEDICARE, SELFPAY ==
[2023-10-20 14:18] LABS: Appearance Urine UA SL CLOUDY; Bilirubin Urine UA NEGATIVE (NEGATIVE); Color Urine UA YELLOW; Glucose Urine UA NEGATIVE (Negative); Ketones Urine UA NEGATIVE (NEGATIVE); Leukocyte Esterase Urine UA TRACE (NEGATIVE); Nitrite Urine UA NEGATIVE (Negative); Occult Blood Urine UA NEGATIVE (Negative); Protein Urine UA NEGATIVE (Negative); Specific Gravity Urine UA 1.015 (1.000-1.035); Urobilinogen Urine UA 0.2 E.U./dL (0.2)
[2023-10-20 14:42] LABS: Bacteria Urine Many (>30); Culture Indicated Urine Specimen Cultured; RBC Urine None Seen (0-5/HPF); Squamous Epithelial Cell Urine 1-5 /HPF (0-5/HPF); Urine Volume 10mL (spun); WBC Urine 5-10/HPF (0-5/HPF); pH Urine UA 5.5 (4.5-8.0)
== END ==
PROVIDERS: Family Provider Nurse Practitioner Family; PCP Nurse Practitioner Family; Visit Provider Student in an Organized Health Care Education/Training Program
DX: R30.0 Dysuria (principal)
CPT/HCPCS: 81001; 87077; 87086

== ENCOUNTER → 2023-12-24 07:53 | Outpatient (CLI) | payer MEDICARE, SELFPAY ==
[2023-12-24 08:33] LABS: Add Manual Diff / Slide Review NO; Basophils Absolute Auto 100 /uL (0-100); Basophils Percent Auto 1.3 % (0-2); Eosinophils Absolute Auto 200 /uL (0-450); Hematocrit 39.6 % (36-46); Hemoglobin 13.6 g/dL (12.0-16.0); Lymphocytes Absolute Auto 1400 /uL (1100-4500); Lymphocytes Percent Auto 26.5 % (25-40); Mean Corpuscular HGB Conc 34.3 % (30-36); Mean Corpuscular Hemoglobin 31.3 PG (26-34); Mean Corpuscular Volume 91.1 fL (80-100); Monocytes Absolute Auto 600 /uL (0-900); Monocytes Percent Auto 11.7 % (3-14); Neutrophils Absolute Auto 3100 /uL (1500-7000); Neutrophils Percent Auto 57.5 % (50-75); Platelet Count 282 X10^3/uL (150-400); Red Blood Cell Count 4.35 X10^6/uL (4.0-5.2); Red Cell Distribution Width 13.1 % (11.6-14.8); White Blood Cell Count 5.4 X10^3/uL (4.5-11.0)
[2023-12-24 08:45] LABS: Hemoglobin A1C% w Est Avg Glu 5.5 % (4.0-6.0)
[2023-12-24 08:48] LABS: HEMOLYSIS < 15 (0-50)
[2023-12-24 08:53] LABS: Iron 102 ug/dL (37-170)
[2023-12-24 09:00] LABS: Alanine Aminotransferase 21 IU/L (<35); Albumin 3.9 g/dL (3.5-5.0); Albumin Globulin Ratio 1.3 (1.0-2.8); Alkaline Phosphatase 76 U/L (38-126); Aspartate Aminotransferase 30 IU/L (14-36); BUN Creatinine Ratio 21.1 (6-22); Bilirubin Total 0.6 mg/dL (0.2-1.3); Blood Urea Nitrogen 15 mg/dL (7-17); Calcium 9.5 mg/dL (8.4-10.2); Carbon Dioxide 29 mmol/L (22-32); Chloride 103 mmol/L (98-107); Estimated Glomerular Filt Rate > 60 mL/min (>60); Globulin 3.1 g/dL (1.7-4.1); Glucose 106 mg/dL (80-110); HEMOLYSIS < 15 (0-50); Potassium 4.5 mmol/L (3.4-5.1); Sodium 136 mmol/L (137-145)
[2023-12-24 09:04] LABS: Percent Iron Saturation 34 % (15-50); Total Iron Binding Capacity 300 ug/dL (265-497); Transferrin 235 mg/dL (206-381)
[2023-12-24 09:29] LABS: TSH w/ Reflex to FT4 3.15 uIU/mL (0.47-4.68)
[2023-12-24 20:01] LABS: Folate 11.9 ng/mL (2.76-20.0); Vitamin B12 632 pg/mL (239-931)
== END ==
PROVIDERS: Family Provider Nurse Practitioner Family; PCP Student in an Organized Health Care Education/Training Program; Referring Provider Student in an Organized Health Care Education/Training Program; Visit Provider Student in an Organized Health Care Education/Training Program
DX: R53.83 Other fatigue (principal); R73.03 Prediabetes; R20.0 Anesthesia of skin; R20.2 Paresthesia of skin
CPT/HCPCS: 36415; 80053; 82607; 82746; 83036; 83540; 83550; 84443; 85025

== ENCOUNTER → 2024-03-12 11:32 | Outpatient (CLI) | payer MEDICARE, SELFPAY | PROVIDERS: PCP Student in an Organized Health Care Education/Training Program; Referring Provider Student in an Organized Health Care Education/Training Program; Visit Provider Student in an Organized Health Care Education/Training Program | DX: R39.9 Unspecified symptoms and signs involving the genitourinary system (principal) | CPT/HCPCS: 87077; 87086; 87186 ==

== ENCOUNTER → 2024-03-21 09:56 | Outpatient (CLI) | payer MEDICARE, SELFPAY | PROVIDERS: PCP Student in an Organized Health Care Education/Training Program; Visit Provider Physician Assistant Medical | DX: R10.9 Unspecified abdominal pain (principal) | CPT/HCPCS: 87077; 87086; 87186 ==

== ENCOUNTER → 2024-04-02 16:44 | Outpatient (CLI) | payer MEDICARE, SELFPAY ==
[2024-04-02 17:37] LABS: Appearance Urine UA CLEAR; Bilirubin Urine UA NEGATIVE (NEGATIVE); Color Urine UA YELLOW; Glucose Urine UA NEGATIVE (Negative); Ketones Urine UA NEGATIVE (NEGATIVE); Leukocyte Esterase Urine UA NEGATIVE (NEGATIVE); Nitrite Urine UA NEGATIVE (Negative); Occult Blood Urine UA NEGATIVE (Negative); Protein Urine UA NEGATIVE (Negative); Specific Gravity Urine UA <=1.005 (1.000-1.035); Urobilinogen Urine UA 0.2 E.U./dL (0.2)
[2024-04-02 17:39] LABS: pH Urine UA 5.5 (4.5-8.0)
[2024-04-02 17:43] LABS: Bacteria Urine Occasional (0-1); Culture Indicated Urine Cult Not Indicated; RBC Urine 0-1/HPF (0-5/HPF); Squamous Epithelial Cell Urine 1-5 /HPF (0-5/HPF); Urine Volume 10mL (spun); WBC Urine 0-1/HPF (0-5/HPF)
== END ==
LOC: LAB 16:44
PROVIDERS: PCP Student in an Organized Health Care Education/Training Program; Referring Provider Student in an Organized Health Care Education/Training Program; Visit Provider Student in an Organized Health Care Education/Training Program
DX: N30.00 Acute cystitis without hematuria (principal)
CPT/HCPCS: 81001

== ENCOUNTER → 2024-05-03 10:51 | Outpatient (CLI) | payer MEDICARE, SELFPAY ==
[2024-05-03 12:14] LABS: Alanine Aminotransferase 18 IU/L (<35); Albumin 4.6 g/dL (3.5-5.0); Albumin Globulin Ratio 1.6 (1.0-2.8); Alkaline Phosphatase 72 U/L (38-126); Aspartate Aminotransferase 29 IU/L (14-36); BUN Creatinine Ratio 17.5 (6-22); Bilirubin Total 0.8 mg/dL (0.2-1.3); Blood Urea Nitrogen 14 mg/dL (7-17); Calcium 9.9 mg/dL (8.4-10.2); Carbon Dioxide 23 mmol/L (22-32); Chloride 106 mmol/L (98-107); Estimated Glomerular Filt Rate > 60 mL/min (>60); Globulin 2.9 g/dL (1.7-4.1); Glucose 96 mg/dL (80-110); HEMOLYSIS < 15 (0-50); Potassium 4.3 mmol/L (3.4-5.1); Sodium 138 mmol/L (137-145); Total Protein 7.5 g/dL (6.3-8.2)
== END ==
PROVIDERS: PCP Student in an Organized Health Care Education/Training Program; Referring Provider Student in an Organized Health Care Education/Training Program; Visit Provider Student in an Organized Health Care Education/Training Program
DX: Z79.899 Other long term (current) drug therapy (principal)
CPT/HCPCS: 36415; 80053

== ENCOUNTER → 2024-06-08 16:24 | Outpatient (CLI) | payer MEDICARE, SELFPAY ==
--- NOTE | 2024-06-08 16:24 | DI.MG.S_ITS ---
MM screening mammo BI: 06/08/2024. BI-RADS: 2 CLINICAL: 68-year old female for bilateral screening mammogram. Tyrer-Cuzick lifetime risk of 8.4%. No personal or first-degree family history of breast cancer. PRIOR EXAMS 04/28/2023, 04/23/2022. MAMMOGRAPHY TECHNIQUE: 2D and 3D (tomosynthesis) digital mammographic views obtained, with additional images as needed for full coverage. Current study was also evaluated with a Computer Aided Detection (CAD) system. DENSITY B. There are scattered areas of fibroglandular density. MAMMOGRAPHY FINDINGS Bilateral: Benign-appearing post-surgical changes and calcifications noted. There are no suspicious masses, calcifications, or other findings in the breast. IMPRESSION: * No evidence of malignancy with benign findings. RECOMMENDATIONS Bilateral * Annual screening mammography. OVERALL ASSESSMENT CATEGORY BI-RADS-2: Benign. The [employer] recommends annual screening mammography beginning at age 40 for women with average risk of breast cancer. ELECTRONICALLY SIGNED: Ann Trevino M.D. on 06/09/2024 at 08:24:11 AM PT Interpreting Station ID: [id number]
== END ==
PROVIDERS: PCP Student in an Organized Health Care Education/Training Program; Referring Provider Student in an Organized Health Care Education/Training Program; Visit Provider Student in an Organized Health Care Education/Training Program
DX: Z12.31 Encounter for screening mammogram for malignant neoplasm of breast (principal)
CPT/HCPCS: 77063; 77067

== ENCOUNTER → 2024-06-30 15:40 | Outpatient (CLI) | payer MEDICARE, SELFPAY | PROVIDERS: PCP Student in an Organized Health Care Education/Training Program; Visit Provider Student in an Organized Health Care Education/Training Program | DX: N39.0 Urinary tract infection, site not specified (principal) | CPT/HCPCS: 87077; 87086; 87186 ==

== ENCOUNTER → 2024-08-13 11:07 | Outpatient (CLI) | payer MEDICARE, SELFPAY ==
[2024-08-13 11:46] LABS: Appearance Urine UA CLEAR; Bilirubin Urine UA NEGATIVE (NEGATIVE); Color Urine UA YELLOW; Glucose Urine UA NEGATIVE (Negative); Ketones Urine UA NEGATIVE (NEGATIVE); Leukocyte Esterase Urine UA NEGATIVE (NEGATIVE); Nitrite Urine UA NEGATIVE (Negative); Occult Blood Urine UA TRACE-INTACT (Negative); Protein Urine UA NEGATIVE (Negative); Urobilinogen Urine UA 0.2 E.U./dL (0.2)
[2024-08-13 11:52] LABS: Urine Volume 10mL (spun)
[2024-08-13 11:53] LABS: Bacteria Urine None Seen; Culture Indicated Urine Cult Not Indicated; RBC Urine None Seen (0-5/HPF); Squamous Epithelial Cell Urine 1-5 /HPF (0-5/HPF); WBC Urine None Seen (0-5/HPF)
== END ==
PROVIDERS: PCP Student in an Organized Health Care Education/Training Program; Referring Provider Student in an Organized Health Care Education/Training Program; Visit Provider Student in an Organized Health Care Education/Training Program
DX: N39.0 Urinary tract infection, site not specified (principal)
CPT/HCPCS: 81001; 87086